=== PATIENT | male | born 1945 | race Two or more races ===

== ENCOUNTER 2019-02-25 19:00 | Inpatient (IN) | payer MEDICARE, MEDICAID ==
[~2019-02-25 19:00] MED LIST: Piperacillin/Tazobact 2.25 gm in 0.9% NS 50 ML IV SCH
[2019-02-25] MEDS ORDERED: Sodium Chloride 0.9% 1,000 ML IV ONE ×2 (19:07→20:13)
--- NOTE | 2019-02-25 19:13 | ED Physician Chart ---
ED Chief Complaint/HPI - Patient Information Date Seen:: 02/25/19 Time Seen:: 19:00 Chief Complaint:: decreased level of consciousness History of Present Illness:: Patient was noted to have decreased level of consciousness after having received about 2 hours of dialysis today. Patient normally tracks with his eyes but he apparently stopped doing so. Paramedics were called. Accu-Chek was 124. Allergies:: Allergies Allergy/AdvReac Type Severity Reaction Status Date / Time No Known Allergies Allergy Verified 02/25/19 19:07 Family MD/PCP:: Paramedics Review:: Transfer documents Reviewed ED Review of Systems - Review of Systems General/Constitutional: No fever Skin: No skin lesions Head: No headache Eyes: No loss of vision ENT: No earache Neck: No neck pain, No swelling Cardio Vascular: No chest pain Pulmonary: No SOB GI: No nausea, No vomiting, No diarrhea G/U: No dysuria Musculoskeletal: No bone or joint pain Endocrine: No polyuria Psychiatric: Prior psych history Hematopoietic: No bruising Allergic/Immuno: No urticaria Neurological: No syncope ED Past Medical History - Past Medical History Past Medical History: DM, Dyslipidemia, Seizures, Dementia, Other (ventilator dependent; status post pneumonia; history of atrial fibrillation; seizure disorder; functional quadriplegia; benign prostatic hypertrophy; hyperlipidemia ; renal failure on dialysis ) Family History: Other (unavailable) Social History: Care Facility Surgical History: PEG/GTube (trach), other (trach) Psychiatricy History: Dementia Family Medical History - Family Member Mother History Unknown: Yes ED Physical Exam - Physical Examination Other Gen/Cons comments:: Chronically ill-appearing; nonresponsive Head: Atraumatic Eyes: Lids, conjuctiva normal Skin: Nl inspection ENMT: External ears, nose nl Neck: No JVD Other Respiratory comments:: harsh breath sounds Other Cardio Vascular comments:: Heart sounds inaudible; pulse rapid and regular GI: No tenderness/rebounding/guarding Extremities: No edema Other Neuro/Psych comments:: Nonresponsive ED Labs/Radiology/EKG Results - Lab Results Results: Laboratory Results WBC 16.7 Th/cmm (4.8-10.8) H 02/25/19 19:50 RBC 2.90 Mil/cmm (4.30-5.70) L 02/25/19 19:50 Hgb 9.0 gm/dL (12-16) L 02/25/19 19:50 Hct 26.8 % (41.0-60) L 02/25/19 19:50 MCV 92.4 fl (80-99) 02/25/19 19:50 MCH 30.9 pg (26.0-30.0) H 02/25/19 19:50 MCHC Differential 33.4 pg (28.0-36.0) 02/25/19 19:50 RDW 18.1 % (11.5-20.0) 02/25/19 19:50 Plt Count 231 Th/cmm (150-400) 02/25/19 19:50 MPV 8.4 fl 02/25/19 19:50 Add Manual Diff YES 02/25/19 19:50 Laboratory Results WBC 16.7 Th/cmm (4.8-10.8) H 02/25/19 19:50 RBC 2.90 Mil/cmm (4.30-5.70) L 02/25/19 19:50 Hgb 9.0 gm/dL (12-16) L 02/25/19 19:50 Hct 26.8 % (41.0-60) L 02/25/19 19:50 MCV 92.4 fl (80-99) 02/25/19 19:50 MCH 30.9 pg (26.0-30.0) H 02/25/19 19:50 MCHC Differential 33.4 pg (28.0-36.0) 02/25/19 19:50 RDW 18.1 % (11.5-20.0) 02/25/19 19:50 Plt Count 231 Th/cmm (150-400) 02/25/19 19:50 MPV 8.4 fl 02/25/19 19:50 Add Manual Diff YES 02/25/19 19:50 Sodium 142 mEq/L (136-145) 02/25/19 19:50 Potassium 3.6 mEq/L (3.5-5.1) 02/25/19 19:50 Chloride 105 mEq/L (98-107) 02/25/19 19:50 Carbon Dioxide 24.2 mEq/L (21.0-31.0) 02/25/19 19:50 Anion Gap 16.4 (7.0-16.0) H 02/25/19 19:50 BUN 47 mg/dL (7-25) H 02/25/19 19:50 Creatinine 2.4 mg/dL (0.7-1.3) H 02/25/19 19:50 Est GFR ( Amer) 35.6 ml/min (>90) 02/25/19 19:50 Est GFR (Non-Af Amer) 29.4 ml/min 02/25/19 19:50 BUN/Creatinine Ratio 19.6 02/25/19 19:50 Glucose 115 mg/dL (70-105) H 02/25/19 19:50 Whole Bld Lactic Acid 1.27 mmol/L (0.60-1.99) 02/25/19 19:50 Calcium 9.5 mg/dL (8.6-10.3) 02/25/19 19:50 - EKG Interpretations Rate & Rhythm: sinus tach with a rate of 147 [place]: normal axis ED Assessment - Assessment General Assessment: Patient's blood gases on 100% oxygen were PO2 241.1 PCO2 34 and pH is 7.418. Patient's FiO2 was decreased to 50% and the pulse ox was 100%. Patient's blood pressure got as low as 68/42. He was given 1 L normal saline intravenously and then Levophed was started as the patient's blood pressure was 69/45. I talked to Dr. Lemos about 2049 and patient to be admitted to ICU. ED Septic Shock - . Is Septic Shock (SBP<90, OR Lactate>4 mmol\L) present?: No - <6hrs of presentation: Assessment of Lungs: Ventilator Assessment of Heart: RRR EKG Interpretation: ST elevation, No ST elevation, No ST depression, Tachy Capillary refill evaluation: Capillary refill < 2 secs Skin Exam: Warm, Dry, Good Turgur ED Reassessment (Disposition) - Reassessment Reassessment Condition:: Unchanged - Diagnosis Diagnosis:: Probable aspiration pneumonia; sepsis; septic shock; renal failure on dialysis; ventilator dependent; leukocytosis - Patient Disposition Admitted to:: ICU Spoke to:: Mitch Lemos Admitting Medical Physician:: Mitch Lemos Condition at Disposition:: Critical
[2019-02-25] MEDS ORDERED: Piperacillin Sodium/Tazobact 3.375 gm Vial IV ONE (20:00)
[2019-02-25 20:01] LABS: MEAN CELL VOLUME 92.4 fl (80-99)
[2019-02-25 20:08] LABS: HEMATOCRIT 26.8 % (41.0-60); MEAN CORPUSCULAR HGB CONC 33.4 pg (28.0-36.0); MEAN PLATELET VOLUME 8.4 fl; PLATELET COUNT 231 Th/cmm (150-400); RED CELL DISTRIBUTION WIDTH 18.1 % (11.5-20.0)
[2019-02-25 20:11] LABS: WHITE BLOOD COUNT 16.7 Th/cmm (4.8-10.8)
[2019-02-25 20:19] LABS: ANION GAP 16.4 (7.0-16.0); CALCIUM SERUM 9.5 mg/dL (8.6-10.3); CARBON DIOXIDE 24.2 mEq/L (21.0-31.0); CREATININE - SERUM 2.4 mg/dL (0.7-1.3); GFR AFRICAN-AMERICAN 35.6 ml/min (>90); GFR NON AFRICAN-AMERICAN 29.4 ml/min; POTASSIUM SERUM 3.6 mEq/L (3.5-5.1)
[2019-02-25] MEDS ORDERED: Norepinephrine 4 mg/4mL Vial IV ONE (20:48)
[2019-02-25 21:09] LABS: MEAN CORPUSCULAR HEMOGLOBIN 30.9 pg (27.0-31.0)
[2019-02-25 21:10] LABS: BAND NEUTROPHILE 0 % (0-10); BASOPHIL 0 % (0-3); EOSINOPHIL 0 % (0-5); LYMPHOCYTE 8 % (20-50); MONOCYTE 3 % (2-10); NEUTROPHILS 89 % (40-80); PLATELET ESTIMATE ADEQUATE (NORMAL)
[2019-02-25 22:06] LABS: sO2c 99.6 % (92.0-100.0)
[2019-02-25 23:37] VITALS: BP 100/53
[2019-02-25 23:39] LABS: pH 7.418 (7.35-7.45)
[2019-02-26] MEDS ORDERED: Dextrose 50% 50 mL Abboject IVP PRN (00:26)
[2019-02-26] MEDS ORDERED: GLUCAGON HCl 1 MG KIT IM PRN (00:26)
[2019-02-26] MEDS ORDERED: Piperacillin Sodium/Tazobact 2.25 gm Vial IV ONE (01:49)
[2019-02-26] MEDS ORDERED: Norepinephrine 4 mg/4mL Vial IV ONE (05:23)
[2019-02-26 05:27] LABS: HEMATOCRIT 27.6 % (41.0-60); HEMOGLOBIN 8.8 gm/dL (12-16); MEAN CELL VOLUME 94.1 fl (80-99); MEAN CORPUSCULAR HEMOGLOBIN 30.1 pg (27.0-31.0); MEAN CORPUSCULAR HGB CONC 31.9 pg (28.0-36.0); MEAN PLATELET VOLUME 8.4 fl; PLATELET COUNT 253 Th/cmm (150-400); RED BLOOD COUNT 2.94 Mil/cmm (3.80-5.80); RED CELL DISTRIBUTION WIDTH 18.7 % (11.5-20.0)
[2019-02-26 05:36] LABS: WHITE BLOOD COUNT 21.3 Th/cmm (4.8-10.8)
--- NOTE | 2019-02-26 05:36 | History and Physical ---
History of Present Illness - HPI Chief Complaint: AMS, hypotension HPI: 73 y/o male who presents to [facility] ER for altered mental status after Hemodialysis. Patient has a history of Acute on Chronic Respiratory Failure s/p tracheostomy, sepsis, septic shock, PNA +Pseudomonas and ESBL Klebsiella and Influenzae B, h/o C. Difficile, Karmen albicans, Atrial Fibrillation, Seizure d/o, CVA, Functional Quadreplegia, Dementia, BPH, HTn, DM, Hyperlipidemia, ESRD on HD, Sacral Decubitus Patient had initial labwork done WBC 16.7 H/H 9/26.8 plat 231K Na 142 K 3.5 Bun/Cr 47/2.4 glu 115 Patient was subsequently admitted to ICU for further evaluation and treatment. Vital Signs: Last Vital Signs Temp 98.1 F 02/26/19 03:06 Pulse 116 02/26/19 05:10 Resp 19 02/26/19 03:06 BP 103/62 02/26/19 03:35 Pulse Ox 100 02/26/19 05:10 Past Medical History Cardiovascular: Report: AFIB, HTN, Hyperlipidemia Pulmonary: Report: Other (Acute on Chronic Respiratory Failure) CUSTOMER CARE REPRESENTATIVE: Report: CVA, Dementia GI: Report: Other (dysphagia, s/p gtube placement) Psych: Report: No Pertinent Hx Musculoskeletal: Report: No Pertinent Hx Rheumatologic: Report: No pertinent Hx Infectious Disease: Report: Other (history of PNA, Sepsis.) Renal/: Report: Other (ESRD on HD) Endocrine: Report: Diabetes Dermatology: Report: No Pertinent Hx - Past Surgical History Past Surgical History: Other (s/p tracheostomy, gastrostomy placement.) Family Medical History - Family Member Mother History Unknown: Yes Social History Smoke: No Alcohol: None Drugs: None Lives: Fpc - Medications Home Medications: Home Medication Medication Instructions Recorded Type Acetaminophen [Tylenol] 650 mg GT Q4HR PRN 02/25/19 History Albuterol/Ipratropium Neb [Duoneb 3 ml HHN Q2HR PRN 02/25/19 History Neb] Albuterol/Ipratropium Neb [Duoneb 3 ml HHN Q6HR 02/25/19 History Neb] Amlodipine Besylate 5 mg GT DAILY 02/25/19 History Apixaban [Eliquis] 2.5 mg GT Q12H 02/25/19 History Ascorbic Acid 500 mg GT DAILY 02/25/19 History Atorvastatin Calcium [Lipitor] 40 mg GT HS 02/25/19 History Chlorhexidine Gluconate [Peridex] 10 ml PO BID 02/25/19 History Dextran 70/Hypromellose/Pf 1 each EACH EYE BID 02/25/19 History [Artificial Tears Drops] Epoetin Sidney [Epogen] 6,000 unit SQ MWF 02/25/19 History Folic Acid [Folate*] 1 mg GT DAILY 02/25/19 History Insulin Detemir [Levemir Insulin] 20 units SUBQ Q12H 02/25/19 History Insulin Lispro Sliding Scale See Protocol SUBQ Q6H 02/25/19 History [humaLOG INSULIN SLIDING SCALE] Lactulose 30 ml GT DAILY PRN 02/25/19 History Levetiracetam [Keppra] 750 mg GT Q12H 02/25/19 History Loperamide [Imodium] 2 mg GT Q4H PRN 02/25/19 History Magnesium Oxide 400 mg GT DAILY 02/25/19 History Metoclopramide HCl 5 mg GT Q6H 02/25/19 History Metoprolol Tartrate 25 mg GT BID 02/25/19 History Multivitamin w/ Minerals 1 tab GT DAILY 02/25/19 History [Theragran M] Omeprazole 20 mg PO DAILY 02/25/19 History Sennosides A and B [Senna] 8.6 mg GT HS 02/25/19 History Vancomycin HCL 250 mg /10mL 500 mg GT QID 02/25/19 History [Vancomycin Oral] - Allergies Allergies/Adverse Reactions: Allergies Allergy/AdvReac Type Severity Reaction Status Date / Time No Known Allergies Allergy Verified 02/25/19 19:07 Review of Systems - Review of Systems Constitutional: Report: No Significant Eyes: Report: No Significant ENT: Report: No Significant Respiratory: Report: No Significant Cardiovascular: Report: No Significant Gastrointestinal: Report: No Significant Genitourinary: Report: No Significant Musculoskeletal: Report: No Significant Skin: Report: No Significant Neurological: Report: No Significant Physical Exam - Physical Exam Neck: Report: Within normal limits Cardiovascular Systems: Report: Irregular rhythm was noted Respiratory: Report: Other (decreased breath sounds noted) Abdomen: Report: PEG site is clean Back: Report: Inspection of back is within normal limits. Skin: Report: Other (sacral decubitus noted) Neuro/Psych: Report: Other (aphasia) - Lab Results All Lab Results last 24 hours: Laboratory Results - last 24 hr 02/25/19 02/25/19 02/25/19 19:04 19:50 19:50 WBC 16.7 H RBC 2.90 L Hgb 9.0 L Hct 26.8 L MCV 92.4 MCH 30.9 MCHC Differential 33.4 RDW 18.1 Plt Count 231 MPV 8.4 Add Manual Diff YES Band Neutrophils % 0 Neutrophils (Manual) 89 H Lymphocytes 8 L Monocytes 3 Eosinophils 0 Basophils 0 Platelet Estimate ADEQUATE Specimen Source aterial Sample Site RB pH 7.418 pCO2 34.0 L pO2 241.0 H HCO3 21.5 Base Excess -2.2 O2 Saturation 99.6 Yeison Test N/A Vent Rate 10 Inspired O2 100 Tidal Volume 450 PEEP 5 Pressure (ins/psv/peep) N/A Critical Value DV Sodium 142 Potassium 3.6 Chloride 105 Carbon Dioxide 24.2 Anion Gap 16.4 H BUN 47 H Creatinine 2.4 H Est GFR ( Amer) 35.6 Est GFR (Non-Af Amer) 29.4 BUN/Creatinine Ratio 19.6 Glucose 115 H Whole Bld Lactic Acid Calcium 9.5 02/25/19 19:50 WBC RBC Hgb Hct MCV MCH MCHC Differential RDW Plt Count MPV Add Manual Diff Band Neutrophils % Neutrophils (Manual) Lymphocytes Monocytes Eosinophils Basophils Platelet Estimate Specimen Source Sample Site pH pCO2 pO2 HCO3 Base Excess O2 Saturation Yeison Test Vent Rate Inspired O2 Tidal Volume PEEP Pressure (ins/psv/peep) Critical Value Sodium Potassium Chloride Carbon Dioxide Anion Gap BUN Creatinine Est GFR ( Amer) Est GFR (Non-Af Amer) BUN/Creatinine Ratio Glucose Whole Bld Lactic Acid 1.27 Calcium - Assessment Assessment: AMS leukoocytosis anemia aspiration PNA Acute on Chronic Respiratory Failure s/p tracheostomy sepsis septic shock PNA +Pseudomonas and ESBL Klebsiella and Influenzae B h/o C. Difficile h/o Karmen albicans Chronic Atrial Fibrillation Seizure d/o CVA Functional Quadreplegia Dementia BPH HTN DM Hyperlipidemia ESRD on HD Sacral Decubitus - Plan Plan: repeat labwork CBC, CMP, Lactic Acid ID consult pulmonary consult cardiology consult CXR tomorrow continue Vanco, Zosyn IV
[2019-02-26] MEDS ORDERED: Albuterol/Ipratropium Neb 3 ML AERS HHN PRN (05:40)
[2019-02-26] MEDS ORDERED: Lactulose 10 Gm/15 mL 30mL UDC GT PRN (05:40)
[2019-02-26 05:41] LABS: ALB/GLOB RATIO 0.9 (1.0-1.8); ALBUMIN 3.3 gm/dL (4.2-5.5); ALKALINE PHOSPHATASE 106 U/L (34-104); ANION GAP 14.2 (7.0-16.0); BILIRUBIN,TOTAL 0.7 mg/dL (0.3-1.0); BUN - UREA NITROGEN 55 mg/dL (7-25); CALCIUM SERUM 9.3 mg/dL (8.6-10.3); CARBON DIOXIDE 25.5 mEq/L (21.0-31.0); CHLORIDE 106 mEq/L (98-107); CREATININE - SERUM 2.7 mg/dL (0.7-1.3); GLUCOSE 87 mg/dL (70-105); POTASSIUM SERUM 3.7 mEq/L (3.5-5.1); SGOT 18 U/L (13-39); SGPT/ALT 24 U/L (7-52); SODIUM SERUM 142 mEq/L (136-145); TOTAL PROTEIN,SERUM 7.2 gm/dL (6.0-8.3)
[2019-02-26] MEDS ORDERED: INSULIN LISPRO SLIDING SCALE 100 UNITS/ML UNIT SUBQ SCH (05:45)
[2019-02-26 06:32] LABS: BAND NEUTROPHILE 0 % (0-10); BASOPHIL 0 % (0-3); EOSINOPHIL 2 % (0-5); LYMPHOCYTE 7 % (20-50); MONOCYTE 5 % (2-10); NEUTROPHILS 86 % (40-80)
[2019-02-26 06:33] LABS: PLATELET ESTIMATE ADEQUATE (NORMAL)
[2019-02-26 07:11] LABS: INR 1.06 (0.5-1.4)
[2019-02-26] MEDS: Albuterol/Ipratropium Neb 3 ML AERS HHN SCH ×5 (07:16→23:08)
--- NOTE | 2019-02-26 08:33 | Diagnostic Imaging Report ---
Portable chest x-ray HISTORY: Shortness of breath There is a poor inspiration. Heart size difficult to assess. Generalized accentuation of the interstitial lung markings. However, no definite focal processes are seen. Tracheostomy noted. Central line tip is in the upper region of the right atrium. IMPRESSION: 1. Allowing for a poor inspiration, no definite focal pulmonary processes.
[2019-02-26] MEDS: Polyvinyl Alcohol Ophth Soln 15 mL Bottle EACH EYE SCH ×2 (08:36→17:55)
[2019-02-26] MEDS: INSULIN LISPRO SLIDING SCALE 100 UNITS/ML UNIT SUBQ SCH ×4 (08:36→23:38)
[2019-02-26] MEDS: Apixaban 2.5 MG TABLET PO SCH ×2 (08:37→20:29)
[2019-02-26] MEDS: Pantoprazole 40 mg/Packet GT SCH (08:38)
[2019-02-26] MEDS: Piperacillin/Tazobact 2.25 gm in 0.9% NS 50 ML IV SCH ×3 (08:39→20:27)
[2019-02-26] MEDS: Chlorhexidine Gluconate 0.12% 15mL Mouthwash MM SCH ×2 (08:40→20:28)
[2019-02-26] MEDS ORDERED: Insulin Detemir 100 units/mL 10mL Vial SUBQ SCH (09:00)
[2019-02-26] MEDS: Venelex 60gm Tube TP SCH ×2 (09:53→17:55)
--- NOTE | 2019-02-26 10:30 | Consultation ---
Consult Note - Consult Note Service Date: 02/26/19 Referring Physician: Mitch Lemos Consult Note: PHYSICIAN Consultation Note: Date of Admission: 02/25/19 Purpose of Consultation: Chief Complaint: History of Present Illness: Patient REBEKAH BUCKLEY was admitted to location Intensive Care Unit with ESRD ,SEPTIC SHOCK,HYPOTENSION. Patient was getting dialysis at [facility] where he became altered and hypotensive and subsequently transferred to the emergency further management Past Medical History: Diagnoses Dyslipidemia Prolonged C. difficile colitis SEPSIS, UNSPECIFIED ORGANISM (02/25/19) PNEUMONITIS DUE TO INHALATION OF FOOD AND VOMIT (02/25/19) PRESSURE ULCER OF SACRAL REGION, UNSPECIFIED STAGE (02/25/19) END STAGE RENAL DISEASE (02/25/19) WEAKNESS (02/25/19) FUNCTIONAL QUADRIPLEGIA (02/25/19) SEVERE SEPSIS WITH SEPTIC SHOCK (02/25/19) DEPENDENCE ON RENAL DIALYSIS (02/25/19) Allergies Allergy/AdvReac Type Severity Reaction Status Date / Time No Known Allergies Allergy Verified 02/25/19 19:07 Vital Signs Temp 98.0 F 02/26/19 06:00 Pulse 114 02/26/19 09:41 Resp 21 02/26/19 06:00 BP 118/53 02/26/19 08:39 Pulse Ox 98 02/26/19 09:41 Intake & Output 02/25/19 02/26/19 02/26/19 18:59 06:59 18:59 Intake Total 207.899 300 Balance 207.899 300 Weight (lbs) 68.674 kg 68.674 kg Intake: Intake, IV Amount 207.899 Norepinephrine 4 mg In 207.899 Dextrose 5% 250 ml @ Per Protocol IV TITR PRN Rx#: [id number] Tube Feeding 200 Other 100 Other: # Voids 0 # Bowel Movements 1 Stool Characteristics Soft Brown Weight Source Estimated Bedscale Laboratory Results - last 24 hr 02/25/19 02/25/19 02/25/19 19:04 19:50 19:50 WBC 16.7 H RBC 2.90 L Hgb 9.0 L Hct 26.8 L MCV 92.4 MCH 30.9 MCHC Differential 33.4 RDW 18.1 Plt Count 231 MPV 8.4 Add Manual Diff YES Band Neutrophils % 0 Neutrophils (Manual) 89 H Lymphocytes 8 L Monocytes 3 Eosinophils 0 Basophils 0 Platelet Estimate ADEQUATE PT INR Specimen Source aterial Sample Site RB pH 7.418 pCO2 34.0 L pO2 241.0 H HCO3 21.5 Base Excess -2.2 O2 Saturation 99.6 Yeison Test N/A Vent Rate 10 Inspired O2 100 Tidal Volume 450 PEEP 5 Pressure (ins/psv/peep) N/A Critical Value DV Sodium 142 Potassium 3.6 Chloride 105 Carbon Dioxide 24.2 Anion Gap 16.4 H BUN 47 H Creatinine 2.4 H Est GFR ( Amer) 35.6 Est GFR (Non-Af Amer) 29.4 BUN/Creatinine Ratio 19.6 Glucose 115 H POC Glucose Whole Bld Lactic Acid Calcium 9.5 Total Bilirubin AST ALT Alkaline Phosphatase Total Protein Albumin Globulin Albumin/Globulin Ratio 02/25/19 02/26/19 02/26/19 19:50 04:45 04:45 WBC 21.3 H* RBC 2.94 L Hgb 8.8 L Hct 27.6 L MCV 94.1 MCH 30.1 MCHC Differential 31.9 RDW 18.7 Plt Count 253 MPV 8.4 Add Manual Diff YES Band Neutrophils % 0 Neutrophils (Manual) 86 H Lymphocytes 7 L Monocytes 5 Eosinophils 2 Basophils 0 Platelet Estimate ADEQUATE PT INR Specimen Source Sample Site pH pCO2 pO2 HCO3 Base Excess O2 Saturation Yeison Test Vent Rate Inspired O2 Tidal Volume PEEP Pressure (ins/psv/peep) Critical Value Sodium 142 Potassium 3.7 Chloride 106 Carbon Dioxide 25.5 Anion Gap 14.2 BUN 55 H Creatinine 2.7 H Est GFR ( Amer) TNP Est GFR (Non-Af Amer) TNP BUN/Creatinine Ratio 20.4 Glucose 87 POC Glucose Whole Bld Lactic Acid 1.27 Calcium 9.3 Total Bilirubin 0.7 AST 18 ALT 24 Alkaline Phosphatase 106 H Total Protein 7.2 Albumin 3.3 L Globulin 3.9 Albumin/Globulin Ratio 0.9 L 02/26/19 02/26/19 02/26/19 04:45 04:54 06:05 WBC RBC Hgb Hct MCV MCH MCHC Differential RDW Plt Count MPV Add Manual Diff Band Neutrophils % Neutrophils (Manual) Lymphocytes Monocytes Eosinophils Basophils Platelet Estimate PT 11.0 INR 1.06 Specimen Source Sample Site pH pCO2 pO2 HCO3 Base Excess O2 Saturation Yeison Test Vent Rate Inspired O2 Tidal Volume PEEP Pressure (ins/psv/peep) Critical Value Sodium Potassium Chloride Carbon Dioxide Anion Gap BUN Creatinine Est GFR ( Amer) Est GFR (Non-Af Amer) BUN/Creatinine Ratio Glucose POC Glucose 83 Whole Bld Lactic Acid 0.69 Calcium Total Bilirubin AST ALT Alkaline Phosphatase Total Protein Albumin Globulin Albumin/Globulin Ratio Home Medication Medication Instructions Recorded Type Acetaminophen [Tylenol] 650 mg GT Q4HR PRN 02/25/19 History Albuterol/Ipratropium Neb [Duoneb 3 ml HHN Q2HR PRN 02/25/19 History Neb] Albuterol/Ipratropium Neb [Duoneb 3 ml HHN Q6HR 02/25/19 History Neb] Amlodipine Besylate 5 mg GT DAILY 02/25/19 History Apixaban [Eliquis] 2.5 mg GT Q12H 02/25/19 History Ascorbic Acid 500 mg GT DAILY 02/25/19 History Atorvastatin Calcium [Lipitor] 40 mg GT HS 02/25/19 History Chlorhexidine Gluconate [Peridex] 10 ml PO BID 02/25/19 History Dextran 70/Hypromellose/Pf 1 each EACH EYE BID 02/25/19 History [Artificial Tears Drops] Epoetin [place] [Epogen] 6,000 unit SQ MWF 02/25/19 History Folic Acid [Folate*] 1 mg GT DAILY 02/25/19 History Insulin Detemir [Levemir Insulin] 20 units SUBQ Q12H 02/25/19 History Insulin Lispro Sliding Scale See Protocol SUBQ Q6H 02/25/19 History [humaLOG INSULIN SLIDING SCALE] Lactulose 30 ml GT DAILY PRN 02/25/19 History Levetiracetam [Keppra] 750 mg GT Q12H 02/25/19 History Loperamide [Imodium] 2 mg GT Q4H PRN 02/25/19 History Magnesium Oxide 400 mg GT DAILY 02/25/19 History Metoclopramide HCl 5 mg GT Q6H 02/25/19 History Metoprolol Tartrate 25 mg GT BID 02/25/19 History Multivitamin w/ Minerals 1 tab GT DAILY 02/25/19 History [Theragran M] Omeprazole 20 mg PO DAILY 02/25/19 History Sennosides A and B [Senna] 8.6 mg GT HS 02/25/19 History Vancomycin HCL 250 mg /10mL 500 mg GT QID 02/25/19 History [Vancomycin Oral] Current Medications Generic Name Dose Route Start Last Admin Trade Name Freq PRN Reason Stop Dose Admin Acetaminophen 650 mg 02/26/19 01:36 02/26/19 08:37 Tylenol 650mg/20.3ml Suspension GT 04/27/19 01:35 650 mg Q6H PRN Administration Fever >101 Acetaminophen 650 mg 02/26/19 05:40 Tylenol GT 04/27/19 05:39 Q4HR PRN Pain or Fever >101 Albuterol/Ipratropium 3 ml 02/26/19 05:40 Duoneb Neb [facility] 04/27/19 05:39 Q2HRT PRN Shortness of Breath Albuterol/Ipratropium 3 ml 02/26/19 07:00 02/26/19 07:16 Duoneb Neb [facility] 04/27/19 06:59 3 ml Q6HRT AMANDA Administration Amlodipine Besylate 5 mg 02/26/19 09:00 02/26/19 08:38 Norvasc GT 04/27/19 08:59 Not Given DAILY [facility] Artificial Tears 1 drop 02/26/19 09:00 02/26/19 08:36 Artificial Tears Ophth Soln EACH EYE 04/27/19 08:59 1 drop BID AMANDA Administration Ascorbic Acid 500 mg 02/26/19 09:00 02/26/19 08:38 Vitamin C GT 04/27/19 08:59 500 mg DAILY AMANDA Administration Atorvastatin Calcium 40 mg 02/26/19 21:00 Lipitor GT 04/27/19 20:59 HS [facility] [place] Oil/[place] Balsam/Trypsin 1 appl 02/26/19 09:15 02/26/19 09:53 Venelex TP 04/27/19 09:14 1 appl BID [facility] Administration Chlorhexidine Gluconate 15 ml 02/26/19 08:00 02/26/19 08:40 Peridex MM 04/27/19 07:59 15 ml 0800,2000 [facility] Administration Dextrose 50 ml 02/26/19 00:26 D50w IVP 04/27/19 00:25 PRN PRN Blood Glucose less than 70 Dextrose 18.75 gm 02/26/19 00:26 Glutose 40% PO 04/27/19 00:25 PRN PRN Blood Glucose less than 70 Epoetin Sidney 6,000 units 02/26/19 15:00 Epogen SUBQ 04/27/19 14:59 MoWeFr AMANDA Folic Acid 1 mg 02/26/19 09:00 02/26/19 08:38 Folate GT 04/27/19 08:59 1 mg DAILY AMANDA Administration Glucagon 1 mg 02/26/19 00:26 Glucagen IM 04/27/19 00:25 PRN PRN Blood Glucose less than 70 Norepinephrine Bitartrate 4 mg 254 mls @ 0 mls/hr 02/26/19 00:35 02/26/19 06: 55 / Dextrose IV 04/27/19 00:34 6 mcg/min TITR PRN 22.86 mls/hr BP MAINTENANCE (PER PROTOCOL) Titration Protocol Per Protocol Piperacillin Sod/Tazobactam 50 mls @ 100 mls/hr 02/26/19 08:00 02/26/19 08:39 Sod 2.25 gm/ Sodium Chloride IV 04/27/19 07:59 100 mls/hr Q6H AMANDA Administration Insulin Detemir 20 units 02/26/19 09:00 02/26/19 09:53 Levemir Insulin SUBQ 04/27/19 08:59 Not Given Q12H [facility] Insulin Human Lispro 0 units 02/26/19 06:00 02/26/19 08:36 Humalog Insulin Sliding Scale SUBQ 04/27/19 05:59 Not Given Q6HR [facility] Protocol Lactulose 30 gm 02/26/19 05:40 Cephulac GT DAILY PRN Constipation Levetiracetam 750 mg 02/26/19 09:00 02/26/19 08:38 Keppra PO 04/27/19 08:59 750 mg Q12H AMANDA Administration Magnesium Oxide 400 mg 02/26/19 09:00 02/26/19 08:38 Mag-Oxide GT 04/27/19 08:59 400 mg DAILY AMANDA Administration Metoclopramide HCl 5 mg 02/26/19 08:00 02/26/19 08:37 Reglan GT 04/27/19 07:59 5 mg Q6H AMANDA Administration Metoprolol Tartrate 25 mg 02/26/19 09:00 02/26/19 08:39 Lopressor GT 04/27/19 08:59 Not Given BID [facility] Miscellaneous 1 ea 02/25/19 21:24 Zosyn Iv Per Pharmacy 04/26/19 21:23 PRN PRN PROTOCOL Miscellaneous 1 ea 02/26/19 06:06 Vancomycin Iv Per Pharmacy 04/27/19 06:05 PRN PRN PROTOCOL Pantoprazole Sodium 40 mg 02/26/19 09:00 02/26/19 08:38 Protonix GT 04/27/19 08:59 40 mg DAILY AMANDA Administration Review of Systems: Patient is poorly and his response unable to give any review of system Social History Smoking Status Unknown if ever smoked Drug Use No Alcohol Use No Family Medical History Family Medical History Start: 02/25/19 22: 06 Freq: ONCE Status: Active Protocol: Document 02/25/19 22:06 [email or web address] (Rec: 02/26/19 00:37 [id number]) Family Medical History Mother History Unknown Yes Physical Exam: Trach vent not in any acute distress however hypotensive with levo with map of 60 General: No acute distress laying down flat exuberant amount of diarrhea HEENT: pupils reactive supple neck tracheostomy noted. Nephropathy Neck: Tracheostomy intact Cardio: S1-S2 regular systolic ejection murmur Respiratory: Clear symmetrical Abdominal: Soft and nontender G-tube in place Genital/Urinary: Extremities: No edema pulses are intact warm is no cyanosis Neurological: Open desires faculties intact his baseline unable to move much on the left upper extremity and lower summary Assessment: CVA C. difficile colitis Decubitus ulceration Respiratory failure ESRD disease on hemodialysis Sepsis Hypotension Plan: We'll dialyze the patient in the a.m. Sepsis mentating blood pressure IV antibiotics Vancomycin-resistant colitis needing possible'dificit plan per infectious disease Tony, Patric Guevara [phone]
[2019-02-26] MEDS ORDERED: Probiotic Screen MC PRN (13:04)
[2019-02-26] MEDS ORDERED: VTE Chemical Prophylaxis Screen/Admission MC PRN (13:11)
[2019-02-26] MEDS ORDERED: Epoetin Alfa 20000 Units/mL Vial SUBQ SCH (15:00)
[2019-02-26] MEDS: Budesonide 0.5 Mg/2 mL Ud HHN SCH (18:46)
[2019-02-26] MEDS: Insulin Glargine 100 units/ml 10ml Vial SUBQ SCH (20:46)
[2019-02-27] MEDS: Piperacillin/Tazobact 2.25 gm in 0.9% NS 50 ML IV SCH ×4 (02:00→19:22)
[2019-02-27] MEDS: Albuterol/Ipratropium Neb 3 ML AERS HHN SCH ×6 (03:18→22:15)
--- NOTE | 2019-02-27 03:24 | Consultation ---
DATE OF CONSULTATION: 02/26/2019 PULMONARY AND CRITICAL CARE CONSULTATION REASON FOR CONSULT: The patient with respiratory failure. CONSULT NOTE: This is a 73-year-old gentleman who has a multitude of medical problems: 1. Chronic renal failure, on hemodialysis. 2. Chronic respiratory failure with tracheostomy. 3. Also history of previous septic shock, pneumonia, pseudomonas and ESBL as well as multiple organisms also including C. diff, Karmen. 4. Atrial fibrillation. 5. Seizure and CVA. 6. Also has functional quadriparesis. The patient was brought in from the dialysis center because of altered state of mind. Subsequently, the patient had initial workup in the hospital and he said to put on a vent and I was asked to see this patient for further care and necessary treatment. Unfortunately, the patient would not give much of a medical history. PAST MEDICAL REPORT: Respiratory failure, functional quadriparesis, BPH, hypertension, dyslipoproteinemia, hemodialysis, sacral decubitus, also had numerous resistant organisms in the past. PHYSICAL FINDINGS: GENERAL: This is an elderly looking gentleman. VITAL SIGNS: Currently on SMV of 10 with 30% of oxygen, saturating okay. On exam, T-max 98.7, heart rate 110-120, BP 102/57 and saturation 100% on SMV of 10 with 30%. HEENT: Head is essentially unremarkable. Pupils appear to be equal and reacting to light. Conjunctivae are slightly pallor. Oral cavity, limited exam, otherwise unremarkable. NECK: Shows a tracheostomy tube in situ. Appears to be clean. CHEST: Shows occasional rhonchi with generalized diminished air entry. HEART: Irregular. ABDOMEN: Shows G-tube, otherwise unremarkable. EXTREMITIES: Shows very minimal trace of peripheral edema. LABORATORY DATA: The patient's initial white count was 16,000, hemoglobin 9 grams. ABG; pO2 is 241 initially on 100% of oxygen since oxygen is cut down. Electrolytes are okay with creatinine 2.4, BUN is 47. On today's lab, the patient's white count has jumped up to 21,000 and the patient's chest x-ray shows some Joey catheter on the right side. There is some haziness overall on the right side and left side appears to be reasonably clean. ASSESSMENT: The patient has acute on chronic respiratory failure, exact precipitating factors is not clearcut, suspect possibly sepsis with history of multiple comorbidities including severe frontal quadriparesis, hemodialysis, previous history of pseudomonas, Clostridium difficile, chronic atrial fibrillation, etc. PLANS AND SUGGESTIONS: We will go ahead and get a ren culture, give aggressive respiratory care. Await for the cultures to come back. In the meantime, continue rest of other treatment, etc. and go from there. JOB# [id number]
[2019-02-27 05:20] LABS: % BASOPHILS 0.3 % (0.0-2.0); % EOSINOPHILS 2.2 % (0.0-5.0); % LYMPHOCYTES 10.2 % (20.0-50.0); % MONOCYTES 7.9 % (2.0-10.0); % NEUTROPHILS 79.4 % (40.0-80.0); BASOPHILE ABSOLUTE 0.1 Th/cumm (0-0.2); EOSINOPHILE ABSOLUTE 0.4 Th/cmm (0.1-0.4); HEMATOCRIT 24.8 % (41.0-60); HEMOGLOBIN 8.1 gm/dL (12-16); LYMPHOCYTE ABSOLUTE 1.8 Th/cmm (1.5-3.0); MEAN CELL VOLUME 93.3 fl (80-99); MEAN CORPUSCULAR HEMOGLOBIN 30.5 pg (27.0-31.0); MEAN CORPUSCULAR HGB CONC 32.7 pg (28.0-36.0); MEAN PLATELET VOLUME 8.7 fl; MONOCYTE ABSOLUTE 1.4 Th/cmm (0.3-1.0); NEUTROPHILE ABSOLUTE 13.9 Th/cmm (1.8-8.0); PLATELET COUNT 241 Th/cmm (150-400); RED BLOOD COUNT 2.66 Mil/cmm (3.80-5.80); RED CELL DISTRIBUTION WIDTH 17.9 % (11.5-20.0)
[2019-02-27 05:29] LABS: WHITE BLOOD COUNT 17.6 Th/cmm (4.8-10.8)
[2019-02-27 05:38] LABS: ALB/GLOB RATIO 0.8 (1.0-1.8); ALBUMIN 3.1 gm/dL (4.2-5.5); BILIRUBIN,DIRECT 0.16 mg/dL (0.0-0.2); BILIRUBIN,TOTAL 0.5 mg/dL (0.3-1.0); MAGNESIUM 2.8 mg/dL (1.9-2.7); TOTAL PROTEIN,SERUM 6.8 gm/dL (6.0-8.3)
[2019-02-27] MEDS: INSULIN LISPRO SLIDING SCALE 100 UNITS/ML UNIT SUBQ SCH ×4 (05:43→23:41)
--- NOTE | 2019-02-27 05:57 | General Progress Note ---
Subjective - Review of Systems Service Date: 02/27/19 Subjective: Patient was seen and examined. Off the Levophed. Awake, alert, responsive to verbal stimuli. Objective - Results Result Diagrams: 02/27/19 04:45 02/26/19 04:45 Recent Labs: Laboratory Last Values WBC 17.6 Th/cmm (4.8-10.8) H 02/27/19 04:45 RBC 2.66 Mil/cmm (3.80-5.80) L 02/27/19 04:45 Hgb 8.1 gm/dL (12-16) L 02/27/19 04:45 Hct 24.8 % (41.0-60) L 02/27/19 04:45 MCV 93.3 fl (80-99) 02/27/19 04:45 MCH 30.5 pg (27.0-31.0) 02/27/19 04:45 MCHC Differential 32.7 pg (28.0-36.0) 02/27/19 04:45 RDW 17.9 % (11.5-20.0) 02/27/19 04:45 Plt Count 241 Th/cmm (150-400) 02/27/19 04:45 MPV 8.7 fl 02/27/19 04:45 Add Manual Diff YES 02/26/19 04:45 Neutrophils % 79.4 % (40.0-80.0) 02/27/19 04:45 Band Neutrophils % 0 % (0-10) 02/26/19 04:45 Lymphocytes % 10.2 % (20.0-50.0) L 02/27/19 04:45 Monocytes % 7.9 % (2.0-10.0) 02/27/19 04:45 Eosinophils % 2.2 % (0.0-5.0) 02/27/19 04:45 Basophils % 0.3 % (0.0-2.0) 02/27/19 04:45 Neutrophils (Manual) 86 % (40-80) H 02/26/19 04:45 Lymphocytes 7 % (20-50) L 02/26/19 04:45 Monocytes 5 % (2-10) 02/26/19 04:45 Eosinophils 2 % (0-5) 02/26/19 04:45 Basophils 0 % (0-3) 02/26/19 04:45 Platelet Estimate ADEQUATE (NORMAL) 02/26/19 04:45 PT 11.0 SECONDS (9.5-11.5) 02/26/19 04:45 INR 1.06 (0.5-1.4) 02/26/19 04:45 Specimen Source aterial 02/25/19 19:04 Sample Site RB 02/25/19 19:04 pH 7.418 (7.35-7.45) 02/25/19 19:04 pCO2 34.0 mmHg (35.0-45.0) L 02/25/19 19:04 pO2 241.0 mmHg (80.0-100.0) H 02/25/19 19:04 HCO3 21.5 mEq/L (20.0-26.0) 02/25/19 19:04 Base Excess -2.2 mEq/L (-3.0-3.0) 02/25/19 19:04 O2 Saturation 99.6 % (92.0-100.0) 02/25/19 19:04 Yeison Test N/A 02/25/19 19:04 Vent Rate 10 02/25/19 19:04 Inspired O2 100 02/25/19 19:04 Tidal Volume 450 02/25/19 19:04 PEEP 5 02/25/19 19:04 Pressure (ins/psv/peep) N/A 02/25/19 19:04 Critical Value DV 02/25/19 19:04 Sodium 142 mEq/L (136-145) 02/26/19 04:45 Potassium 3.7 mEq/L (3.5-5.1) 02/26/19 04:45 Chloride 106 mEq/L (98-107) 02/26/19 04:45 Carbon Dioxide 25.5 mEq/L (21.0-31.0) 02/26/19 04:45 Anion Gap 14.2 (7.0-16.0) 02/26/19 04:45 BUN 55 mg/dL (7-25) H 02/26/19 04:45 Creatinine 2.7 mg/dL (0.7-1.3) H 02/26/19 04:45 Est GFR ( Amer) TNP 02/26/19 04:45 Est GFR (Non-Af Amer) TNP 02/26/19 04:45 BUN/Creatinine Ratio 20.4 02/26/19 04:45 Glucose 87 mg/dL (70-105) 02/26/19 04:45 POC Glucose 189 MG/DL (70 - 105) H 02/27/19 04:54 Whole Bld Lactic Acid 0.69 mmol/L (0.60-1.99) 02/26/19 06:05 Calcium 9.3 mg/dL (8.6-10.3) 02/26/19 04:45 Total Bilirubin 0.7 mg/dL (0.3-1.0) 02/26/19 04:45 AST 18 U/L (13-39) 02/26/19 04:45 ALT 24 U/L (7-52) 02/26/19 04:45 Alkaline Phosphatase 106 U/L (34-104) H 02/26/19 04:45 Total Protein 7.2 gm/dL (6.0-8.3) 02/26/19 04:45 Albumin 3.3 gm/dL (4.2-5.5) L 02/26/19 04:45 Globulin 3.9 gm/dL 02/26/19 04:45 Albumin/Globulin Ratio 0.9 (1.0-1.8) L 02/26/19 04:45 - Physical Exam Vitals and I&O: Vital Signs Temp 98.2 F 02/27/19 05:00 Pulse 108 02/27/19 05:00 Resp 24 02/27/19 05:00 BP 106/55 02/27/19 05:00 Pulse Ox 100 02/27/19 05:00 Intake & Output 02/26/19 02/26/19 02/27/19 06:59 18:59 06:59 Intake Total 207.899 416.764 780 Output Total 100 Balance 207.899 416.764 680 Weight (lbs) 68.674 kg 68.674 kg 68.577 kg Intake: Intake, IV Amount 207.899 116.764 100 Norepinephrine 4 mg In 207.899 16.764 Dextrose 5% 250 ml @ Per Protocol IV TITR PRN Rx#: [id number] Piperacillin Sodium/ 100 100 Tazobact 2.25 gm In Sodium Chloride 0.9% 50 ml @ 100 mls/hr IV Q6H [facility] Rx#:[id number] Tube Feeding 200 480 Other 100 200 Output: Stool 100 Other: # Voids 0 # Bowel Movements 1 Stool Characteristics Soft Liquid Brown Brown Weight Source Estimated Bedscale Bedscale Active Medications: Current Medications Acetaminophen (Tylenol 650mg/20.3ml Suspension) 650 mg GT Q6H PRN PRN Reason: Fever >101 Stop: 04/27/19 01:35 Last Admin: 02/26/19 23:38 Dose: 650 mg Acetaminophen (Tylenol) 650 mg GT Q4HR PRN PRN Reason: Pain or Fever >101 Stop: 04/27/19 05:39 Last Admin: 02/26/19 17:54 Dose: 650 mg Albuterol/Ipratropium (Duoneb Neb) 3 ml HHN Q2HRT PRN PRN Reason: Shortness of Breath Stop: 04/27/19 05:39 Albuterol/Ipratropium (Duoneb Neb) 3 ml HHN Q4HRT [facility] Stop: 04/27/19 14:59 Last Admin: 02/27/19 03:18 Dose: 3 ml Amlodipine Besylate (Norvasc) 5 mg GT DAILY [facility] Stop: 04/27/19 08:59 Last Admin: 02/26/19 08:38 Dose: Not Given Artificial Tears (Artificial Tears Ophth Soln) 1 drop EACH EYE BID [facility] Stop: 04/27/19 08:59 Last Admin: 02/26/19 17:55 Dose: 1 drop Ascorbic Acid (Vitamin C) 500 mg GT DAILY [facility] Stop: 04/27/19 08:59 Last Admin: 02/26/19 08:38 Dose: 500 mg Atorvastatin Calcium (Lipitor) 40 mg GT HS [facility] Stop: 04/27/19 20:59 Last Admin: 02/26/19 20:28 Dose: 40 mg Budesonide (Pulmicort) 0.5 mg HHN BIDRT [facility] Stop: 04/27/19 18:59 Last Admin: 02/26/19 18:46 Dose: 0.5 mg [place] Oil/[place] Balsam/Trypsin (Venelex) 1 appl TP BID [facility] Stop: 04/27/19 09:14 Last Admin: 02/26/19 17:55 Dose: 1 appl Chlorhexidine Gluconate (Peridex) 15 ml MM 0800,1999 [facility] Stop: 04/27/19 07:59 Last Admin: 02/26/19 20:28 Dose: 15 ml Dextrose (D50w) 50 ml IVP PRN PRN PRN Reason: Blood Glucose less than 70 Stop: 04/27/19 00:25 Dextrose (Glutose 40%) 18.75 gm PO PRN PRN PRN Reason: Blood Glucose less than 70 Stop: 04/27/19 00:25 Epoetin [place] (Epogen) 6,000 units SUBQ MoWeFr [facility] Stop: 04/27/19 14:59 Last Admin: 02/26/19 18:00 Dose: Not Given Folic Acid (Folate) 1 mg GT DAILY [facility] Stop: 04/27/19 08:59 Last Admin: 02/26/19 08:38 Dose: 1 mg Glucagon (Glucagen) 1 mg IM PRN PRN PRN Reason: Blood Glucose less than 70 Stop: 04/27/19 00:25 Norepinephrine Bitartrate 4 mg (/ Dextrose) 254 mls @ 0 mls/hr IV TITR PRN; Protocol PRN Reason: BP MAINTENANCE (PER PROTOCOL) Stop: 04/27/19 00:34 Last Titration: 02/26/19 07:39 Dose: 0 mcg/min, 0 mls/hr Piperacillin Sod/Tazobactam (Sod 2.25 gm/ Sodium Chloride) 50 mls @ 100 mls/hr IV Q6H [facility] Stop: 04/27/19 07:59 Last Infusion: 02/27/19 02:30 Dose: Infused Insulin Glargine (Lantus Insulin) 20 units SUBQ Q12HR [facility] Stop: 04/27/19 20:59 Last Admin: 02/26/19 20:46 Dose: 20 units Insulin Human Lispro (Humalog Insulin Sliding Scale) 0 units SUBQ Q6HR [facility]; Protocol Stop: 04/27/19 05:59 Last Admin: 02/27/19 05:43 Dose: 2 units Lactobacillus Rhamnosus (Culturelle 15b) 1 each PO DAILY [facility] Stop: 04/28/19 08:59 Lactulose (Cephulac) 30 gm GT DAILY PRN PRN Reason: Constipation Levetiracetam (Keppra) 750 mg PO Q12H [facility] Stop: 04/27/19 08:59 Last Admin: 02/26/19 20:28 Dose: 750 mg Magnesium Oxide (Mag-Oxide) 400 mg GT DAILY [facility] Stop: 04/27/19 08:59 Last Admin: 02/26/19 08:38 Dose: 400 mg Metoclopramide HCl (Reglan) 5 mg GT Q6H [facility] Stop: 04/27/19 07:59 Last Admin: 02/27/19 02:45 Dose: 5 mg Metoprolol Tartrate (Lopressor) 25 mg GT BID [facility] Stop: 04/27/19 08:59 Last Admin: 02/26/19 17:06 Dose: Not Given Miscellaneous (Zosyn Iv Per Pharmacy) 1 ea PRN PRN PRN Reason: PROTOCOL Stop: 04/26/19 21:23 Miscellaneous (Vancomycin Iv Per Pharmacy) 1 [facility] PRN PRN PRN Reason: PROTOCOL Stop: 04/27/19 06:05 Miscellaneous (Probiotic Screen) 1 [facility] PRN PRN PRN Reason: PROTOCOL Stop: 04/27/19 13:03 Miscellaneous (Vte Chemical Prophylaxis Screen/ Admission) 1 [facility] PRN PRN PRN Reason: PROTOCOL Stop: 04/27/19 13:10 Pantoprazole Sodium (Protonix) 40 mg GT DAILY [facility] Stop: 04/27/19 08:59 Last Admin: 02/26/19 08:38 Dose: 40 mg Vancomycin HCl (Vancomycin Oral) 250 mg PO QID [facility] Stop: 04/28/19 08:59 General: Alert, No acute distress Neck: Supple, Other (s/p tracheostomy) Cardiovascular: Other (irregularly irregular) Lungs: Clear to auscultation Abdomen: Bowel sounds, Soft Extremities: Edema, no Clubbing, no Cyanosis - Procedures Procedures: Procedures Procedure Code Date RESPIRATORY VENTILATION, LESS THAN 24 CONSECUTIVE HOURS [id number] 02/25/19 Assessment/Plan - Assessment Assessment: AMS encephalopathy leukoocytosis anemia aspiration PNA Acute on Chronic Respiratory Failure s/p tracheostomy sepsis septic shock PNA +Pseudomonas and ESBL Klebsiella and Influenzae B h/o C. Difficile h/o Karmen albicans Chronic Atrial Fibrillation Seizure d/o CVA Functional Quadreplegia Dementia BPH HTN DM Hyperlipidemia ESRD on HD Sacral Decubitus - Plan Plan: repeat labwork CBC, CMP, Lactic Acid ID consult pulmonary consult cardiology consult CXR tomorrow continue Vanco, Zosyn IV Nutritional Asmnt/Malnutr-PDOC - Dietary Evaluation Malnutrition Findings (Please click <Entered> for more info): Nutritional Asmnt/Malnutrition Start: 02/26/19 16: 42 Text: Status: Complete Freq: Protocol: Document 02/26/19 16:42 [email or web address] (Rec: 02/26/19 17:14 [email or web address] [id number]) Nutritional Asmnt/Malnutrition Patient General Information Nutritional Screening High Risk Consult Diagnosis AMS after HD, PNA, septic shock, hypotension Pertinent Medical Hx/Surgical Hx ESRD on HD, CVA, functional quadriplegia, DM, HTN, HLD, dysphagia s/p GT, sacral decubitus, hx of C.diff Subjective Information Pt on pressor and vent support , on trach, Nepro at 40 ml/hr upon visit, tolerating TF with no GRV per RN, +diarrhea, rectal tube placed. Pt on multiple abx. +unstageable sacrum, recommended TF meets 95% RDI. No family at bedside, unable to assess nutrition intake hx or wt hx. RN made aware of recs, states verbal order for 1500ml fluid restriction. Pending HD 02/27. Wt obtained by bedscale. Will reassess kcal needs once pt off vent support. Current Diet Order/ Nutrition Support Nepro at 40ml/hr x 20 hours= 800ml, 1440kcal, 65g protein, 581ml free water Patient / S.O Not Indicated Pertinent Medications vitamin C 500mg, Lipitor, folic acid, Levemir, Humalog, magnesium oxide, Reglan Q6h, norepinephrine, IV abx, Protonix, lactulose PRN Pertinent Labs (02/26) BUN 55, Cr 2.7, Glu 87, Alk Phos 106, Alb 3.3 Nutritional Hx/Data Height 1.68 m Height (Calculated Centimeters) 167.6 Current Weight (lbs) 68.492 kg Weight (Calculated Kilograms) 68.5 Weight (Calculated Grams) 29952.4 [place] Body Weight 142 lb Body Mass Index (BMI) 24.3 Weight Status Approriate GI Symptoms GI Symptoms Diarrhea Last BM 02/26 Difficult in: Swallowing Skin Integrity/Comment: unstageable sacrum Estimated Nutritional Goals BEE in Kcals: Adj wt of IBW Calories/Kcals/Kg 6596-3564 kcal Kcals Calculated 25-30 kcal/kg Protein: Adj wt of IBW Protein g/k-91g Protein Calculated 1.1-1.4 g/kg Fluid: ml 1000ml+UOP (dialysis) Nutritional Problem 2. Problem Problem Increased nutrient needs Etiology wound healing, ESRD Signs/Symptoms: unstageable sacrum, on HD 1. Problem Problem Inadequate enteral infusion Etiology new admit Signs/Symptoms: Nepro at 40ml/hr x 20 hours meets 89% kcal, 90% protein needs (suboptimal). Intervention/Recommendation Comments 1. Increase Nepro to 45 ml/hr goal rate x 20 hours= 900ml, 1620kcal, 73g protein, 654ml free water; meets 100% estimated kcal/protein needs 2. Consider water flush 100ml Q6h per MD 3. F/U as high risk in 2-3 days Expected Outcomes/Goals Expected Outcomes/Goals 1. Pt to meet at least 90% of nutritional needs via nutrition support with tolerance 2. Monitor TF rate, tolerance, wt, skin integrity and labs Mera Kaplan RD
--- NOTE | 2019-02-27 07:04 | Consultation ---
DATE OF CONSULTATION: 02/26/2019 REFERRING PHYSICIAN: Dr. Lemos. REASON FOR CONSULTATION: Sepsis, septic shock. HISTORY OF PRESENT ILLNESS: The patient is a 73-year-old with a past medical history of vent-dependent respiratory failure, history of total hysterectomy, tracheostomy, dysphagia status post G-tube, sepsis, septic shock, pneumonia with Pseudomonas and extended spectrum beta-lactamase Klebsiella infection, infection of influenza B in the past, history of C. difficile colitis, receiving vancomycin, atrial fibrillation, Karmen albicans infection, seizure disorder, cerebrovascular accident, functional quadriplegia, dementia, benign prostatic hypertrophy, hypertension, diabetes mellitus type 2, hyperlipidemia, sacral decubitus ulcer, brought in from nursing facility for altered mental status during hemodialysis. On initial evaluation, the patient's temperature was in the 100.8 degrees Fahrenheit and WBC count was 16,700. The patient became hypotensive, required fluid boluses. Lactic acid was normal. The patient was started on Levophed which was tapered off. Sepsis workup was performed and the patient was started on vancomycin and Zosyn. ID consult was called for antibiotic management. PAST MEDICAL HISTORY: Chronic kidney disease stage 5, on hemodialysis, Joey catheter in the right upper chest, vent-dependent respiratory failure status post tracheostomy, sepsis, septic shock, pneumonia Pseudomonas and extended spectrum beta-lactamase Klebsiella infection in the past, influenza B infection in the past, history of C. difficile colitis started on vancomycin p.o., Karmen albicans infection, atrial fibrillation, seizure disorder, cerebrovascular accident, functional quadriplegia, dementia, benign prostatic hypertrophy, hypertension, diabetes mellitus type 2, hyperlipidemia, and sacral decubitus ulcer. ALLERGIES: NKDA. MEDICATIONS: As per medication reconciliation sheet. Antibiotic baker, the patient is receiving Zosyn and has received vancomycin IV yesterday. SOCIAL HISTORY: Includes recent skilled nursing. No history of smoking, alcohol or drug use. REVIEW OF SYSTEMS: Unable to obtain, but as per the record, the patient had a fever, altered mental status, and low blood pressure. PHYSICAL EXAMINATION: GENERAL: The patient is comfortable lying in bed, on the ventilator, status post tracheostomy. VITAL SIGNS: Shows temperature is 100.5 degrees Fahrenheit, pulse is 127, respiration is 27, blood pressure 122/50, and oxygen saturation 100%. GENERAL: The patient is comfortable lying in bed, not in acute distress. HEENT: Head is normocephalic and atraumatic. Oral cavity moist, pink tongue. EYES: No pallor is present, no icterus. PERRLA. NECK: Supple, no JVD, no carotid bruit. Trach site is clear. CHEST: Bilateral breath sounds. Occasional crackles. HEART: S1, S2 within normal limits. Regular rhythm. No murmur, no gallop. ABDOMEN: Soft, nontender, and nondistended. Bowel sounds present. G-tube site clear. EXTREMITIES: No cyanosis, no clubbing, no edema. NEUROLOGIC: Unresponsive. BACK: Necrotic sacrococygeal ulcer. LABORATORY DATA: Current lab shows WBC count is 21,300, hemoglobin 8.8, hematocrit 27.6, platelets are 253,000, neutrophil 86%. Sodium is 142, potassium 3.7, chloride 106, bicarbonate is 25, BUN is 55, creatinine 2.7, and glucose is 87. Blood culture 2 sets are negative so far. C diff PCR is negative. Chest x-ray showed no active disease. IMPRESSION: 1. Septic shock, improving. r/o Bacteremia. 2. Pneumonia 3. Respiratory failure, on ventilator. 4. History of pneumonia. 5. History of Karmen infection. 6. History of Clostridium difficile colitis recently. 7. Cerebrovascular accident. 8. Ventilator-dependent respiratory failure. 9. Benign prostatic hypertrophy. 10. Hyperlipidemia. 11. Decubitus sacral large necrotic ulcer, unstageable. RECOMMENDATIONS/PLAN: Continue vancomycin IV, vancomycin p.o. and Zosyn. Follow up the sepsis workup. Thank you, Dr. Lemos for involving me in taking care of this patient. JOB# [id number] [facility]
[2019-02-27] MEDS: Budesonide 0.5 Mg/2 mL Ud HHN SCH ×2 (07:07→18:10)
[2019-02-27 08:12] LABS: PaCO2 35.6 mmHg (35.0-45.0); pH 7.402 (7.35-7.45)
[2019-02-27 08:13] LABS: PaO2 125.9 mmHg (80.0-100.0); sO2c 98.5 % (92.0-100.0)
--- NOTE | 2019-02-27 08:31 | Diagnostic Imaging Report ---
Exam: Portable chest x-ray HISTORY: Shortness of breath. Prior exam: 02/26/2019 Findings: Portable examination of the chest was reviewed and compared to the prior study the early demonstrates unchanged appearance of the mild bilateral interstitial infiltrates with superimposed small right pleural effusion. Tubes and lines unchanged position. Bony thorax is intact. The heart is not enlarged. IMPRESSION: Mild bilateral interstitial infiltrates, small right pleural effusion versus pleural thickening. Follow-up exam is recommended.
[2019-02-27] MEDS: Polyvinyl Alcohol Ophth Soln 15 mL Bottle EACH EYE SCH ×2 (09:09→16:17)
[2019-02-27] MEDS: Venelex 60gm Tube TP SCH ×2 (09:09→16:17)
[2019-02-27] MEDS: Chlorhexidine Gluconate 0.12% 15mL Mouthwash MM SCH ×2 (09:09→19:23)
[2019-02-27] MEDS: Lactobacillus Rhamnosus GG 15 Billion CFU CAP.SPRINK PO SCH (09:09)
[2019-02-27] MEDS: Pantoprazole 40 mg/Packet GT SCH (09:09)
[2019-02-27] MEDS: Apixaban 2.5 MG TABLET PO SCH ×2 (09:10→20:34)
[2019-02-27] MEDS: Insulin Glargine 100 units/ml 10ml Vial SUBQ SCH ×2 (09:11→20:42)
[2019-02-27] MEDS: Vancomycin HCL 250 mg /10mL UDC PO SCH ×4 (09:11→20:38)
[2019-02-27 10:41] LABS: ALB/GLOB RATIO 0.8 (1.0-1.8); ALKALINE PHOSPHATASE 113 U/L (34-104); ANION GAP 21.9 (7.0-16.0); BILIRUBIN,TOTAL 0.5 mg/dL (0.3-1.0); BUN - UREA NITROGEN 71 mg/dL (7-25); CALCIUM SERUM 9.4 mg/dL (8.6-10.3); CARBON DIOXIDE 19.9 mEq/L (21.0-31.0); CHLORIDE 103 mEq/L (98-107); POTASSIUM SERUM 3.8 mEq/L (3.5-5.1); SGOT 17 U/L (13-39); SGPT/ALT 22 U/L (7-52); SODIUM SERUM 141 mEq/L (136-145); TOTAL PROTEIN,SERUM 6.8 gm/dL (6.0-8.3)
[2019-02-27 10:43] LABS: CREATININE - SERUM 3.7 mg/dL (0.7-1.3); GLUCOSE 195 mg/dL (70-105)
[2019-02-27] MEDS ORDERED: Heparin Sod 5,000Units/ML 5,000 UNITS/ML VIAL HD ONE (11:58)
--- NOTE | 2019-02-27 17:33 | Consultation ---
DATE OF CONSULTATION: 02/26/2019 The patient of Mitch Canelo Nevarez HISTORY OF PRESENT ILLNESS: This is a 73-year-old male patient with a known history of respiratory failure with tracheostomy plus having dialysis where the patient became hypotensive. Following this, the patient was transferred to [facility]. The patient is in septic shock, hypotension on Levophed. Cardiac consult is requested. The patient also had supraventricular tachycardia. PAST MEDICAL HISTORY: Chronic respiratory failure, on ventilator with tracheostomy, diabetes mellitus type 2, C. diff colitis, atrial fibrillation, seizure disorder, CVA with late effect, dementia, BPH, diabetic CKD stage 5; end-stage renal disease on dialysis, dysphagia with PEG placement, protein-calorie malnutrition. FAMILY HISTORY: Unremarkable. SOCIAL HISTORY: No history of smoking, alcohol abuse. ALLERGIES: None. PHYSICAL EXAMINATION: VITAL SIGNS: Blood pressure 90 systolic on Levophed, pulse 150, respirations on ventilator. HEAD: Normocephalic. No lumps or bumps. EYES: Pupils equal, reactive to light. Fundi show AV nicking, sclerae white, conjunctivae pink. NECK: Carotid 2+. Normal upstroke. JVD flat. Thyroid not palpable. Lymph nodes not palpable. CHEST: Shows increased AP diameter. No kyphosis, scoliosis. LUNGS: Bilateral bronchovesicular breath sounds. Occasional wheeze. No rales. HEART: PMI fifth intercostal space with lateral to midclavicular line. S1, S2, S3, S4, soft systolic murmur. ABDOMEN: Soft. Liver, spleen not palpable. No organomegaly. Bowel sounds active. NEUROLOGIC: No focal neurological deficit. EXTREMITIES: Peripheral pulses 2+. No pedal edema. CLINICAL IMPRESSION: Septic shock, hypotension, acute respiratory failure on chronic respiratory failure with ventilator and tracheostomy, aspiration pneumonia, pseudomonas with extended-spectrum beta-lactamases, supraventricular tachycardia, atrial fibrillation, Clostridium difficile colitis, seizure disorder, cerebrovascular accident with late effect, dementia, benign prostatic hypertrophy, diabetes mellitus type 2, diabetic chronic kidney disease stage 5; end-stage renal disease on dialysis, sacral decubitus ulcer, iron deficiency anemia, dysphagia with PEG placement, protein-calorie malnutrition. PLAN: The patient to continue on Levophed, IV antibiotic, IV fluids, dialysis with ultrafiltration. JOB# [id number]
[2019-02-28] MEDS: Piperacillin/Tazobact 2.25 gm in 0.9% NS 50 ML IV SCH ×4 (01:21→20:35)
--- NOTE | 2019-02-28 01:59 | Progress Notes ---
DATE: 02/27/2019 PULMONARY PROGRESS NOTE PROBLEM LIST: 1. Acute on chronic respiratory failure. 2. Possibly sepsis. 3. History of renal failure, on hemodialysis. 4. Chronic vent-dependent and some haziness in the right side. SYMPTOMS: Nil. The patient just finished dialysis, now he is tachycardic 141/50. Apparently, his beta coco was hold because of the low blood pressure. No respiratory distress, etc. PHYSICAL EXAMINATION: VITAL SIGNS: The patient's recorded BP 103/70, heart rate is 140-150. NECK: Neck veins were visualized. CHEST: Shows occasional rhonchi with diminished air entry. HEART: Tachycardic. ABDOMEN: Soft, nontender. LABORATORY DATA: White count has gotten better now is 17,000, hemoglobin 8.1 and ABG, pO2 is 125 on 30% with SIMV mode and the patient's chest x-ray shows generalized haziness in the right side, but otherwise unremarkable. ASSESSMENT: The patient clinically overall stable and now has tachyarrhythmia, presumably for combination of holding beta coco including dialysis. PLANS AND SUGGESTIONS: We discussed with the nursing staff give Lopressor, metoprolol now and see how he does. Continue rest of other treatment, etc., and go from there. JOB# [id number]
[2019-02-28] MEDS: Albuterol/Ipratropium Neb 3 ML AERS HHN SCH ×6 (02:22→23:30)
[2019-02-28] MEDS: INSULIN LISPRO SLIDING SCALE 100 UNITS/ML UNIT SUBQ SCH ×3 (05:09→17:53)
[2019-02-28 05:44] LABS: ALB/GLOB RATIO 0.8 (1.0-1.8); ALBUMIN 2.7 gm/dL (4.2-5.5); ALKALINE PHOSPHATASE 102 U/L (34-104); ANION GAP 11.2 (7.0-16.0); BILIRUBIN,TOTAL 0.5 mg/dL (0.3-1.0); BUN - UREA NITROGEN 40 mg/dL (7-25); CALCIUM SERUM 8.7 mg/dL (8.6-10.3); CARBON DIOXIDE 30.9 mEq/L (21.0-31.0); CHLORIDE 96 mEq/L (98-107); CREATININE - SERUM 2.1 mg/dL (0.7-1.3); GLUCOSE 131 mg/dL (70-105); POTASSIUM SERUM 3.1 mEq/L (3.5-5.1); SGOT 16 U/L (13-39); SGPT/ALT 19 U/L (7-52); SODIUM SERUM 135 mEq/L (136-145)
--- NOTE | 2019-02-28 06:36 | General Progress Note ---
Subjective - Review of Systems Service Date: 02/28/19 Subjective: Patient was seen and examined. Awake, alert, responsive to verbal stimuli. no acute distress. Opens eyes. Objective - Results Result Diagrams: 02/27/19 04:45 02/28/19 04:50 Recent Labs: Laboratory Last Values WBC 17.6 Th/cmm (4.8-10.8) H 02/27/19 04:45 RBC 2.66 Mil/cmm (3.80-5.80) L 02/27/19 04:45 Hgb 8.1 gm/dL (12-16) L 02/27/19 04:45 Hct 24.8 % (41.0-60) L 02/27/19 04:45 MCV 93.3 fl (80-99) 02/27/19 04:45 MCH 30.5 pg (27.0-31.0) 02/27/19 04:45 MCHC Differential 32.7 pg (28.0-36.0) 02/27/19 04:45 RDW 17.9 % (11.5-20.0) 02/27/19 04:45 Plt Count 241 Th/cmm (150-400) 02/27/19 04:45 MPV 8.7 fl 02/27/19 04:45 Add Manual Diff YES 02/26/19 04:45 Neutrophils % 79.4 % (40.0-80.0) 02/27/19 04:45 Band Neutrophils % 0 % (0-10) 02/26/19 04:45 Lymphocytes % 10.2 % (20.0-50.0) L 02/27/19 04:45 Monocytes % 7.9 % (2.0-10.0) 02/27/19 04:45 Eosinophils % 2.2 % (0.0-5.0) 02/27/19 04:45 Basophils % 0.3 % (0.0-2.0) 02/27/19 04:45 Neutrophils (Manual) 86 % (40-80) H 02/26/19 04:45 Lymphocytes 7 % (20-50) L 02/26/19 04:45 Monocytes 5 % (2-10) 02/26/19 04:45 Eosinophils 2 % (0-5) 02/26/19 04:45 Basophils 0 % (0-3) 02/26/19 04:45 Platelet Estimate ADEQUATE (NORMAL) 02/26/19 04:45 PT 11.0 SECONDS (9.5-11.5) 02/26/19 04:45 INR 1.06 (0.5-1.4) 02/26/19 04:45 Specimen Source Arterial 02/27/19 07:57 Sample Site LB 02/27/19 07:57 pH 7.402 (7.35-7.45) 02/27/19 07:57 pCO2 35.6 mmHg (35.0-45.0) 02/27/19 07:57 pO2 125.9 mmHg (80.0-100.0) H 02/27/19 07:57 HCO3 21.7 mEq/L (20.0-26.0) 02/27/19 07:57 Base Excess -2.4 mEq/L (-3.0-3.0) 02/27/19 07:57 O2 Saturation 98.5 % (92.0-100.0) 02/27/19 07:57 Yeison Test N/A 02/27/19 07:57 Vent Rate 10 02/27/19 07:57 Inspired O2 30 02/27/19 07:57 Tidal Volume 450 02/27/19 07:57 PEEP 5 02/27/19 07:57 Pressure (ins/psv/peep) 10 02/27/19 07:57 Critical Value DM 02/27/19 07:57 Sodium 135 mEq/L (136-145) L 02/28/19 04:50 Potassium 3.1 mEq/L (3.5-5.1) L 02/28/19 04:50 Chloride 96 mEq/L (98-107) L 02/28/19 04:50 Carbon Dioxide 30.9 mEq/L (21.0-31.0) 02/28/19 04:50 Anion Gap 11.2 (7.0-16.0) 02/28/19 04:50 BUN 40 mg/dL (7-25) H 02/28/19 04:50 Creatinine 2.1 mg/dL (0.7-1.3) H 02/28/19 04:50 Est GFR ( Amer) TNP 02/28/19 04:50 Est GFR (Non-Af Amer) TNP 02/28/19 04:50 BUN/Creatinine Ratio 19.0 02/28/19 04:50 Glucose 131 mg/dL (70-105) H 02/28/19 04:50 POC Glucose 107 MG/DL (70 - 105) H 02/28/19 05:06 Whole Bld Lactic Acid 0.69 mmol/L (0.60-1.99) 02/26/19 06:05 Calcium 8.7 mg/dL (8.6-10.3) 02/28/19 04:50 Magnesium 2.8 mg/dL (1.9-2.7) H 02/27/19 04:45 Total Bilirubin 0.5 mg/dL (0.3-1.0) 02/28/19 04:50 Direct Bilirubin 0.16 mg/dL (0.0-0.2) 02/27/19 04:45 AST 16 U/L (13-39) 02/28/19 04:50 ALT 19 U/L (7-52) 02/28/19 04:50 Alkaline Phosphatase 102 U/L (34-104) 02/28/19 04:50 Ammonia 53 umol/L (16-53) 02/27/19 04:45 Total Protein 6.0 gm/dL (6.0-8.3) 02/28/19 04:50 Albumin 2.7 gm/dL (4.2-5.5) L 02/28/19 04:50 Globulin 3.3 gm/dL 02/28/19 04:50 Albumin/Globulin Ratio 0.8 (1.0-1.8) L 02/28/19 04:50 TSH 2.68 uIU/ml (0.34-5.60) 02/27/19 04:45 Stool Occult Blood NEGATIVE (NEGATIVE) 02/28/19 03:00 Random Vancomycin 17.7 ug/mL (5.0-40.0) 02/28/19 04:50 - Physical Exam Vitals and I&O: Vital Signs Temp 98.8 F 02/28/19 04:00 Pulse 99 02/28/19 06:00 Resp 18 02/28/19 06:00 BP 133/58 02/28/19 06:00 Pulse Ox 100 02/28/19 06:00 Intake & Output 02/27/19 02/27/19 02/28/19 06:59 18:59 06:59 Intake Total 580 762 1848 Output Total 100 500 Balance 680 100 930 Weight (lbs) 68.577 kg 64.864 kg Intake: Intake, IV Amount 100 100 50 Piperacillin Sodium/ 100 100 50 Tazobact 2.25 gm In Sodium Chloride 0.9% 50 ml @ 100 mls/hr IV Q6H [facility] Rx#:[id number] Oral 0 Tube Feeding 480 960 Other 200 420 Output: Urine 0 Stool 100 500 Other: Stool Characteristics Liquid Liquid Liquid Brown Brown Brown [facility] Active Medications: Current Medications Acetaminophen (Tylenol 650mg/20.3ml Suspension) 650 mg GT Q6H PRN PRN Reason: Fever >101 Stop: 04/27/19 01:35 Last Admin: 02/26/19 23:38 Dose: 650 mg Acetaminophen (Tylenol) 650 mg GT Q4HR PRN PRN Reason: Pain or Fever >101 Stop: 04/27/19 05:39 Last Admin: 02/26/19 17:54 Dose: 650 mg Albuterol/Ipratropium (Duoneb Neb) 3 ml HHN Q2HRT PRN PRN Reason: Shortness of Breath Stop: 04/27/19 05:39 Albuterol/Ipratropium (Duoneb Neb) 3 ml HHN Q4HRT [facility] Stop: 04/27/19 14:59 Last Admin: 02/28/19 02:22 Dose: 3 ml Amlodipine Besylate (Norvasc) 5 mg GT DAILY [facility] Stop: 04/27/19 08:59 Last Admin: 02/27/19 09:10 Dose: Not Given Artificial Tears (Artificial Tears Ophth Soln) 1 drop EACH EYE BID [facility] Stop: 04/27/19 08:59 Last Admin: 02/27/19 16:17 Dose: 1 drop Ascorbic Acid (Vitamin C) 500 mg GT DAILY [facility] Stop: 04/27/19 08:59 Last Admin: 02/27/19 09:10 Dose: 500 mg Atorvastatin Calcium (Lipitor) 40 mg GT HS [facility] Stop: 04/27/19 20:59 Last Admin: 02/27/19 20:30 Dose: 40 mg Budesonide (Pulmicort) 0.5 mg HHN BIDRT [facility] Stop: 04/27/19 18:59 Last Admin: 02/27/19 18:10 Dose: 0.5 mg Frederick Oil/Stateless Balsam/Trypsin (Venelex) 1 appl TP BID [facility] Stop: 04/27/19 09:14 Last Admin: 02/27/19 16:17 Dose: 1 appl Chlorhexidine Gluconate (Peridex) 15 ml MM 0800,1999 [facility] Stop: 04/27/19 07:59 Last Admin: 02/27/19 19:23 Dose: 15 ml Dextrose (D50w) 50 ml IVP PRN PRN PRN Reason: Blood Glucose less than 70 Stop: 04/27/19 00:25 Dextrose (Glutose 40%) 18.75 gm PO PRN PRN PRN Reason: Blood Glucose less than 70 Stop: 04/27/19 00:25 Epoetin [place] (Epogen) 6,000 units SUBQ MoWeFr [facility] Stop: 04/27/19 14:59 Last Admin: 02/26/19 18:00 Dose: Not Given Folic Acid (Folate) 1 mg GT DAILY [facility] Stop: 04/27/19 08:59 Last Admin: 02/27/19 09:09 Dose: 1 mg Glucagon (Glucagen) 1 mg IM PRN PRN PRN Reason: Blood Glucose less than 70 Stop: 04/27/19 00:25 Norepinephrine Bitartrate 4 mg (/ Dextrose) 254 mls @ 0 mls/hr IV TITR PRN; Protocol PRN Reason: BP MAINTENANCE (PER PROTOCOL) Stop: 04/27/19 00:34 Last Titration: 02/26/19 07:39 Dose: 0 mcg/min, 0 mls/hr Piperacillin Sod/Tazobactam (Sod 2.25 gm/ Sodium Chloride) 50 mls @ 100 mls/hr IV Q6H [facility] Stop: 04/27/19 07:59 Last Admin: 02/28/19 01:21 Dose: 100 mls/hr Insulin Glargine (Lantus Insulin) 20 units SUBQ Q12HR [facility] Stop: 04/27/19 20:59 Last Admin: 02/27/19 20:42 Dose: 20 units Insulin Human Lispro (Humalog Insulin Sliding Scale) 0 units SUBQ Q6HR [facility]; Protocol Stop: 04/27/19 05:59 Last Admin: 02/28/19 05:09 Dose: Not Given Lactobacillus Rhamnosus (Culturelle 15b) 1 each PO DAILY AMANDA Stop: 04/28/19 08:59 Last Admin: 02/27/19 09:09 Dose: 1 each Lactulose (Cephulac) 30 gm GT DAILY PRN PRN Reason: Constipation Levetiracetam (Keppra) 750 mg PO Q12H [facility] Stop: 04/27/19 08:59 Last Admin: 02/27/19 20:32 Dose: 750 mg Magnesium Oxide (Mag-Oxide) 400 mg GT DAILY [facility] Stop: 04/27/19 08:59 Last Admin: 02/27/19 09:10 Dose: 400 mg Metoclopramide HCl (Reglan) 5 mg GT Q6H [facility] Stop: 04/27/19 07:59 Last Admin: 02/28/19 01:20 Dose: 5 mg Metoprolol Tartrate (Lopressor) 25 mg GT BID [facility]ANDA Stop: 04/27/19 08:59 Last Admin: 02/27/19 16:16 Dose: 25 mg Miscellaneous (Zosyn Iv Per Pharmacy) 1 ea PRN PRN PRN Reason: PROTOCOL Stop: 04/26/19 21:23 Miscellaneous (Vancomycin Iv Per Pharmacy) 1 ea PRN PRN PRN Reason: PROTOCOL Stop: 04/27/19 06:05 Miscellaneous (Probiotic Screen) 1 ea PRN PRN PRN Reason: PROTOCOL Stop: 04/27/19 13:03 Miscellaneous (Vte Chemical Prophylaxis Screen/ Admission) 1 ea PRN PRN PRN Reason: PROTOCOL Stop: 04/27/19 13:10 Pantoprazole Sodium (Protonix) 40 mg GT DAILY AMANDA Stop: 04/27/19 08:59 Last Admin: 02/27/19 09:09 Dose: 40 mg Vancomycin HCl (Vancomycin Oral) 250 mg PO QID [facility]ANDA Stop: 04/28/19 08:59 Last Admin: 02/27/19 20:38 Dose: 250 mg General: Alert, No acute distress Neck: Supple, Other (s/p tracheostomy) Cardiovascular: Other (irregularly irregular) Lungs: Clear to auscultation Abdomen: Bowel sounds, Soft Extremities: Edema, no Clubbing, no Cyanosis - Procedures Procedures: Procedures Procedure Code Date RESPIRATORY VENTILATION, LESS THAN 24 CONSECUTIVE HOURS [id number] 02/25/19 Assessment/Plan - Assessment Assessment: AMS encephalopathy leukoocytosis anemia aspiration PNA Acute on Chronic Respiratory Failure s/p tracheostomy sepsis septic shock PNA +Pseudomonas and ESBL Klebsiella and Influenzae B h/o C. Difficile h/o Karmen albicans Chronic Atrial Fibrillation Seizure d/o CVA Functional Quadreplegia Dementia BPH HTN DM Hyperlipidemia ESRD on HD Sacral Decubitus - Plan Plan: repeat labwork CBC, CMP, Lactic Acid ID consult pulmonary consult cardiology consult renal consult surgical consult CXR tomorrow continue Vanco, Zosyn IV Nutritional Asmnt/Malnutr-PDOC - Dietary Evaluation Malnutrition Findings (Please click <Entered> for more info): Nutritional Asmnt/Malnutrition Start: 02/26/19 16: 42 Text: Status: Complete Freq: Protocol: Document 02/26/19 16:42 [email or web address] (Rec: 02/26/19 17:14 [email or web address] [id number]) Nutritional Asmnt/Malnutrition Patient General Information Nutritional Screening High Risk Consult Diagnosis AMS after HD, PNA, septic shock, hypotension Pertinent Medical Hx/Surgical Hx ESRD on HD, CVA, functional quadriplegia, DM, HTN, HLD, dysphagia s/p GT, sacral decubitus, hx of C.diff Subjective Information Pt on pressor and vent support , on trach, Nepro at 40 ml/hr upon visit, tolerating TF with no GRV per RN, +diarrhea, rectal tube placed. Pt on multiple abx. +unstageable sacrum, recommended TF meets 95% RDI. No family at bedside, unable to assess nutrition intake hx or wt hx. RN made aware of recs, states verbal order for 1500ml fluid restriction. Pending HD 02/27. Wt obtained by bedscale. Will reassess kcal needs once pt off vent support. Current Diet Order/ Nutrition Support Nepro at 40ml/hr x 20 hours= 800ml, 1440kcal, 65g protein, 581ml free water Patient / S.O Not Indicated Pertinent Medications vitamin C 500mg, Lipitor, folic acid, Levemir, Humalog, magnesium oxide, Reglan Q6h, norepinephrine, IV abx, Protonix, lactulose PRN Pertinent Labs (02/26) BUN 55, Cr 2.7, Glu 87, Alk Phos 106, Alb 3.3 Nutritional Hx/Data Height 1.68 m Height (Calculated Centimeters) 167.6 Current Weight (lbs) 68.492 kg Weight (Calculated Kilograms) 68.5 Weight (Calculated Grams) 47258.4 Romeo Body Weight 142 lb Body Mass Index (BMI) 24.3 Weight Status Approriate GI Symptoms GI Symptoms Diarrhea Last BM 02/26 Difficult in: Swallowing Skin Integrity/Comment: unstageable sacrum Estimated Nutritional Goals BEE in Kcals: Adj wt of IBW Calories/Kcals/Kg 6001-9833 kcal Kcals Calculated 25-30 kcal/kg Protein: Adj wt of IBW Protein g/k-91g Protein Calculated 1.1-1.4 g/kg Fluid: ml 1000ml+UOP (dialysis) Nutritional Problem 2. Problem Problem Increased nutrient needs Etiology wound healing, ESRD Signs/Symptoms: unstageable sacrum, on HD 1. Problem Problem Inadequate enteral infusion Etiology new admit Signs/Symptoms: Nepro at 40ml/hr x 20 hours meets 89% kcal, 90% protein needs (suboptimal). Intervention/Recommendation Comments 1. Increase Nepro to 45 ml/hr goal rate x 20 hours= 900ml, 1620kcal, 73g protein, 654ml free water; meets 100% estimated kcal/protein needs 2. Consider water flush 100ml Q6h per MD 3. F/U as high risk in 2-3 days Expected Outcomes/Goals Expected Outcomes/Goals 1. Pt to meet at least 90% of nutritional needs via nutrition support with tolerance 2. Monitor TF rate, tolerance, wt, skin integrity and labs Mera Kaplan RD
[2019-02-28] MEDS: Budesonide 0.5 Mg/2 mL Ud HHN SCH ×2 (07:38→18:51)
[2019-02-28] MEDS: Chlorhexidine Gluconate 0.12% 15mL Mouthwash MM SCH ×2 (08:03→20:44)
[2019-02-28] MEDS: Lactobacillus Rhamnosus GG 15 Billion CFU CAP.SPRINK PO SCH (08:04)
[2019-02-28] MEDS: Pantoprazole 40 mg/Packet GT SCH (08:04)
[2019-02-28] MEDS: Apixaban 2.5 MG TABLET PO SCH ×2 (08:05→20:34)
[2019-02-28] MEDS: Venelex 60gm Tube TP SCH ×2 (08:06→16:31)
[2019-02-28] MEDS: Polyvinyl Alcohol Ophth Soln 15 mL Bottle EACH EYE SCH ×2 (08:08→16:30)
[2019-02-28] MEDS: Insulin Glargine 100 units/ml 10ml Vial SUBQ SCH ×2 (08:23→20:43)
[2019-02-28] MEDS: Vancomycin HCL 250 mg /10mL UDC PO SCH ×4 (10:05→20:35)
--- NOTE | 2019-02-28 10:28 | Consultation ---
DATE OF CONSULTATION: 02/27/2019 TIME: 3:41 p.m. HISTORY OF PRESENT ILLNESS: The patient is a 73-year-old male, encephalopathic patient, admitted for altered level of consciousness after dialysis. Paramedics were called. Accu-Chek was 124. The patient subsequently admitted to the hospital with aspiration pneumonia, sepsis, septic shock, renal failure, on dialysis; vent dependent; leukocytosis. The patient has a sacrococcyx decubitus wound, likely stage 1-2 and surgical evaluation requested. The patient is unable to give more of a history. ALLERGIES: No known drug allergies. PHYSICAL EXAMINATION: VITAL SIGNS: 68 kilograms. BMI of 24.4. 99.1 temperature, has been afebrile mostly with intermittent episodes of fever initially. No pressors at this time, but with some tachycardia, encephalopathic, does not follow commands. NECK: Has a trach, has a right IJ tunneled hemodialysis PermCath, is anuric. CHEST: Crackles at the base bilaterally. CARDIOVASCULAR: Regular rate. ABDOMEN: Soft, nontender, nondistended. G-tube is in place, has a rectal tube on the sacrococcyx decubitus wound, is likely stage 1 to stage 2 areas. There is some black eschar, but no fluctuance or obvious gangrenous tissue or infection that requires debridement. LABORATORY DATA: White blood cell count 17.6, H and H are 8 and 24.8, platelet count 241. PO2 is 125.9. Rest of the ABG is otherwise unremarkable. CO2 is 19.9, BUN and creatinine 71 and 3.7, glucose 195. Alkaline phosphatase is high at 113, but total bilirubin, AST and ALT are normal. Albumin 3.0. The patient is currently on Tylenol, Norvasc, vancomycin, Zosyn. A chest x-ray done earlier today showed mild bilateral interstitial infiltrates. Small right pleural effusion versus pleural thickening. Followup exam is recommended. IMPRESSION AND PLAN: A 73-year-old male with multiple medical problems, respiratory failure, renal failure, dysphagia with G-tube, bedridden state, encephalopathic, persistent vegetative state. The patient has a sacrococcyx decubitus wound, which likely has a stage 1 to stage 2 areas. No debridement required at this time, unlikely that the leukocytosis, sepsis is related to the sacrococcyx decubitus wound, more likely pulmonary related with infiltrates noted on chest x-ray. Continue IV antibiotics and local wound care to the sacrococcyx area. Should there be any change in the wound, certainly can contact me. We will follow the patient intermittently throughout this hospitalization. [facility]# [id number]
[2019-02-28 11:15] LABS: RED BLOOD COUNT 2.36 Mil/cmm (3.80-5.80)
[2019-02-28 11:16] LABS: % EOSINOPHILS 4.2 % (0.0-5.0); % LYMPHOCYTES 10.4 % (20.0-50.0); % MONOCYTES 7.9 % (2.0-10.0); % NEUTROPHILS 77.2 % (40.0-80.0); MEAN CELL VOLUME 98.5 fl (80-99); MEAN CORPUSCULAR HEMOGLOBIN 31.5 pg (27.0-31.0); MEAN CORPUSCULAR HGB CONC 31.9 pg (28.0-36.0); MEAN PLATELET VOLUME 9.2 fl; PLATELET COUNT 193 Th/cmm (150-400); RED CELL DISTRIBUTION WIDTH 18.7 % (11.5-20.0)
[2019-02-28 11:17] LABS: % BASOPHILS 0.3 % (0.0-2.0); EOSINOPHILE ABSOLUTE 0.5 Th/cmm (0.1-0.4); LYMPHOCYTE ABSOLUTE 1.1 Th/cmm (1.5-3.0); MONOCYTE ABSOLUTE 0.9 Th/cmm (0.3-1.0); NEUTROPHILE ABSOLUTE 8.5 Th/cmm (1.8-8.0)
[2019-02-28 11:18] LABS: HEMOGLOBIN 7.4 gm/dL (12-16)
[2019-02-28 11:19] LABS: HEMATOCRIT 23.2 % (41.0-60)
--- NOTE | 2019-02-28 13:44 | General Progress Note ---
Subjective - Review of Systems Service Date: 02/28/19 Events since last encounter: off vasopressor dialyzed yesterday. unable to do much UF. Subjective: no new event Objective - Results Result Diagrams: 02/28/19 04:50 02/28/19 04:50 Recent Labs: Laboratory Last Values WBC 11.0 Th/cmm (4.8-10.8) H 02/28/19 04:50 RBC 2.36 Mil/cmm (3.80-5.80) L 02/28/19 04:50 Hgb 7.4 gm/dL (12-16) L* 02/28/19 04:50 Hct 23.2 % (41.0-60) L 02/28/19 04:50 MCV 98.5 fl (80-99) 02/28/19 04:50 MCH 31.5 pg (27.0-31.0) H 02/28/19 04:50 MCHC Differential 31.9 pg (28.0-36.0) 02/28/19 04:50 RDW 18.7 % (11.5-20.0) 02/28/19 04:50 Plt Count 193 Th/cmm (150-400) 02/28/19 04:50 MPV 9.2 fl 02/28/19 04:50 Add Manual Diff YES 02/26/19 04:45 Neutrophils % 77.2 % (40.0-80.0) 02/28/19 04:50 Band Neutrophils % 0 % (0-10) 02/26/19 04:45 Lymphocytes % 10.4 % (20.0-50.0) L 02/28/19 04:50 Monocytes % 7.9 % (2.0-10.0) 02/28/19 04:50 Eosinophils % 4.2 % (0.0-5.0) 02/28/19 04:50 Basophils % 0.3 % (0.0-2.0) 02/28/19 04:50 Neutrophils (Manual) 86 % (40-80) H 02/26/19 04:45 Lymphocytes 7 % (20-50) L 02/26/19 04:45 Monocytes 5 % (2-10) 02/26/19 04:45 Eosinophils 2 % (0-5) 02/26/19 04:45 Basophils 0 % (0-3) 02/26/19 04:45 Platelet Estimate ADEQUATE (NORMAL) 02/26/19 04:45 PT 11.0 SECONDS (9.5-11.5) 02/26/19 04:45 INR 1.06 (0.5-1.4) 02/26/19 04:45 Specimen Source Arterial 02/27/19 07:57 Sample Site LB 02/27/19 07:57 pH 7.402 (7.35-7.45) 02/27/19 07:57 pCO2 35.6 mmHg (35.0-45.0) 02/27/19 07:57 pO2 125.9 mmHg (80.0-100.0) H 02/27/19 07:57 HCO3 21.7 mEq/L (20.0-26.0) 02/27/19 07:57 Base Excess -2.4 mEq/L (-3.0-3.0) 02/27/19 07:57 O2 Saturation 98.5 % (92.0-100.0) 02/27/19 07:57 Yeison Test N/A 02/27/19 07:57 Vent Rate 10 02/27/19 07:57 Inspired O2 30 02/27/19 07:57 Tidal Volume 450 02/27/19 07:57 PEEP 5 02/27/19 07:57 Pressure (ins/psv/peep) 10 02/27/19 07:57 Critical Value DM 02/27/19 07:57 Sodium 135 mEq/L (136-145) L 02/28/19 04:50 Potassium 3.1 mEq/L (3.5-5.1) L 02/28/19 04:50 Chloride 96 mEq/L (98-107) L 02/28/19 04:50 Carbon Dioxide 30.9 mEq/L (21.0-31.0) 02/28/19 04:50 Anion Gap 11.2 (7.0-16.0) 02/28/19 04:50 BUN 40 mg/dL (7-25) H 02/28/19 04:50 Creatinine 2.1 mg/dL (0.7-1.3) H 02/28/19 04:50 Est GFR ( Amer) TNP 02/28/19 04:50 Est GFR (Non-Af Amer) TNP 02/28/19 04:50 BUN/Creatinine Ratio 19.0 02/28/19 04:50 Glucose 131 mg/dL (70-105) H 02/28/19 04:50 POC Glucose 143 MG/DL (70 - 105) H 02/28/19 12:22 Whole Bld Lactic Acid 0.69 mmol/L (0.60-1.99) 02/26/19 06:05 Calcium 8.7 mg/dL (8.6-10.3) 02/28/19 04:50 Magnesium 2.1 mg/dL (1.9-2.7) 02/28/19 04:50 Total Bilirubin 0.5 mg/dL (0.3-1.0) 02/28/19 04:50 Direct Bilirubin 0.16 mg/dL (0.0-0.2) 02/27/19 04:45 AST 16 U/L (13-39) 02/28/19 04:50 ALT 19 U/L (7-52) 02/28/19 04:50 Alkaline Phosphatase 102 U/L (34-104) 02/28/19 04:50 Ammonia 53 umol/L (16-53) 02/27/19 04:45 Total Protein 6.0 gm/dL (6.0-8.3) 02/28/19 04:50 Albumin 2.7 gm/dL (4.2-5.5) L 02/28/19 04:50 Globulin 3.3 gm/dL 02/28/19 04:50 Albumin/Globulin Ratio 0.8 (1.0-1.8) L 02/28/19 04:50 TSH 2.68 uIU/ml (0.34-5.60) 02/27/19 04:45 Stool Occult Blood NEGATIVE (NEGATIVE) 02/28/19 03:00 Random Vancomycin 17.7 ug/mL (5.0-40.0) 02/28/19 04:50 - Physical Exam Vitals and I&O: Vital Signs Temp 97.9 F 02/28/19 13:00 Pulse 86 02/28/19 13:11 Resp 16 02/28/19 13:00 BP 128/69 02/28/19 13:00 Pulse Ox 100 02/28/19 13:11 Intake & Output 02/27/19 02/28/19 02/28/19 18:59 06:59 18:59 Intake Total 100 1480 Output Total 500 Balance 100 980 Weight (lbs) 64.864 kg Intake: Intake, IV Amount 100 100 Piperacillin Sodium/ 100 100 Tazobact 2.25 gm In Sodium Chloride 0.9% 50 ml @ 100 mls/hr IV Q6H [facility] Rx#:[id number] Oral 0 Tube Feeding 960 Other 420 Output: Urine 0 Stool 500 Other: Stool Characteristics Liquid Liquid Liquid Brown Brown Brown Weight Source Bedscale Active Medications: Current Medications Acetaminophen (Tylenol 650mg/20.3ml Suspension) 650 mg GT Q6H PRN PRN Reason: Fever >101 Stop: 04/27/19 01:35 Last Admin: 02/26/19 23:38 Dose: 650 mg Acetaminophen (Tylenol) 650 mg GT Q4HR PRN PRN Reason: Pain or Fever >101 Stop: 04/27/19 05:39 Last Admin: 02/26/19 17:54 Dose: 650 mg Albuterol/Ipratropium (Duoneb Neb) 3 ml HHN Q2HRT PRN PRN Reason: Shortness of Breath Stop: 04/27/19 05:39 Albuterol/Ipratropium (Duoneb Neb) 3 ml HHN Q4HRT [facility] Stop: 04/27/19 14:59 Last Admin: 02/28/19 11:20 Dose: 3 ml Amlodipine Besylate (Norvasc) 5 mg GT DAILY [facility] Stop: 04/27/19 08:59 Last Admin: 02/28/19 08:05 Dose: 5 mg Artificial Tears (Artificial Tears Ophth Soln) 1 drop EACH EYE BID [facility] Stop: 04/27/19 08:59 Last Admin: 02/28/19 08:08 Dose: 1 drop Ascorbic Acid (Vitamin C) 500 mg GT DAILY [facility] Stop: 04/27/19 08:59 Last Admin: 02/28/19 08:05 Dose: 500 mg Atorvastatin Calcium (Lipitor) 40 mg GT HS [facility] Stop: 04/27/19 20:59 Last Admin: 02/27/19 20:30 Dose: 40 mg Budesonide (Pulmicort) 0.5 mg HHN BIDRT [facility] Stop: 04/27/19 18:59 Last Admin: 02/28/19 07:38 Dose: 0.5 mg [place] Oil/[place] Balsam/Trypsin (Venelex) 1 appl TP BID [facility] Stop: 04/27/19 09:14 Last Admin: 02/28/19 08:06 Dose: 1 appl Chlorhexidine Gluconate (Peridex) 15 ml MM 0800,1999 [facility] Stop: 04/27/19 07:59 Last Admin: 02/28/19 08:03 Dose: 15 ml Dextrose (D50w) 50 ml IVP PRN PRN PRN Reason: Blood Glucose less than 70 Stop: 04/27/19 00:25 Dextrose (Glutose 40%) 18.75 gm PO PRN PRN PRN Reason: Blood Glucose less than 70 Stop: 04/27/19 00:25 Epoetin [place] (Epogen) 6,000 units SUBQ MoWeFr [facility] Stop: 04/27/19 14:59 Last Admin: 02/26/19 18:00 Dose: Not Given Folic Acid (Folate) 1 mg GT DAILY [facility] Stop: 04/27/19 08:59 Last Admin: 02/28/19 08:04 Dose: 1 mg Glucagon (Glucagen) 1 mg IM PRN PRN PRN Reason: Blood Glucose less than 70 Stop: 04/27/19 00:25 Norepinephrine Bitartrate 4 mg (/ Dextrose) 254 mls @ 0 mls/hr IV TITR PRN; Protocol PRN Reason: BP MAINTENANCE (PER PROTOCOL) Stop: 04/27/19 00:34 Last Titration: 02/26/19 07:39 Dose: 0 mcg/min, 0 mls/hr Piperacillin Sod/Tazobactam (Sod 2.25 gm/ Sodium Chloride) 50 mls @ 100 mls/hr IV Q6H [facility] Stop: 04/27/19 07:59 Last Admin: 02/28/19 08:03 Dose: 100 mls/hr Insulin Glargine (Lantus Insulin) 20 units SUBQ Q12HR [facility] Stop: 04/27/19 20:59 Last Admin: 02/28/19 08:23 Dose: 20 units Insulin Human Lispro (Humalog Insulin Sliding Scale) 0 units SUBQ Q6HR [facility]; Protocol Stop: 04/27/19 05:59 Last Admin: 02/28/19 13:34 Dose: Not Given Lactobacillus Rhamnosus (Culturelle 15b) 1 each PO DAILY [facility] Stop: 04/28/19 08:59 Last Admin: 02/28/19 08:04 Dose: 1 each Lactulose (Cephulac) 30 gm GT DAILY PRN PRN Reason: Constipation Levetiracetam (Keppra) 750 mg PO Q12H [facility] Stop: 04/27/19 08:59 Last Admin: 02/28/19 08:04 Dose: 750 mg Magnesium Oxide (Mag-Oxide) 400 mg GT DAILY [facility] Stop: 04/27/19 08:59 Last Admin: 02/28/19 08:04 Dose: 400 mg Metoclopramide HCl (Reglan) 5 mg GT Q6H [facility] Stop: 04/27/19 07:59 Last Admin: 02/28/19 08:22 Dose: 5 mg Metoprolol Tartrate (Lopressor) 25 mg GT BID [facility] Stop: 04/27/19 08:59 Last Admin: 02/28/19 08:05 Dose: 25 mg Miscellaneous (Zosyn Iv Per Pharmacy) 1 ea PRN PRN PRN Reason: PROTOCOL Stop: 04/26/19 21:23 Miscellaneous (Vancomycin Iv Per Pharmacy) 1 ea PRN PRN PRN Reason: PROTOCOL Stop: 04/27/19 06:05 Miscellaneous (Probiotic Screen) 1 ea PRN PRN PRN Reason: PROTOCOL Stop: 04/27/19 13:03 Miscellaneous (Vte Chemical Prophylaxis Screen/ Admission) 1 ea PRN PRN PRN Reason: PROTOCOL Stop: 04/27/19 13:10 Pantoprazole Sodium (Protonix) 40 mg GT DAILY [facility] Stop: 04/27/19 08:59 Last Admin: 02/28/19 08:04 Dose: 40 mg Vancomycin HCl (Vancomycin Oral) 250 mg PO QID [facility] Stop: 04/28/19 08:59 Last Admin: 02/28/19 13:35 Dose: Not Given General: Alert, No acute distress Neck: Supple, Other (s/p tracheostomy) Cardiovascular: Other (irregularly irregular) Lungs: Clear to auscultation Abdomen: Bowel sounds, Soft Extremities: Edema, no Clubbing, no Cyanosis - Procedures Procedures: Procedures Procedure Code Date RESPIRATORY VENTILATION, LESS THAN 24 CONSECUTIVE HOURS [id number] 02/25/19 Assessment/Plan - Assessment Assessment: ESRD/DIALYSIS STATUS ANEMIA ACUTE ON CHRONIC W ESRD VENT DEPENDENT RESPIRATORY FAILURE SEVERE SEPSIS HX CVA W CHRONIC ENCEPHALOPATHY PNA - Plan Plan: WILL DIALYZE TOMORROW WITH UF TOLERATED GIVE 2 UNITS PRBC W DIALYSIS TOMORROW EPOGEN ABX SUPPORTIVE MGMT Nutritional Asmnt/Malnutr-PDOC - Dietary Evaluation Malnutrition Findings (Please click <Entered> for more info): Nutritional Asmnt/Malnutrition Start: 02/26/19 16: 42 Text: Status: Complete Freq: Protocol: Document 02/26/19 16:42 [email or web address] (Rec: 02/26/19 17:14 [email or web address]) Nutritional Asmnt/Malnutrition Patient General Information Nutritional Screening High Risk Consult Diagnosis AMS after HD, PNA, septic shock, hypotension Pertinent Medical Hx/Surgical Hx ESRD on HD, CVA, functional quadriplegia, DM, HTN, HLD, dysphagia s/p GT, sacral decubitus, hx of C.diff Subjective Information Pt on pressor and vent support , on trach, Nepro at 40 ml/hr upon visit, tolerating TF with no GRV per RN, +diarrhea, rectal tube placed. Pt on multiple abx. +unstageable sacrum, recommended TF meets 95% RDI. No family at bedside, unable to assess nutrition intake hx or wt hx. RN made aware of recs, states verbal order for 1500ml fluid restriction. Pending HD 02/27. Wt obtained by bedscale. Will reassess kcal needs once pt off vent support. Current Diet Order/ Nutrition Support Nepro at 40ml/hr x 20 hours= 800ml, 1440kcal, 65g protein, 581ml free water Patient / S.O Not Indicated Pertinent Medications vitamin C 500mg, Lipitor, folic acid, Levemir, Humalog, magnesium oxide, Reglan Q6h, norepinephrine, IV abx, Protonix, lactulose PRN Pertinent Labs (02/26) BUN 55, Cr 2.7, Glu 87, Alk Phos 106, Alb 3.3 Nutritional Hx/Data Height 1.68 m Height (Calculated Centimeters) 167.6 Current Weight (lbs) 68.492 kg Weight (Calculated Kilograms) 68.5 Weight (Calculated Grams) 12462.4 [place] Body Weight 142 lb Body Mass Index (BMI) 24.3 Weight Status Approriate GI Symptoms GI Symptoms Diarrhea Last BM 02/26 Difficult in: Swallowing Skin Integrity/Comment: unstageable sacrum Estimated Nutritional Goals BEE in Kcals: Adj wt of IBW Calories/Kcals/Kg 5518-7399 kcal Kcals Calculated 25-30 kcal/kg Protein: Adj wt of IBW Protein g/k-91g Protein Calculated 1.1-1.4 g/kg Fluid: ml 1000ml+UOP (dialysis) Nutritional Problem 2. Problem Problem Increased nutrient needs Etiology wound healing, ESRD Signs/Symptoms: unstageable sacrum, on HD 1. Problem Problem Inadequate enteral infusion Etiology new admit Signs/Symptoms: Nepro at 40ml/hr x 20 hours meets 89% kcal, 90% protein needs (suboptimal). Intervention/Recommendation Comments 1. Increase Nepro to 45 ml/hr goal rate x 20 hours= 900ml, 1620kcal, 73g protein, 654ml free water; meets 100% estimated kcal/protein needs 2. Consider water flush 100ml Q6h per MD 3. F/U as high risk in 2-3 days Expected Outcomes/Goals Expected Outcomes/Goals 1. Pt to meet at least 90% of nutritional needs via nutrition support with tolerance 2. Monitor TF rate, tolerance, wt, skin integrity and labs Mera Kaplan RD
--- NOTE | 2019-03-01 00:17 | Infectious Disease Prog Note ---
Infectious Disease Subjective - Review of Systems Service Date: 02/28/19 Subjective: There is no new change, no fever. on the ventilator. s/p trach and peg. Infectious Disease Objective - Results Result Diagrams: 02/28/19 04:50 02/28/19 04:50 Recent Labs: Laboratory Last Values WBC 11.0 Th/cmm (4.8-10.8) H 02/28/19 04:50 RBC 2.36 Mil/cmm (3.80-5.80) L 02/28/19 04:50 Hgb 7.4 gm/dL (12-16) L* 02/28/19 04:50 Hct 23.2 % (41.0-60) L 02/28/19 04:50 MCV 98.5 fl (80-99) 02/28/19 04:50 MCH 31.5 pg (27.0-31.0) H 02/28/19 04:50 MCHC Differential 31.9 pg (28.0-36.0) 02/28/19 04:50 RDW 18.7 % (11.5-20.0) 02/28/19 04:50 Plt Count 193 Th/cmm (150-400) 02/28/19 04:50 MPV 9.2 fl 02/28/19 04:50 Add Manual Diff YES 02/26/19 04:45 Neutrophils % 77.2 % (40.0-80.0) 02/28/19 04:50 Band Neutrophils % 0 % (0-10) 02/26/19 04:45 Lymphocytes % 10.4 % (20.0-50.0) L 02/28/19 04:50 Monocytes % 7.9 % (2.0-10.0) 02/28/19 04:50 Eosinophils % 4.2 % (0.0-5.0) 02/28/19 04:50 Basophils % 0.3 % (0.0-2.0) 02/28/19 04:50 Neutrophils (Manual) 86 % (40-80) H 02/26/19 04:45 Lymphocytes 7 % (20-50) L 02/26/19 04:45 Monocytes 5 % (2-10) 02/26/19 04:45 Eosinophils 2 % (0-5) 02/26/19 04:45 Basophils 0 % (0-3) 02/26/19 04:45 Platelet Estimate ADEQUATE (NORMAL) 02/26/19 04:45 PT 11.0 SECONDS (9.5-11.5) 02/26/19 04:45 INR 1.06 (0.5-1.4) 02/26/19 04:45 Specimen Source Arterial 02/27/19 07:57 Sample Site LB 02/27/19 07:57 pH 7.402 (7.35-7.45) 02/27/19 07:57 pCO2 35.6 mmHg (35.0-45.0) 02/27/19 07:57 pO2 125.9 mmHg (80.0-100.0) H 02/27/19 07:57 HCO3 21.7 mEq/L (20.0-26.0) 02/27/19 07:57 Base Excess -2.4 mEq/L (-3.0-3.0) 02/27/19 07:57 O2 Saturation 98.5 % (92.0-100.0) 02/27/19 07:57 Yeison Test N/A 02/27/19 07:57 Vent Rate 10 02/27/19 07:57 Inspired O2 30 02/27/19 07:57 Tidal Volume 450 02/27/19 07:57 PEEP 5 02/27/19 07:57 Pressure (ins/psv/peep) 10 02/27/19 07:57 Critical Value DM 02/27/19 07:57 Sodium 135 mEq/L (136-145) L 02/28/19 04:50 Potassium 3.1 mEq/L (3.5-5.1) L 02/28/19 04:50 Chloride 96 mEq/L (98-107) L 02/28/19 04:50 Carbon Dioxide 30.9 mEq/L (21.0-31.0) 02/28/19 04:50 Anion Gap 11.2 (7.0-16.0) 02/28/19 04:50 BUN 40 mg/dL (7-25) H 02/28/19 04:50 Creatinine 2.1 mg/dL (0.7-1.3) H 02/28/19 04:50 Est GFR ( Amer) TNP 02/28/19 04:50 Est GFR (Non-Af Amer) TNP 02/28/19 04:50 BUN/Creatinine Ratio 19.0 02/28/19 04:50 Glucose 131 mg/dL (70-105) H 02/28/19 04:50 POC Glucose 138 MG/DL (70 - 105) H 02/28/19 20:43 Whole Bld Lactic Acid 0.69 mmol/L (0.60-1.99) 02/26/19 06:05 Calcium 8.7 mg/dL (8.6-10.3) 02/28/19 04:50 Magnesium 2.1 mg/dL (1.9-2.7) 02/28/19 04:50 Total Bilirubin 0.5 mg/dL (0.3-1.0) 02/28/19 04:50 Direct Bilirubin 0.16 mg/dL (0.0-0.2) 02/27/19 04:45 AST 16 U/L (13-39) 02/28/19 04:50 ALT 19 U/L (7-52) 02/28/19 04:50 Alkaline Phosphatase 102 U/L (34-104) 02/28/19 04:50 Ammonia 53 umol/L (16-53) 02/27/19 04:45 Total Protein 6.0 gm/dL (6.0-8.3) 02/28/19 04:50 Albumin 2.7 gm/dL (4.2-5.5) L 02/28/19 04:50 Globulin 3.3 gm/dL 02/28/19 04:50 Albumin/Globulin Ratio 0.8 (1.0-1.8) L 02/28/19 04:50 TSH 2.68 uIU/ml (0.34-5.60) 02/27/19 04:45 Stool Occult Blood NEGATIVE (NEGATIVE) 02/28/19 03:00 Random Vancomycin 17.7 ug/mL (5.0-40.0) 02/28/19 04:50 Blood Type O POSITIVE 02/28/19 14:25 Antibody Screen NEGATIVE 02/28/19 14:25 Crossmatch See Detail 02/28/19 14:25 - Physical Exam Vitals and I&O: Vital Signs Temp 98.0 F 02/28/19 21:00 Pulse 85 02/28/19 23:30 Resp 19 02/28/19 23:45 BP 115/65 02/28/19 21:00 Pulse Ox 100 02/28/19 23:30 Intake & Output 02/28/19 02/28/19 03/01/19 06:59 18:59 06:59 Intake Total 1480 580 50 Output Total 500 200 Balance 980 380 50 Weight (lbs) 64.864 kg 68.946 kg Intake: Intake, IV Amount 100 100 50 Piperacillin Sodium/ 100 100 50 Tazobact 2.25 gm In Sodium Chloride 0.9% 50 ml @ 100 mls/hr IV Q6H [facility] Rx#:[id number] Oral 0 Tube Feeding 960 480 Other 420 Output: Urine 0 0 Stool 500 200 Other: Stool Characteristics Liquid Liquid Liquid Brown Brown Brown Weight Source Bedscale Bedscale Active Medications: Current Medications Acetaminophen (Tylenol 650mg/20.3ml Suspension) 650 mg GT Q6H PRN PRN Reason: Fever >101 Stop: 04/27/19 01:35 Last Admin: 02/26/19 23:38 Dose: 650 mg Acetaminophen (Tylenol) 650 mg GT Q4HR PRN PRN Reason: Pain or Fever >101 Stop: 04/27/19 05:39 Last Admin: 02/26/19 17:54 Dose: 650 mg Albuterol/Ipratropium (Duoneb Neb) 3 ml HHN Q2HRT PRN PRN Reason: Shortness of Breath Stop: 04/27/19 05:39 Albuterol/Ipratropium (Duoneb Neb) 3 ml HHN Q4HRT [facility] Stop: 04/27/19 14:59 Last Admin: 02/28/19 23:30 Dose: 3 ml Amlodipine Besylate (Norvasc) 5 mg GT DAILY [facility] Stop: 04/27/19 08:59 Last Admin: 02/28/19 08:05 Dose: 5 mg Artificial Tears (Artificial Tears Ophth Soln) 1 drop EACH EYE BID [facility] Stop: 04/27/19 08:59 Last Admin: 02/28/19 16:30 Dose: 1 drop Ascorbic Acid (Vitamin C) 500 mg GT DAILY [facility] Stop: 04/27/19 08:59 Last Admin: 02/28/19 08:05 Dose: 500 mg Atorvastatin Calcium (Lipitor) 40 mg GT HS [facility] Stop: 04/27/19 20:59 Last Admin: 02/28/19 20:37 Dose: 40 mg Budesonide (Pulmicort) 0.5 mg HHN BIDRT [facility] Stop: 04/27/19 18:59 Last Admin: 02/28/19 18:51 Dose: 0.5 mg [place] Oil/[place] Balsam/Trypsin (Venelex) 1 appl TP BID [facility] Stop: 04/27/19 09:14 Last Admin: 02/28/19 16:31 Dose: 1 appl Chlorhexidine Gluconate (Peridex) 15 ml MM 0800,1999 [facility] Stop: 04/27/19 07:59 Last Admin: 02/28/19 20:44 Dose: 15 ml Dextrose (D50w) 50 ml IVP PRN PRN PRN Reason: Blood Glucose less than 70 Stop: 04/27/19 00:25 Dextrose (Glutose 40%) 18.75 gm PO PRN PRN PRN Reason: Blood Glucose less than 70 Stop: 04/27/19 00:25 Epoetin [place] (Epogen) 6,000 units SUBQ MoWeFr [facility] Stop: 04/27/19 14:59 Last Admin: 02/26/19 18:00 Dose: Not Given Folic Acid (Folate) 1 mg GT DAILY [facility] Stop: 04/27/19 08:59 Last Admin: 02/28/19 08:04 Dose: 1 mg Glucagon (Glucagen) 1 mg IM PRN PRN PRN Reason: Blood Glucose less than 70 Stop: 04/27/19 00:25 Norepinephrine Bitartrate 4 mg (/ Dextrose) 254 mls @ 0 mls/hr IV TITR PRN; Protocol PRN Reason: BP MAINTENANCE (PER PROTOCOL) Stop: 04/27/19 00:34 Last Titration: 02/26/19 07:39 Dose: 0 mcg/min, 0 mls/hr Piperacillin Sod/Tazobactam (Sod 2.25 gm/ Sodium Chloride) 50 mls @ 100 mls/hr IV Q6H [facility] Stop: 04/27/19 07:59 Last Infusion: 02/28/19 21:05 Dose: Infused Insulin Glargine (Lantus Insulin) 20 units SUBQ Q12HR [facility] Stop: 04/27/19 20:59 Last Admin: 02/28/19 20:43 Dose: 20 units Insulin Human Lispro (Humalog Insulin Sliding Scale) 0 units SUBQ Q6HR [facility]; Protocol Stop: 04/27/19 05:59 Last Admin: 02/28/19 17:53 Dose: Not Given Lactobacillus Rhamnosus (Culturelle 15b) 1 each PO DAILY [facility] Stop: 04/28/19 08:59 Last Admin: 02/28/19 08:04 Dose: 1 each Lactulose (Cephulac) 30 gm GT DAILY PRN PRN Reason: Constipation Levetiracetam (Keppra) 750 mg PO Q12H [facility] Stop: 04/27/19 08:59 Last Admin: 02/28/19 20:37 Dose: 750 mg Magnesium Oxide (Mag-Oxide) 400 mg GT DAILY [facility] Stop: 04/27/19 08:59 Last Admin: 02/28/19 08:04 Dose: 400 mg Metoclopramide HCl (Reglan) 5 mg GT Q6H [facility] Stop: 04/27/19 07:59 Last Admin: 02/28/19 21:00 Dose: 5 mg Metoprolol Tartrate (Lopressor) 25 mg GT BID [facility] Stop: 04/27/19 08:59 Last Admin: 02/28/19 16:30 Dose: 25 mg Miscellaneous (Zosyn Iv Per Pharmacy) [facility] PRN PRN PRN Reason: PROTOCOL Stop: 04/26/19 21:23 Miscellaneous (Vancomycin Iv Per Pharmacy) [facility] PRN PRN PRN Reason: PROTOCOL Stop: 04/27/19 06:05 Miscellaneous (Probiotic Screen) [facility] system PRN PRN PRN Reason: PROTOCOL Stop: 04/27/19 13:03 Miscellaneous (Vte Chemical Prophylaxis Screen/ Admission) 1 Health system PRN PRN PRN Reason: PROTOCOL Stop: 04/27/19 13:10 Pantoprazole Sodium (Protonix) 40 mg GT DAILY [facility] Stop: 04/27/19 08:59 Last Admin: 02/28/19 08:04 Dose: 40 mg Vancomycin HCl (Vancomycin Oral) 250 mg PO QID [facility] Stop: 04/28/19 08:59 Last Admin: 02/28/19 20:35 Dose: 250 mg General: no acute distress, well developed, well nourished HEENT: atraumatic, normocephalic, PERRLA, EOMI Neck: supple, tracheostomy, no thyromegaly Cardiovascular: S1S2, regular Lungs: clear to percussion, rhonchi Abdomen: soft, no tender, no distended, no mass Extremities: no cyanosis, no clubbing, no edema Neurological: other (Unresponsive.) Skin: intact - Procedures Procedures: Procedures Procedure Code Date RESPIRATORY VENTILATION, LESS THAN 24 CONSECUTIVE HOURS [id number] 02/25/19 Infectious Disease Assmt/Plan - Assessment Assessment: 1. Septic shock, improving. r/o Bacteremia. 2. Pneumonia 3. Respiratory failure, on ventilator. 4. History of pneumonia. 5. History of Karm[place] infection. 6. History of Clostridium difficile colitis recently. 7. Cerebrovascular accident. 8. Ventilator-dependent respiratory failure. 9. Benign prostatic hypertrophy. 10. Hyperlipidemia. 11. Decubitus sacral large necrotic ulcer, unstageable. - Plan Plan: Continue vancO PO and Zosyn. Wound care. DC vanco IV. Nutritional Asmnt/Malnutr-PDOC - Dietary Evaluation Malnutrition Findings (Please click <Entered> for more info): Nutritional Asmnt/Malnutrition Start: 02/26/19 16: 42 Text: Status: Complete Freq: Protocol: Document 02/26/19 16:42 [email or web address] (Rec: 02/26/19 17:14 [email or web address] [id number]) Nutritional Asmnt/Malnutrition Patient General Information Nutritional Screening High Risk Consult Diagnosis AMS after HD, PNA, septic shock, hypotension Pertinent Medical Hx/Surgical Hx ESRD on HD, CVA, functional quadriplegia, DM, HTN, HLD, dysphagia s/p GT, sacral decubitus, hx of C.diff Subjective Information Pt on pressor and vent support , on trach, Nepro at 40 ml/hr upon visit, tolerating TF with no GRV per RN, +diarrhea, rectal tube placed. Pt on multiple abx. +unstageable sacrum, recommended TF meets 95% RDI. No family at bedside, unable to assess nutrition intake hx or wt hx. RN made aware of recs, states verbal order for 1500ml fluid restriction. Pending HD 02/27. Wt obtained by bedscale. Will reassess kcal needs once pt off vent support. Current Diet Order/ Nutrition Support Nepro at 40ml/hr x 20 hours= 800ml, 1440kcal, 65g protein, 581ml free water Patient / S.O Not Indicated Pertinent Medications vitamin C 500mg, Lipitor, folic acid, Levemir, Humalog, magnesium oxide, Reglan Q6h, norepinephrine, IV abx, Protonix, lactulose PRN Pertinent Labs (02/26) BUN 55, Cr 2.7, Glu 87, Alk Phos 106, Alb 3.3 Nutritional Hx/Data Height 1.68 m Height (Calculated Centimeters) 167.6 Current Weight (lbs) 68.492 kg Weight (Calculated Kilograms) 68.5 Weight (Calculated Grams) 47852.4 [place] Body Weight 142 lb Body Mass Index (BMI) 24.3 Weight Status Approriate GI Symptoms GI Symptoms Diarrhea Last BM 02/26 Difficult in: Swallowing Skin Integrity/Comment: unstageable sacrum Estimated Nutritional Goals BEE in Kcals: Adj wt of IBW Calories/Kcals/Kg 0997-1995 kcal Kcals Calculated 25-30 kcal/kg Protein: Adj wt of IBW Protein g/k-91g Protein Calculated 1.1-1.4 g/kg Fluid: ml 1000ml+UOP (dialysis) Nutritional Problem 2. Problem Problem Increased nutrient needs Etiology wound healing, ESRD Signs/Symptoms: unstageable sacrum, on HD 1. Problem Problem Inadequate enteral infusion Etiology new admit Signs/Symptoms: Nepro at 40ml/hr x 20 hours meets 89% kcal, 90% protein needs (suboptimal). Intervention/Recommendation Comments 1. Increase Nepro to 45 ml/hr goal rate x 20 hours= 900ml, 1620kcal, 73g protein, 654ml free water; meets 100% estimated kcal/protein needs 2. Consider water flush 100ml Q6h per MD 3. F/U as high risk in 2-3 days Expected Outcomes/Goals Expected Outcomes/Goals 1. Pt to meet at least 90% of nutritional needs via nutrition support with tolerance 2. Monitor TF rate, tolerance, wt, skin integrity and labs Mera Kaplan RD
--- NOTE | 2019-03-01 00:27 | Progress Notes ---
DATE: 02/28/2019 PULMONARY PROGRESS NOTE PROBLEM LIST: 1. Acute on chronic respiratory failure. 2. Possibly sepsis. 3. Episode of cardiac arrhythmia, not given beta coco. The patient unfortunately has not given enough fluid removal on his dialysis yesterday. PHYSICAL EXAMINATION: GENERAL: The patient is lying down flat on a ventilator. VITAL SIGNS: Temperature is 98.2, blood pressure 118/65, saturation 100% on 30%. NECK: Veins not visualized. CHEST: Shows diminished air entry with occasional rhonchi. HEART: Regular. ABDOMEN: Soft, nontender. LABORATORY DATA: White count is 11,000, hemoglobin 7.4, potassium is 3.1. ASSESSMENT: The patient clinically unchanged. Unfortunately, a lot of fluid, weight gain, not having drained the fluid on dialysis. PLANS AND SUGGESTIONS: Continue current treatment. We will follow and repeat chest x-ray, lab test. Care and plan discussed with the nursing staff. JOB# [id number]
[2019-03-01] MEDS: INSULIN LISPRO SLIDING SCALE 100 UNITS/ML UNIT SUBQ SCH ×4 (00:41→17:52)
[2019-03-01] MEDS: Piperacillin/Tazobact 2.25 gm in 0.9% NS 50 ML IV SCH ×4 (02:02→20:36)
[2019-03-01] MEDS: Albuterol/Ipratropium Neb 3 ML AERS HHN SCH ×6 (02:37→23:04)
--- NOTE | 2019-03-01 02:53 | Progress Notes ---
DATE: 02/28/2019 SUBJECTIVE: This 73-year-old male was seen and examined. The patient in ICU bed 7. Status remained the same. The patient is status post tracheostomy on vent. PHYSICAL EXAMINATION: VITAL SIGNS: Heart rate was 85, blood pressure is 105/65, respirations 17, temperature 97.8, O2 saturation 100%. SKIN: Normal. HEENT: Head: Normocephalic. Eyes: Conjunctivae were pale. There is no icterus in the eyes. Pupils reactive to light. NECK: There was no increased jugular vein distention, no thyromegaly, no lymphadenopathy. Carotids equal both sides. CHEST: Bilaterally symmetrical. Moves well with respiration. Respiratory movements equal both sides. Trachea is central. There is note to percussion. Breath sounds, basilar rales, few rhonchi. CARDIOVASCULAR SYSTEM: PMI not well localized. There is no pulsation or thrill. No parasternal heave. S1 normal. S2 physiologic. There were no S3, no rub. ABDOMEN: Soft, no tenderness, no rigidity, no guarding, no organomegaly. Bowel sounds normal. LABORATORY AND DIAGNOSTIC DATA: Looking at the lab: WBC count was 11, RBC 2.36, hemoglobin 7.4, hematocrit 23.2, MCV 98.5, MCH 31.5, MCHC 31.9, platelet count 193. Sodium was 135, potassium 3.1, chloride 96, CO2 30.9, BUN 40, creatinine 2.1, AST 16, ALT 19, alkaline phosphatase 102, total protein 6, albumin 2.7, globulin 3.3. IMPRESSION: Supraventricular tachyarrhythmia, probably atrial fibrillation, severe anemia for blood transfusion, hypokalemia - K has been corrected, sepsis status post septic shock, respiratory failure, status post tracheostomy on vent, aspiration pneumonia with pseudomonas, ESBL E. coli, seizure disorder, old cerebrovascular accident, diabetes type 2, diabetic chronic kidney disease, end-stage renal disease on hemodialysis, status post PEG, decubitus ulcer, so he is to continue present management, to keep close watch on CBC and BMP. JOB# [id number]
[2019-03-01 06:28] LABS: ALB/GLOB RATIO 0.8 (1.0-1.8); ALBUMIN 2.6 gm/dL (4.2-5.5); ALKALINE PHOSPHATASE 96 U/L (34-104); ANION GAP 14.1 (7.0-16.0); BILIRUBIN,TOTAL 0.4 mg/dL (0.3-1.0); BUN - UREA NITROGEN 56 mg/dL (7-25); CALCIUM SERUM 8.9 mg/dL (8.6-10.3); CHLORIDE 97 mEq/L (98-107); CREATININE - SERUM 2.9 mg/dL (0.7-1.3); GLUCOSE 153 mg/dL (70-105); POTASSIUM SERUM 3.1 mEq/L (3.5-5.1); SGOT 17 U/L (13-39); SGPT/ALT 21 U/L (7-52); SODIUM SERUM 138 mEq/L (136-145); TOTAL PROTEIN,SERUM 5.9 gm/dL (6.0-8.3)
[2019-03-01] MEDS: Budesonide 0.5 Mg/2 mL Ud HHN SCH ×2 (07:42→19:14)
--- NOTE | 2019-03-01 08:14 | General Progress Note ---
Subjective - Review of Systems Service Date: 03/01/19 Subjective: Patient was seen and examined. Awake, alert, responsive to verbal stimuli. no acute distress. Opens eyes. Patient doing better today. for dialysis today Objective - Results Result Diagrams: 02/28/19 04:50 03/01/19 06:00 Recent Labs: Laboratory Last Values WBC 11.0 Th/cmm (4.8-10.8) H 02/28/19 04:50 RBC 2.36 Mil/cmm (3.80-5.80) L 02/28/19 04:50 Hgb 7.4 gm/dL (12-16) L* 02/28/19 04:50 Hct 23.2 % (41.0-60) L 02/28/19 04:50 MCV 98.5 fl (80-99) 02/28/19 04:50 MCH 31.5 pg (27.0-31.0) H 02/28/19 04:50 MCHC Differential 31.9 pg (28.0-36.0) 02/28/19 04:50 RDW 18.7 % (11.5-20.0) 02/28/19 04:50 Plt Count 193 Th/cmm (150-400) 02/28/19 04:50 MPV 9.2 fl 02/28/19 04:50 Add Manual Diff YES 02/26/19 04:45 Neutrophils % 77.2 % (40.0-80.0) 02/28/19 04:50 Band Neutrophils % 0 % (0-10) 02/26/19 04:45 Lymphocytes % 10.4 % (20.0-50.0) L 02/28/19 04:50 Monocytes % 7.9 % (2.0-10.0) 02/28/19 04:50 Eosinophils % 4.2 % (0.0-5.0) 02/28/19 04:50 Basophils % 0.3 % (0.0-2.0) 02/28/19 04:50 Neutrophils (Manual) 86 % (40-80) H 02/26/19 04:45 Lymphocytes 7 % (20-50) L 02/26/19 04:45 Monocytes 5 % (2-10) 02/26/19 04:45 Eosinophils 2 % (0-5) 02/26/19 04:45 Basophils 0 % (0-3) 02/26/19 04:45 Platelet Estimate ADEQUATE (NORMAL) 02/26/19 04:45 PT 11.0 SECONDS (9.5-11.5) 02/26/19 04:45 INR 1.06 (0.5-1.4) 02/26/19 04:45 Specimen Source Arterial 02/27/19 07:57 Sample Site LB 02/27/19 07:57 pH 7.402 (7.35-7.45) 02/27/19 07:57 pCO2 35.6 mmHg (35.0-45.0) 02/27/19 07:57 pO2 125.9 mmHg (80.0-100.0) H 02/27/19 07:57 HCO3 21.7 mEq/L (20.0-26.0) 02/27/19 07:57 Base Excess -2.4 mEq/L (-3.0-3.0) 02/27/19 07:57 O2 Saturation 98.5 % (92.0-100.0) 02/27/19 07:57 Yeison Test N/A 02/27/19 07:57 Vent Rate 10 02/27/19 07:57 Inspired O2 30 02/27/19 07:57 Tidal Volume 450 02/27/19 07:57 PEEP 5 02/27/19 07:57 Pressure (ins/psv/peep) 10 02/27/19 07:57 Critical Value DM 02/27/19 07:57 Sodium 138 mEq/L (136-145) 03/01/19 06:00 Potassium 3.1 mEq/L (3.5-5.1) L 03/01/19 06:00 Chloride 97 mEq/L (98-107) L 03/01/19 06:00 Carbon Dioxide 30.0 mEq/L (21.0-31.0) 03/01/19 06:00 Anion Gap 14.1 (7.0-16.0) 03/01/19 06:00 BUN 56 mg/dL (7-25) H 03/01/19 06:00 Creatinine 2.9 mg/dL (0.7-1.3) H 03/01/19 06:00 Est GFR ( Amer) TNP 03/01/19 06:00 Est GFR (Non-Af Amer) TNP 03/01/19 06:00 BUN/Creatinine Ratio 19.3 03/01/19 06:00 Glucose 153 mg/dL (70-105) H 03/01/19 06:00 POC Glucose 140 MG/DL (70 - 105) H 03/01/19 05:08 Whole Bld Lactic Acid 0.69 mmol/L (0.60-1.99) 02/26/19 06:05 Calcium 8.9 mg/dL (8.6-10.3) 03/01/19 06:00 Magnesium 2.1 mg/dL (1.9-2.7) 02/28/19 04:50 Total Bilirubin 0.4 mg/dL (0.3-1.0) 03/01/19 06:00 Direct Bilirubin 0.16 mg/dL (0.0-0.2) 02/27/19 04:45 AST 17 U/L (13-39) 03/01/19 06:00 ALT 21 U/L (7-52) 03/01/19 06:00 Alkaline Phosphatase 96 U/L (34-104) 03/01/19 06:00 Ammonia 53 umol/L (16-53) 02/27/19 04:45 Total Protein 5.9 gm/dL (6.0-8.3) L 03/01/19 06:00 Albumin 2.6 gm/dL (4.2-5.5) L 03/01/19 06:00 Globulin 3.3 gm/dL 03/01/19 06:00 Albumin/Globulin Ratio 0.8 (1.0-1.8) L 03/01/19 06:00 TSH 2.68 uIU/ml (0.34-5.60) 02/27/19 04:45 Stool Occult Blood NEGATIVE (NEGATIVE) 03/01/19 05:45 Random Vancomycin 29.2 ug/mL (5.0-40.0) 03/01/19 06:00 Blood Type O POSITIVE 02/28/19 14:25 Antibody Screen NEGATIVE 02/28/19 14:25 Crossmatch See Detail 02/28/19 14:25 - Physical Exam Vitals and I&O: Vital Signs Temp 98.2 F 03/01/19 06:00 Pulse 90 03/01/19 07:51 Resp 16 03/01/19 06:00 BP 137/71 03/01/19 06:00 Pulse Ox 100 03/01/19 07:51 Intake & Output 02/28/19 03/01/19 03/01/19 18:59 06:59 18:59 Intake Total 580 680 Output Total 200 50 Balance 380 630 Weight (lbs) 68.946 kg 68.991 kg Intake: Intake, IV Amount 100 100 Piperacillin Sodium/ 100 100 Tazobact 2.25 gm In Sodium Chloride 0.9% 50 ml @ 100 mls/hr IV Q6H [facility] Rx#:[id number] Tube Feeding 480 460 Other 120 Output: Urine 0 0 Stool 200 50 Other: Stool Characteristics Liquid Liquid Brown Brown Weight Source Bedscale Bedscale Active Medications: Current Medications Acetaminophen (Tylenol 650mg/20.3ml Suspension) 650 mg GT Q6H PRN PRN Reason: Fever >101 Stop: 04/27/19 01:35 Last Admin: 02/26/19 23:38 Dose: 650 mg Acetaminophen (Tylenol) 650 mg GT Q4HR PRN PRN Reason: Pain or Fever >101 Stop: 04/27/19 05:39 Last Admin: 02/26/19 17:54 Dose: 650 mg Albuterol/Ipratropium (Duoneb Neb) 3 ml HHN Q2HRT PRN PRN Reason: Shortness of Breath Stop: 04/27/19 05:39 Albuterol/Ipratropium (Duoneb Neb) 3 ml HHN Q4HRT [facility] Stop: 04/27/19 14:59 Last Admin: 03/01/19 07:42 Dose: 3 ml Amlodipine Besylate (Norvasc) 5 mg GT DAILY [facility] Stop: 04/27/19 08:59 Last Admin: 02/28/19 08:05 Dose: 5 mg Artificial Tears (Artificial Tears Ophth Soln) 1 drop EACH EYE BID [facility] Stop: 04/27/19 08:59 Last Admin: 02/28/19 16:30 Dose: 1 drop Ascorbic Acid (Vitamin C) 500 mg GT DAILY [facility] Stop: 04/27/19 08:59 Last Admin: 02/28/19 08:05 Dose: 500 mg Atorvastatin Calcium (Lipitor) 40 mg GT HS [facility] Stop: 04/27/19 20:59 Last Admin: 02/28/19 20:37 Dose: 40 mg Budesonide (Pulmicort) 0.5 mg HHN BIDRT [facility] Stop: 04/27/19 18:59 Last Admin: 03/01/19 07:42 Dose: 0.5 mg [place] Oil/[place]ipino Balsam/Trypsin (Venelex) 1 appl TP BID [facility] Stop: 04/27/19 09:14 Last Admin: 02/28/19 16:31 Dose: 1 appl Chlorhexidine Gluconate (Peridex) 15 ml MM 0800,2000 [facility] Stop: 04/27/19 07:59 Last Admin: 02/28/19 20:44 Dose: 15 ml Dextrose (D50w) 50 ml IVP PRN PRN PRN Reason: Blood Glucose less than 70 Stop: 04/27/19 00:25 Dextrose (Glutose 40%) 18.75 gm PO PRN PRN PRN Reason: Blood Glucose less than 70 Stop: 04/27/19 00:25 Epoetin [place] (Epogen) 6,000 units SUBQ MoWeFr [facility] Stop: 04/27/19 14:59 Last Admin: 02/26/19 18:00 Dose: Not Given Folic Acid (Folate) 1 mg GT DAILY [facility] Stop: 04/27/19 08:59 Last Admin: 02/28/19 08:04 Dose: 1 mg Glucagon (Glucagen) 1 mg IM PRN PRN PRN Reason: Blood Glucose less than 70 Stop: 04/27/19 00:25 Norepinephrine Bitartrate 4 mg (/ Dextrose) 254 mls @ 0 mls/hr IV TITR PRN; Protocol PRN Reason: BP MAINTENANCE (PER PROTOCOL) Stop: 04/27/19 00:34 Last Titration: 02/26/19 07:39 Dose: 0 mcg/min, 0 mls/hr Piperacillin Sod/Tazobactam (Sod 2.25 gm/ Sodium Chloride) 50 mls @ 100 mls/hr IV Q6H [facility] Stop: 04/27/19 07:59 Last Infusion: 03/01/19 02:35 Dose: Infused Insulin Glargine (Lantus Insulin) 20 units SUBQ Q12HR [facility] Stop: 04/27/19 20:59 Last Admin: 02/28/19 20:43 Dose: 20 units Insulin Human Lispro (Humalog Insulin Sliding Scale) 0 units SUBQ Q6HR [facility]; Protocol Stop: 04/27/19 05:59 Last Admin: 03/01/19 06:09 Dose: Not Given Lactobacillus Rhamnosus (Culturelle 15b) 1 each PO DAILY [facility] Stop: 04/28/19 08:59 Last Admin: 02/28/19 08:04 Dose: 1 each Lactulose (Cephulac) 30 gm GT DAILY PRN PRN Reason: Constipation Levetiracetam (Keppra) 750 mg PO Q12H [facility] Stop: 04/27/19 08:59 Last Admin: 02/28/19 20:37 Dose: 750 mg Magnesium Oxide (Mag-Oxide) 400 mg GT DAILY [facility] Stop: 04/27/19 08:59 Last Admin: 02/28/19 08:04 Dose: 400 mg Metoclopramide HCl (Reglan) 5 mg GT Q6H [facility] Stop: 04/27/19 07:59 Last Admin: 03/01/19 02:02 Dose: 5 mg Metoprolol Tartrate (Lopressor) 25 mg GT BID [facility] Stop: 04/27/19 08:59 Last Admin: 02/28/19 16:30 Dose: 25 mg Miscellaneous (Zosyn Iv Per Pharmacy) 1 ea PRN PRN PRN Reason: PROTOCOL Stop: 04/26/19 21:23 Miscellaneous (Vancomycin Iv Per Pharmacy) 1 ea PRN PRN PRN Reason: PROTOCOL Stop: 04/27/19 06:05 Miscellaneous (Probiotic Screen) 1 ea PRN PRN PRN Reason: PROTOCOL Stop: 04/27/19 13:03 Miscellaneous (Vte Chemical Prophylaxis Screen/ Admission) 1 ea PRN PRN PRN Reason: PROTOCOL Stop: 04/27/19 13:10 Pantoprazole Sodium (Protonix) 40 mg GT DAILY [facility] Stop: 04/27/19 08:59 Last Admin: 02/28/19 08:04 Dose: 40 mg Vancomycin HCl (Vancomycin Oral) 250 mg PO QID [facility] Stop: 04/28/19 08:59 Last Admin: 02/28/19 20:35 Dose: 250 mg General: Alert, No acute distress Neck: Supple, Other (s/p tracheostomy) Cardiovascular: Other (irregularly irregular) Lungs: Clear to auscultation Abdomen: Bowel sounds, Soft Extremities: Edema, no Clubbing, no Cyanosis Skin: Breakdown (sacral decubitus ) - Procedures Procedures: Procedures Procedure Code Date RESPIRATORY VENTILATION, LESS THAN 24 CONSECUTIVE HOURS [id number] 02/25/19 Assessment/Plan - Assessment Assessment: AMS encephalopathy leukoocytosis anemia aspiration PNA Acute on Chronic Respiratory Failure s/p tracheostomy sepsis septic shock PNA +Pseudomonas and ESBL Klebsiella and Influenzae B h/o C. Difficile h/o [place] albicans Chronic Atrial Fibrillation Seizure d/o CVA Functional Quadreplegia Dementia BPH HTN DM Hyperlipidemia ESRD on HD Sacral Decubitus stage 1/2 - Plan Plan: repeat labwork CBC, CMP, Lactic Acid ID consult pulmonary consult cardiology consult renal consult surgical consult CXR tomorrow continue Zosyn IV Nutritional Asmnt/Malnutr-PDOC - Dietary Evaluation Malnutrition Findings (Please click <Entered> for more info): Nutritional Asmnt/Malnutrition Start: 02/26/19 16: 42 Text: Status: Complete Freq: Protocol: Document 02/26/19 16:42 [email or web address] (Rec: 02/26/19 17:14 [email or web address] [email or web address]) Nutritional Asmnt/Malnutrition Patient General Information Nutritional Screening High Risk Consult Diagnosis AMS after HD, PNA, septic shock, hypotension Pertinent Medical Hx/Surgical Hx ESRD on HD, CVA, functional quadriplegia, DM, HTN, HLD, dysphagia s/p GT, sacral decubitus, hx of C.diff Subjective Information Pt on pressor and vent support , on trach, Nepro at 40 ml/hr upon visit, tolerating TF with no GRV per RN, +diarrhea, rectal tube placed. Pt on multiple abx. +unstageable sacrum, recommended TF meets 95% RDI. No family at bedside, unable to assess nutrition intake hx or wt hx. RN made aware of recs, states verbal order for 1500ml fluid restriction. Pending HD 02/27. Wt obtained by bedscale. Will reassess kcal needs once pt off vent support. Current Diet Order/ Nutrition Support Nepro at 40ml/hr x 20 hours= 800ml, 1440kcal, 65g protein, 581ml free water Patient / S.O Not Indicated Pertinent Medications vitamin C 500mg, Lipitor, folic acid, Levemir, Humalog, magnesium oxide, Reglan Q6h, norepinephrine, IV abx, Protonix, lactulose PRN Pertinent Labs (02/26) BUN 55, Cr 2.7, Glu 87, Alk Phos 106, Alb 3.3 Nutritional Hx/Data Height 1.68 m Height (Calculated Centimeters) 167.6 Current Weight (lbs) 68.492 kg Weight (Calculated Kilograms) 68.5 Weight (Calculated Grams) 69512.4 [place] Body Weight 142 lb Body Mass Index (BMI) 24.3 Weight Status Approriate GI Symptoms GI Symptoms Diarrhea Last BM 02/26 Difficult in: Swallowing Skin Integrity/Comment: unstageable sacrum Estimated Nutritional Goals BEE in Kcals: Adj wt of IBW Calories/Kcals/Kg 7038-2309 kcal Kcals Calculated 25-30 kcal/kg Protein: Adj wt of IBW Protein g/k-91g Protein Calculated 1.1-1.4 g/kg Fluid: ml 1000ml+UOP (dialysis) Nutritional Problem 2. Problem Problem Increased nutrient needs Etiology wound healing, ESRD Signs/Symptoms: unstageable sacrum, on HD 1. Problem Problem Inadequate enteral infusion Etiology new admit Signs/Symptoms: Nepro at 40ml/hr x 20 hours meets 89% kcal, 90% protein needs (suboptimal). Intervention/Recommendation Comments 1. Increase Nepro to 45 ml/hr goal rate x 20 hours= 900ml, 1620kcal, 73g protein, 654ml free water; meets 100% estimated kcal/protein needs 2. Consider water flush 100ml Q6h per MD 3. F/U as high risk in 2-3 days Expected Outcomes/Goals Expected Outcomes/Goals 1. Pt to meet at least 90% of nutritional needs via nutrition support with tolerance 2. Monitor TF rate, tolerance, wt, skin integrity and labs Mera Kaplan RD
--- NOTE | 2019-03-01 08:15 | Diagnostic Imaging Report ---
CHEST X-RAY: AP view INDICATION: Shortness of breath. COMPARISON: 02/27/2019 FINDINGS: Support devices are stable. Increased interstitial lung markings are seen, right greater than left. Heart is size normal. Degenerative changes of spine are noted with scoliosis. IMPRESSION: Increased interstitial lung markings, right greater than left. Underlying interstitial infiltrates cannot be excluded especially on the right side.
[2019-03-01] MEDS: Chlorhexidine Gluconate 0.12% 15mL Mouthwash MM SCH ×2 (08:19→20:38)
[2019-03-01 08:49] LABS: WHITE BLOOD COUNT 10.4 Th/cmm (4.8-10.8)
[2019-03-01 08:50] LABS: HEMOGLOBIN 6.7 gm/dL (12-16); RED BLOOD COUNT 2.19 Mil/cmm (3.80-5.80)
[2019-03-01 08:51] LABS: HEMATOCRIT 21.4 % (41.0-60); MEAN CELL VOLUME 97.5 fl (80-99); MEAN CORPUSCULAR HEMOGLOBIN 30.7 pg (27.0-31.0); MEAN CORPUSCULAR HGB CONC 31.5 pg (28.0-36.0); MEAN PLATELET VOLUME 9.2 fl; PLATELET COUNT 193 Th/cmm (150-400); RED CELL DISTRIBUTION WIDTH 18.6 % (11.5-20.0)
[2019-03-01] MEDS: Polyvinyl Alcohol Ophth Soln 15 mL Bottle EACH EYE SCH ×2 (08:51→16:42)
[2019-03-01] MEDS: Lactobacillus Rhamnosus GG 15 Billion CFU CAP.SPRINK PO SCH (08:51)
[2019-03-01] MEDS: Venelex 60gm Tube TP SCH ×2 (08:51→16:42)
[2019-03-01 08:52] LABS: % BASOPHILS 0.4 % (0.0-2.0); % EOSINOPHILS 4.4 % (0.0-5.0); % LYMPHOCYTES 11.2 % (20.0-50.0); % MONOCYTES 7.6 % (2.0-10.0); % NEUTROPHILS 76.4 % (40.0-80.0)
[2019-03-01] MEDS: Apixaban 2.5 MG TABLET PO SCH ×2 (08:53→20:38)
[2019-03-01] MEDS: Pantoprazole 40 mg/Packet GT SCH (08:54)
[2019-03-01] MEDS: Insulin Glargine 100 units/ml 10ml Vial SUBQ SCH ×2 (08:54→20:48)
[2019-03-01] MEDS: Vancomycin HCL 250 mg /10mL UDC PO SCH ×4 (08:58→20:38)
--- NOTE | 2019-03-01 10:59 | Diagnostic Imaging Report ---
Portable chest x-ray HISTORY: Shortness of breath, vascular catheter placement Compared with prior exam of February 25, 2019, a left-sided vascular catheter has been inserted. The tip is in the superior vena cava near the junction with the left brachiocephalic vein. There is a poor inspiration which results in accentuation of the interstitial lung markings. Allowing for this factor, no definite focal processes are seen. No other changes. IMPRESSION: 1. Vascular catheter placement as noted above 2. No change in the cardiopulmonary status
--- NOTE | 2019-03-01 11:08 | Infectious Disease Prog Note ---
Infectious Disease Subjective - Review of Systems Service Date: 03/01/19 Subjective: There is no new change, no fever. on the ventilator. s/p trach and peg. Infectious Disease Objective - Results Result Diagrams: 03/01/19 06:00 03/01/19 06:00 Recent Labs: Laboratory Last Values WBC 10.4 Th/cmm (4.8-10.8) 03/01/19 06:00 RBC 2.19 Mil/cmm (3.80-5.80) L 03/01/19 06:00 Hgb 6.7 gm/dL (12-16) L* 03/01/19 06:00 Hct 21.4 % (41.0-60) L 03/01/19 06:00 MCV 97.5 fl (80-99) 03/01/19 06:00 MCH 30.7 pg (27.0-31.0) 03/01/19 06:00 MCHC Differential 31.5 pg (28.0-36.0) 03/01/19 06:00 RDW 18.6 % (11.5-20.0) 03/01/19 06:00 Plt Count 193 Th/cmm (150-400) 03/01/19 06:00 MPV 9.2 fl 03/01/19 06:00 Add Manual Diff YES 02/26/19 04:45 Neutrophils % 76.4 % (40.0-80.0) 03/01/19 06:00 Band Neutrophils % 0 % (0-10) 02/26/19 04:45 Lymphocytes % 11.2 % (20.0-50.0) L 03/01/19 06:00 Monocytes % 7.6 % (2.0-10.0) 03/01/19 06:00 Eosinophils % 4.4 % (0.0-5.0) 03/01/19 06:00 Basophils % 0.4 % (0.0-2.0) 03/01/19 06:00 Neutrophils (Manual) 86 % (40-80) H 02/26/19 04:45 Lymphocytes 7 % (20-50) L 02/26/19 04:45 Monocytes 5 % (2-10) 02/26/19 04:45 Eosinophils 2 % (0-5) 02/26/19 04:45 Basophils 0 % (0-3) 02/26/19 04:45 Platelet Estimate ADEQUATE (NORMAL) 02/26/19 04:45 PT 11.0 SECONDS (9.5-11.5) 02/26/19 04:45 INR 1.06 (0.5-1.4) 02/26/19 04:45 Specimen Source Arterial 02/27/19 07:57 Sample Site LB 02/27/19 07:57 pH 7.402 (7.35-7.45) 02/27/19 07:57 pCO2 35.6 mmHg (35.0-45.0) 02/27/19 07:57 pO2 125.9 mmHg (80.0-100.0) H 02/27/19 07:57 HCO3 21.7 mEq/L (20.0-26.0) 02/27/19 07:57 Base Excess -2.4 mEq/L (-3.0-3.0) 02/27/19 07:57 O2 Saturation 98.5 % (92.0-100.0) 02/27/19 07:57 Yeison Test N/A 02/27/19 07:57 Vent Rate 10 02/27/19 07:57 Inspired O2 30 02/27/19 07:57 Tidal Volume 450 02/27/19 07:57 PEEP 5 02/27/19 07:57 Pressure (ins/psv/peep) 10 02/27/19 07:57 Critical Value DM 02/27/19 07:57 Sodium 138 mEq/L (136-145) 03/01/19 06:00 Potassium 3.1 mEq/L (3.5-5.1) L 03/01/19 06:00 Chloride 97 mEq/L (98-107) L 03/01/19 06:00 Carbon Dioxide 30.0 mEq/L (21.0-31.0) 03/01/19 06:00 Anion Gap 14.1 (7.0-16.0) 03/01/19 06:00 BUN 56 mg/dL (7-25) H 03/01/19 06:00 Creatinine 2.9 mg/dL (0.7-1.3) H 03/01/19 06:00 Est GFR ( Amer) TNP 03/01/19 06:00 Est GFR (Non-Af Amer) TNP 03/01/19 06:00 BUN/Creatinine Ratio 19.3 03/01/19 06:00 Glucose 153 mg/dL (70-105) H 03/01/19 06:00 POC Glucose 140 MG/DL (70 - 105) H 03/01/19 05:08 Whole Bld Lactic Acid 0.69 mmol/L (0.60-1.99) 02/26/19 06:05 Calcium 8.9 mg/dL (8.6-10.3) 03/01/19 06:00 Magnesium 2.1 mg/dL (1.9-2.7) 02/28/19 04:50 Total Bilirubin 0.4 mg/dL (0.3-1.0) 03/01/19 06:00 Direct Bilirubin 0.16 mg/dL (0.0-0.2) 02/27/19 04:45 AST 17 U/L (13-39) 03/01/19 06:00 ALT 21 U/L (7-52) 03/01/19 06:00 Alkaline Phosphatase 96 U/L (34-104) 03/01/19 06:00 Ammonia 53 umol/L (16-53) 02/27/19 04:45 Total Protein 5.9 gm/dL (6.0-8.3) L 03/01/19 06:00 Albumin 2.6 gm/dL (4.2-5.5) L 03/01/19 06:00 Globulin 3.3 gm/dL 03/01/19 06:00 Albumin/Globulin Ratio 0.8 (1.0-1.8) L 03/01/19 06:00 TSH 2.68 uIU/ml (0.34-5.60) 02/27/19 04:45 Stool Occult Blood NEGATIVE (NEGATIVE) 03/01/19 05:45 Random Vancomycin 29.2 ug/mL (5.0-40.0) 03/01/19 06:00 Blood Type O POSITIVE 02/28/19 14:25 Antibody Screen NEGATIVE 02/28/19 14:25 Crossmatch See Detail 02/28/19 14:25 - Physical Exam Vitals and I&O: Vital Signs Temp 97.8 F 03/01/19 08:00 Pulse 82 03/01/19 10:56 Resp 16 03/01/19 10:00 BP 157/79 03/01/19 10:00 Pulse Ox 100 03/01/19 10:56 Intake & Output 02/28/19 03/01/19 03/01/19 18:59 06:59 18:59 Intake Total 580 680 Output Total 200 50 Balance 380 630 Weight (lbs) 68.946 kg 68.991 kg Intake: Intake, IV Amount 100 100 Piperacillin Sodium/ 100 100 Tazobact 2.25 gm In Sodium Chloride 0.9% 50 ml @ 100 mls/hr IV Q6H [facility] Rx#:[id number] Tube Feeding 480 460 Other 120 Output: Urine 0 0 Stool 200 50 Other: Stool Characteristics Liquid Liquid Liquid Brown Brown Brown Weight Source Bedscale Bedscale Active Medications: Current Medications Acetaminophen (Tylenol 650mg/20.3ml Suspension) 650 mg GT Q6H PRN PRN Reason: Fever >101 Stop: 04/27/19 01:35 Last Admin: 02/26/19 23:38 Dose: 650 mg Acetaminophen (Tylenol) 650 mg GT Q4HR PRN PRN Reason: Pain or Fever >101 Stop: 04/27/19 05:39 Last Admin: 02/26/19 17:54 Dose: 650 mg Albuterol/Ipratropium (Duoneb Neb) 3 ml HHN Q2HRT PRN PRN Reason: Shortness of Breath Stop: 04/27/19 05:39 Albuterol/Ipratropium (Duoneb Neb) 3 ml HHN Q4HRT [facility] Stop: 04/27/19 14:59 Last Admin: 03/01/19 10:56 Dose: 3 ml Amlodipine Besylate (Norvasc) 5 mg GT DAILY [facility] Stop: 04/27/19 08:59 Last Admin: 03/01/19 08:53 Dose: 5 mg Artificial Tears (Artificial Tears Ophth Soln) 1 drop EACH EYE BID [facility] Stop: 04/27/19 08:59 Last Admin: 03/01/19 08:51 Dose: 1 drop Ascorbic Acid (Vitamin C) 500 mg GT DAILY [facility] Stop: 04/27/19 08:59 Last Admin: 03/01/19 08:51 Dose: 500 mg Atorvastatin Calcium (Lipitor) 40 mg GT HS [facility] Stop: 04/27/19 20:59 Last Admin: 02/28/19 20:37 Dose: 40 mg Budesonide (Pulmicort) 0.5 mg HHN BIDRT [facility] Stop: 04/27/19 18:59 Last Admin: 03/01/19 07:42 Dose: 0.5 mg [place] Oil/[place] Balsam/Trypsin (Venelex) 1 appl TP BID [facility] Stop: 04/27/19 09:14 Last Admin: 03/01/19 08:51 Dose: 1 appl Chlorhexidine Gluconate (Peridex) 15 ml MM 0800,2000 [facility] Stop: 04/27/19 07:59 Last Admin: 03/01/19 08:19 Dose: 15 ml Dextrose (D50w) 50 ml IVP PRN PRN PRN Reason: Blood Glucose less than 70 Stop: 04/27/19 00:25 Dextrose (Glutose 40%) 18.75 gm PO PRN PRN PRN Reason: Blood Glucose less than 70 Stop: 04/27/19 00:25 Epoetin [place] (Epogen) 6,000 units SUBQ MoWeFr [facility] Stop: 04/27/19 14:59 Last Admin: 02/26/19 18:00 Dose: Not Given Folic Acid (Folate) 1 mg GT DAILY [facility] Stop: 04/27/19 08:59 Last Admin: 03/01/19 08:51 Dose: 1 mg Glucagon (Glucagen) 1 mg IM PRN PRN PRN Reason: Blood Glucose less than 70 Stop: 04/27/19 00:25 Norepinephrine Bitartrate 4 mg (/ Dextrose) 254 mls @ 0 mls/hr IV TITR PRN; Protocol PRN Reason: BP MAINTENANCE (PER PROTOCOL) Stop: 04/27/19 00:34 Last Titration: 02/26/19 07:39 Dose: 0 mcg/min, 0 mls/hr Piperacillin Sod/Tazobactam (Sod 2.25 gm/ Sodium Chloride) 50 mls @ 100 mls/hr IV Q6H [facility] Stop: 04/27/19 07:59 Last Admin: 03/01/19 08:17 Dose: 100 mls/hr Insulin Glargine (Lantus Insulin) 20 units SUBQ Q12HR [facility] Stop: 04/27/19 20:59 Last Admin: 03/01/19 08:54 Dose: 20 units Insulin Human Lispro (Humalog Insulin Sliding Scale) 0 units SUBQ Q6HR [facility]; Protocol Stop: 04/27/19 05:59 Last Admin: 03/01/19 06:09 Dose: Not Given Lactobacillus Rhamnosus (Culturelle 15b) 1 each PO DAILY [facility] Stop: 04/28/19 08:59 Last Admin: 03/01/19 08:51 Dose: 1 each Lactulose (Cephulac) 30 gm GT DAILY PRN PRN Reason: Constipation Levetiracetam (Keppra) 750 mg PO Q12H [facility] Stop: 04/27/19 08:59 Last Admin: 03/01/19 08:54 Dose: 750 mg Magnesium Oxide (Mag-Oxide) 400 mg GT DAILY [facility] Stop: 04/27/19 08:59 Last Admin: 03/01/19 08:52 Dose: 400 mg Metoclopramide HCl (Reglan) 5 mg GT Q6H [facility] Stop: 04/27/19 07:59 Last Admin: 03/01/19 08:19 Dose: 5 mg Metoprolol Tartrate (Lopressor) 25 mg GT BID [facility] Stop: 04/27/19 08:59 Last Admin: 03/01/19 08:52 Dose: 25 mg Miscellaneous (Zosyn Iv Per Pharmacy) 1 ea PRN PRN PRN Reason: PROTOCOL Stop: 04/26/19 21:23 Miscellaneous (Vancomycin Iv Per Pharmacy) 1 [facility] PRN PRN PRN Reason: PROTOCOL Stop: 04/27/19 06:05 Miscellaneous (Probiotic Screen) 1 [facility] PRN PRN PRN Reason: PROTOCOL Stop: 04/27/19 13:03 Miscellaneous (Vte Chemical Prophylaxis Screen/ Admission) 1 [facility] PRN PRN PRN Reason: PROTOCOL Stop: 04/27/19 13:10 Pantoprazole Sodium (Protonix) 40 mg GT DAILY [facility] Stop: 04/27/19 08:59 Last Admin: 03/01/19 08:54 Dose: 40 mg Vancomycin HCl (Vancomycin Oral) 250 mg PO QID [facility] Stop: 04/28/19 08:59 Last Admin: 03/01/19 08:58 Dose: 250 mg General: no acute distress, well developed, well nourished HEENT: atraumatic, normocephalic, PERRLA, EOMI Neck: supple, tracheostomy Cardiovascular: S1S2, regular Lungs: clear to auscultation bilaterally, clear to percussion Abdomen: soft, no tender, no distended, no rebound Extremities: no cyanosis, no clubbing, no edema Neurological: awake, alert, oriented Skin: other (sacral wound) - Procedures Procedures: Procedures Procedure Code Date RESPIRATORY VENTILATION, 24-96 CONSECUTIVE HOURS [id number] 02/25/19 Infectious Disease Assmt/Plan - Assessment Assessment: 1. Septic shock, improving. r/o Bacteremia. 2. Pneumonia 3. Respiratory failure, on ventilator. 4. History of pneumonia. 5. History of Karmen infection. 6. History of Clostridium difficile colitis recently. 7. Cerebrovascular accident. 8. Ventilator-dependent respiratory failure. 9. Benign prostatic hypertrophy. 10. Hyperlipidemia. 11. Decubitus sacral large necrotic ulcer, unstageable. - Plan Plan: Continue vancO PO and Zosyn. Wound care. ?diverting colostomy. may be considered. Nutritional Asmnt/Malnutr-PDOC - Dietary Evaluation Malnutrition Findings (Please click <Entered> for more info): Nutritional Asmnt/Malnutrition Start: 02/26/19 16: 42 Text: Status: Complete Freq: Protocol: Document 02/26/19 16:42 [email or web address] (Rec: 02/26/19 17:14 [email or web address] [id number]) Nutritional Asmnt/Malnutrition Patient General Information Nutritional Screening High Risk Consult Diagnosis AMS after HD, PNA, septic shock, hypotension Pertinent Medical Hx/Surgical Hx ESRD on HD, CVA, functional quadriplegia, DM, HTN, HLD, dysphagia s/p GT, sacral decubitus, hx of C.diff Subjective Information Pt on pressor and vent support , on trach, Nepro at 40 ml/hr upon visit, tolerating TF with no GRV per RN, +diarrhea, rectal tube placed. Pt on multiple abx. +unstageable sacrum, recommended TF meets 95% RDI. No family at bedside, unable to assess nutrition intake hx or wt hx. RN made aware of recs, states verbal order for 1500ml fluid restriction. Pending HD 02/27. Wt obtained by bedscale. Will reassess kcal needs once pt off vent support. Current Diet Order/ Nutrition Support Nepro at 40ml/hr x 20 hours= 800ml, 1440kcal, 65g protein, 581ml free water Patient / S.O Not Indicated Pertinent Medications vitamin C 500mg, Lipitor, folic acid, Levemir, Humalog, magnesium oxide, Reglan Q6h, norepinephrine, IV abx, Protonix, lactulose PRN Pertinent Labs (02/26) BUN 55, Cr 2.7, Glu 87, Alk Phos 106, Alb 3.3 Nutritional Hx/Data Height 1.68 m Height (Calculated Centimeters) 167.6 Current Weight (lbs) 68.492 kg Weight (Calculated Kilograms) 68.5 Weight (Calculated Grams) 22190.4 [place] Body Weight 142 lb Body Mass Index (BMI) 24.3 Weight Status Approriate GI Symptoms GI Symptoms Diarrhea Last BM 02/26 Difficult in: Swallowing Skin Integrity/Comment: unstageable sacrum Estimated Nutritional Goals BEE in Kcals: Adj wt of IBW Calories/Kcals/Kg 2569-5501 kcal Kcals Calculated 25-30 kcal/kg Protein: Adj wt of IBW Protein g/k-91g Protein Calculated 1.1-1.4 g/kg Fluid: ml 1000ml+UOP (dialysis) Nutritional Problem 2. Problem Problem Increased nutrient needs Etiology wound healing, ESRD Signs/Symptoms: unstageable sacrum, on HD 1. Problem Problem Inadequate enteral infusion Etiology new admit Signs/Symptoms: Nepro at 40ml/hr x 20 hours meets 89% kcal, 90% protein needs (suboptimal). Intervention/Recommendation Comments 1. Increase Nepro to 45 ml/hr goal rate x 20 hours= 900ml, 1620kcal, 73g protein, 654ml free water; meets 100% estimated kcal/protein needs 2. Consider water flush 100ml Q6h per MD 3. F/U as high risk in 2-3 days Expected Outcomes/Goals Expected Outcomes/Goals 1. Pt to meet at least 90% of nutritional needs via nutrition support with tolerance 2. Monitor TF rate, tolerance, wt, skin integrity and labs Mera Kaplan RD
--- NOTE | 2019-03-01 13:13 | General Progress Note ---
Subjective - Review of Systems Service Date: 03/01/19 Subjective: Patient still on ventilatory tracheostomy patient having dialysis and transfusion Objective - Results Result Diagrams: 03/01/19 06:00 03/01/19 06:00 Recent Labs: Laboratory Last Values WBC 10.4 Th/cmm (4.8-10.8) 03/01/19 06:00 RBC 2.19 Mil/cmm (3.80-5.80) L 03/01/19 06:00 Hgb 6.7 gm/dL (12-16) L* 03/01/19 06:00 Hct 21.4 % (41.0-60) L 03/01/19 06:00 MCV 97.5 fl (80-99) 03/01/19 06:00 MCH 30.7 pg (27.0-31.0) 03/01/19 06:00 MCHC Differential 31.5 pg (28.0-36.0) 03/01/19 06:00 RDW 18.6 % (11.5-20.0) 03/01/19 06:00 Plt Count 193 Th/cmm (150-400) 03/01/19 06:00 MPV 9.2 fl 03/01/19 06:00 Add Manual Diff YES 02/26/19 04:45 Neutrophils % 76.4 % (40.0-80.0) 03/01/19 06:00 Band Neutrophils % 0 % (0-10) 02/26/19 04:45 Lymphocytes % 11.2 % (20.0-50.0) L 03/01/19 06:00 Monocytes % 7.6 % (2.0-10.0) 03/01/19 06:00 Eosinophils % 4.4 % (0.0-5.0) 03/01/19 06:00 Basophils % 0.4 % (0.0-2.0) 03/01/19 06:00 Neutrophils (Manual) 86 % (40-80) H 02/26/19 04:45 Lymphocytes 7 % (20-50) L 02/26/19 04:45 Monocytes 5 % (2-10) 02/26/19 04:45 Eosinophils 2 % (0-5) 02/26/19 04:45 Basophils 0 % (0-3) 02/26/19 04:45 Platelet Estimate ADEQUATE (NORMAL) 02/26/19 04:45 PT 11.0 SECONDS (9.5-11.5) 02/26/19 04:45 INR 1.06 (0.5-1.4) 02/26/19 04:45 Specimen Source Arterial 02/27/19 07:57 Sample Site LB 02/27/19 07:57 pH 7.402 (7.35-7.45) 02/27/19 07:57 pCO2 35.6 mmHg (35.0-45.0) 02/27/19 07:57 pO2 125.9 mmHg (80.0-100.0) H 02/27/19 07:57 HCO3 21.7 mEq/L (20.0-26.0) 02/27/19 07:57 Base Excess -2.4 mEq/L (-3.0-3.0) 02/27/19 07:57 O2 Saturation 98.5 % (92.0-100.0) 02/27/19 07:57 Yeison Test N/A 02/27/19 07:57 Vent Rate 10 02/27/19 07:57 Inspired O2 30 02/27/19 07:57 Tidal Volume 450 02/27/19 07:57 PEEP 5 02/27/19 07:57 Pressure (ins/psv/peep) 10 02/27/19 07:57 Critical Value DM 02/27/19 07:57 Sodium 138 mEq/L (136-145) 03/01/19 06:00 Potassium 3.1 mEq/L (3.5-5.1) L 03/01/19 06:00 Chloride 97 mEq/L (98-107) L 03/01/19 06:00 Carbon Dioxide 30.0 mEq/L (21.0-31.0) 03/01/19 06:00 Anion Gap 14.1 (7.0-16.0) 03/01/19 06:00 BUN 56 mg/dL (7-25) H 03/01/19 06:00 Creatinine 2.9 mg/dL (0.7-1.3) H 03/01/19 06:00 Est GFR ( Amer) TNP 03/01/19 06:00 Est GFR (Non-Af Amer) TNP 03/01/19 06:00 BUN/Creatinine Ratio 19.3 03/01/19 06:00 Glucose 153 mg/dL (70-105) H 03/01/19 06:00 POC Glucose 169 MG/DL (70 - 105) H 03/01/19 11:49 Whole Bld Lactic Acid 0.69 mmol/L (0.60-1.99) 02/26/19 06:05 Calcium 8.9 mg/dL (8.6-10.3) 03/01/19 06:00 Magnesium 2.1 mg/dL (1.9-2.7) 02/28/19 04:50 Total Bilirubin 0.4 mg/dL (0.3-1.0) 03/01/19 06:00 Direct Bilirubin 0.16 mg/dL (0.0-0.2) 02/27/19 04:45 AST 17 U/L (13-39) 03/01/19 06:00 ALT 21 U/L (7-52) 03/01/19 06:00 Alkaline Phosphatase 96 U/L (34-104) 03/01/19 06:00 Ammonia 53 umol/L (16-53) 02/27/19 04:45 Total Protein 5.9 gm/dL (6.0-8.3) L 03/01/19 06:00 Albumin 2.6 gm/dL (4.2-5.5) L 03/01/19 06:00 Globulin 3.3 gm/dL 03/01/19 06:00 Albumin/Globulin Ratio 0.8 (1.0-1.8) L 03/01/19 06:00 TSH 2.68 uIU/ml (0.34-5.60) 02/27/19 04:45 Stool Occult Blood NEGATIVE (NEGATIVE) 03/01/19 05:45 Random Vancomycin 29.2 ug/mL (5.0-40.0) 03/01/19 06:00 Blood Type O POSITIVE 02/28/19 14:25 Antibody Screen NEGATIVE 02/28/19 14:25 Crossmatch See Detail 02/28/19 14:25 - Physical Exam Vitals and I&O: Vital Signs Temp 97.8 F 03/01/19 12:00 Pulse 86 03/01/19 13:00 Resp 16 03/01/19 12:00 BP 144/71 03/01/19 12:00 Pulse Ox 99 03/01/19 13:00 Intake & Output 02/28/19 03/01/19 03/01/19 18:59 06:59 18:59 Intake Total 580 680 50 Output Total 200 50 Balance 380 630 50 Weight (lbs) 68.946 kg 68.991 kg Intake: Intake, IV Amount 100 100 50 Piperacillin Sodium/ 100 100 50 Tazobact 2.25 gm In Sodium Chloride 0.9% 50 ml @ 100 mls/hr IV Q6H [facility] Rx#:[id number] Tube Feeding 480 460 Other 120 Output: Urine 0 0 Stool 200 50 Other: Stool Characteristics Liquid Liquid Liquid Brown Brown Brown Weight Source Bedscale Bedscale Active Medications: Current Medications Acetaminophen (Tylenol 650mg/20.3ml Suspension) 650 mg GT Q6H PRN PRN Reason: Fever >101 Stop: 04/27/19 01:35 Last Admin: 02/26/19 23:38 Dose: 650 mg Acetaminophen (Tylenol) 650 mg GT Q4HR PRN PRN Reason: Pain or Fever >101 Stop: 04/27/19 05:39 Last Admin: 02/26/19 17:54 Dose: 650 mg Albuterol/Ipratropium (Duoneb Neb) 3 ml HHN Q2HRT PRN PRN Reason: Shortness of Breath Stop: 04/27/19 05:39 Albuterol/Ipratropium (Duoneb Neb) 3 ml HHN Q4HRT [facility] Stop: 04/27/19 14:59 Last Admin: 03/01/19 10:56 Dose: 3 ml Amlodipine Besylate (Norvasc) 5 mg GT DAILY [facility] Stop: 04/27/19 08:59 Last Admin: 03/01/19 08:53 Dose: 5 mg Artificial Tears (Artificial Tears Ophth Soln) 1 drop EACH EYE BID [facility] Stop: 04/27/19 08:59 Last Admin: 03/01/19 08:51 Dose: 1 drop Ascorbic Acid (Vitamin C) 500 mg GT DAILY [facility] Stop: 04/27/19 08:59 Last Admin: 03/01/19 08:51 Dose: 500 mg Atorvastatin Calcium (Lipitor) 40 mg GT HS [facility] Stop: 04/27/19 20:59 Last Admin: 02/28/19 20:37 Dose: 40 mg Budesonide (Pulmicort) 0.5 mg HHN BIDRT [facility] Stop: 04/27/19 18:59 Last Admin: 03/01/19 07:42 Dose: 0.5 mg [place] Oil/[place] Balsam/Trypsin (Venelex) 1 appl TP BID [facility] Stop: 04/27/19 09:14 Last Admin: 03/01/19 08:51 Dose: 1 appl Chlorhexidine Gluconate (Peridex) 15 ml MM 0800,1999 [facility] Stop: 04/27/19 07:59 Last Admin: 03/01/19 08:19 Dose: 15 ml Dextrose (D50w) 50 ml IVP PRN PRN PRN Reason: Blood Glucose less than 70 Stop: 04/27/19 00:25 Dextrose (Glutose 40%) 18.75 gm PO PRN PRN PRN Reason: Blood Glucose less than 70 Stop: 04/27/19 00:25 Epoetin [place] (Epogen) 6,000 units SUBQ MoWeFr [facility] Stop: 04/27/19 14:59 Last Admin: 02/26/19 18:00 Dose: Not Given Folic Acid (Folate) 1 mg GT DAILY [facility] Stop: 04/27/19 08:59 Last Admin: 03/01/19 08:51 Dose: 1 mg Glucagon (Glucagen) 1 mg IM PRN PRN PRN Reason: Blood Glucose less than 70 Stop: 04/27/19 00:25 Norepinephrine Bitartrate 4 mg (/ Dextrose) 254 mls @ 0 mls/hr IV TITR PRN; Protocol PRN Reason: BP MAINTENANCE (PER PROTOCOL) Stop: 04/27/19 00:34 Last Titration: 02/26/19 07:39 Dose: 0 mcg/min, 0 mls/hr Piperacillin Sod/Tazobactam (Sod 2.25 gm/ Sodium Chloride) 50 mls @ 100 mls/hr IV Q6H [facility] Stop: 04/27/19 07:59 Last Infusion: 03/01/19 08:47 Dose: Infused Insulin Glargine (Lantus Insulin) 20 units SUBQ Q12HR [facility] Stop: 04/27/19 20:59 Last Admin: 03/01/19 08:54 Dose: 20 units Insulin Human Lispro (Humalog Insulin Sliding Scale) 0 units SUBQ Q6HR [facility]; Protocol Stop: 04/27/19 05:59 Last Admin: 03/01/19 11:55 Dose: 2 units Lactobacillus Rhamnosus (Culturelle 15b) 1 each PO DAILY [facility] Stop: 04/28/19 08:59 Last Admin: 03/01/19 08:51 Dose: 1 each Lactulose (Cephulac) 30 gm GT DAILY PRN PRN Reason: Constipation Levetiracetam (Keppra) 750 mg PO Q12H [facility] Stop: 04/27/19 08:59 Last Admin: 03/01/19 08:54 Dose: 750 mg Magnesium Oxide (Mag-Oxide) 400 mg GT DAILY [facility] Stop: 04/27/19 08:59 Last Admin: 03/01/19 08:52 Dose: 400 mg Metoclopramide HCl (Reglan) 5 mg GT Q6H [facility] Stop: 04/27/19 07:59 Last Admin: 03/01/19 08:19 Dose: 5 mg Metoprolol Tartrate (Lopressor) 25 mg GT BID [facility] Stop: 04/27/19 08:59 Last Admin: 03/01/19 08:52 Dose: 25 mg Miscellaneous (Zosyn Iv Per Pharmacy) 1 ea PRN PRN PRN Reason: PROTOCOL Stop: 04/26/19 21:23 Miscellaneous (Vancomycin Iv Per Pharmacy) 1 [facility] PRN PRN PRN Reason: PROTOCOL Stop: 04/27/19 06:05 Miscellaneous (Probiotic Screen) 1 [facility] PRN PRN PRN Reason: PROTOCOL Stop: 04/27/19 13:03 Miscellaneous (Vte Chemical Prophylaxis Screen/ Admission) 1 [facility] PRN PRN PRN Reason: PROTOCOL Stop: 04/27/19 13:10 Pantoprazole Sodium (Protonix) 40 mg GT DAILY [facility] Stop: 04/27/19 08:59 Last Admin: 03/01/19 08:54 Dose: 40 mg Vancomycin HCl (Vancomycin Oral) 250 mg PO QID [facility] Stop: 04/28/19 08:59 Last Admin: 03/01/19 08:58 Dose: 250 mg General: Alert, No acute distress Neck: Supple, Other (s/p tracheostomy) Cardiovascular: Other (irregularly irregular) Lungs: Clear to auscultation Abdomen: Bowel sounds, Soft Extremities: Edema, no Clubbing, no Cyanosis Skin: Breakdown (sacral decubitus ) - Procedures Procedures: Procedures Procedure Code Date RESPIRATORY VENTILATION, 24-96 CONSECUTIVE HOURS [id number] 02/25/19 Assessment/Plan - Assessment Assessment: Septic shock Hypotension Chronic respiratory failure on ventilator with tracheostomy Aspiration pneumonia pseudomonas Ventricular tachycardia Atrial fibrillation converted to normal sinus rhythm C. difficile colitis Seizure disorder CVA with left affect [facility] states Friday end-stage renal disease on dialysis Dementia 9 deficiency anemia Sacral decubitus ulcer Dysphagia with PEG placement protein calorie malnutrition - Plan Plan: Transfusion with dialysis IV antibiotics continue same treatment patient off and all vasopressors Nutritional Asmnt/Malnutr-PDOC - Dietary Evaluation Malnutrition Findings (Please click <Entered> for more info): Nutritional Asmnt/Malnutrition Start: 02/26/19 16: 42 Text: Status: Complete Freq: Protocol: Document 02/26/19 16:42 [email or web address] (Rec: 02/26/19 17:14 [email or web address] [id number]) Nutritional Asmnt/Malnutrition Patient General Information Nutritional Screening High Risk Consult Diagnosis AMS after HD, PNA, septic shock, hypotension Pertinent Medical Hx/Surgical Hx ESRD on HD, CVA, functional quadriplegia, DM, HTN, HLD, dysphagia s/p GT, sacral decubitus, hx of C.diff Subjective Information Pt on pressor and vent support , on trach, Nepro at 40 ml/hr upon visit, tolerating TF with no GRV per RN, +diarrhea, rectal tube placed. Pt on multiple abx. +unstageable sacrum, recommended TF meets 95% RDI. No family at bedside, unable to assess nutrition intake hx or wt hx. RN made aware of recs, states verbal order for 1500ml fluid restriction. Pending HD 02/27. Wt obtained by bedscale. Will reassess kcal needs once pt off vent support. Current Diet Order/ Nutrition Support Nepro at 40ml/hr x 20 hours= 800ml, 1440kcal, 65g protein, 581ml free water Patient / S.O Not Indicated Pertinent Medications vitamin C 500mg, Lipitor, folic acid, Levemir, Humalog, magnesium oxide, Reglan Q6h, norepinephrine, IV abx, Protonix, lactulose PRN Pertinent Labs (02/26) BUN 55, Cr 2.7, Glu 87, Alk Phos 106, Alb 3.3 Nutritional Hx/Data Height 1.68 m Height (Calculated Centimeters) 167.6 Current Weight (lbs) 68.492 kg Weight (Calculated Kilograms) 68.5 Weight (Calculated Grams) 74451.4 [place] Body Weight 142 lb Body Mass Index (BMI) 24.3 Weight Status Approriate GI Symptoms GI Symptoms Diarrhea Last BM 02/26 Difficult in: Swallowing Skin Integrity/Comment: unstageable sacrum Estimated Nutritional Goals BEE in Kcals: Adj wt of IBW Calories/Kcals/Kg 1717-8466 kcal Kcals Calculated 25-30 kcal/kg Protein: Adj wt of IBW Protein g/k-91g Protein Calculated 1.1-1.4 g/kg Fluid: ml 1000ml+UOP (dialysis) Nutritional Problem 2. Problem Problem Increased nutrient needs Etiology wound healing, ESRD Signs/Symptoms: unstageable sacrum, on HD 1. Problem Problem Inadequate enteral infusion Etiology new admit Signs/Symptoms: Nepro at 40ml/hr x 20 hours meets 89% kcal, 90% protein needs (suboptimal). Intervention/Recommendation Comments 1. Increase Nepro to 45 ml/hr goal rate x 20 hours= 900ml, 1620kcal, 73g protein, 654ml free water; meets 100% estimated kcal/protein needs 2. Consider water flush 100ml Q6h per MD 3. F/U as high risk in 2-3 days Expected Outcomes/Goals Expected Outcomes/Goals 1. Pt to meet at least 90% of nutritional needs via nutrition support with tolerance 2. Monitor TF rate, tolerance, wt, skin integrity and labs Mera Kaplan RD
--- NOTE | 2019-03-01 14:54 | General Progress Note ---
Subjective - Review of Systems Service Date: 03/01/19 Events since last encounter: REMAINS MECHANICALLY VENTILATED VIA TRACH S/P DIALYSIS TODAY WITH 2 UNITS PRBCS Subjective: TRYING TO COMMUNICATE, NO DISTRESS Objective - Results Result Diagrams: 03/01/19 06:00 03/01/19 06:00 Recent Labs: Laboratory Last Values WBC 10.4 Th/cmm (4.8-10.8) 03/01/19 06:00 RBC 2.19 Mil/cmm (3.80-5.80) L 03/01/19 06:00 Hgb 6.7 gm/dL (12-16) L* 03/01/19 06:00 Hct 21.4 % (41.0-60) L 03/01/19 06:00 MCV 97.5 fl (80-99) 03/01/19 06:00 MCH 30.7 pg (27.0-31.0) 03/01/19 06:00 MCHC Differential 31.5 pg (28.0-36.0) 03/01/19 06:00 RDW 18.6 % (11.5-20.0) 03/01/19 06:00 Plt Count 193 Th/cmm (150-400) 03/01/19 06:00 MPV 9.2 fl 03/01/19 06:00 Add Manual Diff YES 02/26/19 04:45 Neutrophils % 76.4 % (40.0-80.0) 03/01/19 06:00 Band Neutrophils % 0 % (0-10) 02/26/19 04:45 Lymphocytes % 11.2 % (20.0-50.0) L 03/01/19 06:00 Monocytes % 7.6 % (2.0-10.0) 03/01/19 06:00 Eosinophils % 4.4 % (0.0-5.0) 03/01/19 06:00 Basophils % 0.4 % (0.0-2.0) 03/01/19 06:00 Neutrophils (Manual) 86 % (40-80) H 02/26/19 04:45 Lymphocytes 7 % (20-50) L 02/26/19 04:45 Monocytes 5 % (2-10) 02/26/19 04:45 Eosinophils 2 % (0-5) 02/26/19 04:45 Basophils 0 % (0-3) 02/26/19 04:45 Platelet Estimate ADEQUATE (NORMAL) 02/26/19 04:45 PT 11.0 SECONDS (9.5-11.5) 02/26/19 04:45 INR 1.06 (0.5-1.4) 02/26/19 04:45 Specimen Source Arterial 02/27/19 07:57 Sample Site LB 02/27/19 07:57 pH 7.402 (7.35-7.45) 02/27/19 07:57 pCO2 35.6 mmHg (35.0-45.0) 02/27/19 07:57 pO2 125.9 mmHg (80.0-100.0) H 02/27/19 07:57 HCO3 21.7 mEq/L (20.0-26.0) 02/27/19 07:57 Base Excess -2.4 mEq/L (-3.0-3.0) 02/27/19 07:57 O2 Saturation 98.5 % (92.0-100.0) 02/27/19 07:57 Yeison Test N/A 02/27/19 07:57 Vent Rate 10 02/27/19 07:57 Inspired O2 30 02/27/19 07:57 Tidal Volume 450 02/27/19 07:57 PEEP 5 02/27/19 07:57 Pressure (ins/psv/peep) 10 02/27/19 07:57 Critical Value DM 02/27/19 07:57 Sodium 138 mEq/L (136-145) 03/01/19 06:00 Potassium 3.1 mEq/L (3.5-5.1) L 03/01/19 06:00 Chloride 97 mEq/L (98-107) L 03/01/19 06:00 Carbon Dioxide 30.0 mEq/L (21.0-31.0) 03/01/19 06:00 Anion Gap 14.1 (7.0-16.0) 03/01/19 06:00 BUN 56 mg/dL (7-25) H 03/01/19 06:00 Creatinine 2.9 mg/dL (0.7-1.3) H 03/01/19 06:00 Est GFR ( Amer) TNP 03/01/19 06:00 Est GFR (Non-Af Amer) TNP 03/01/19 06:00 BUN/Creatinine Ratio 19.3 03/01/19 06:00 Glucose 153 mg/dL (70-105) H 03/01/19 06:00 POC Glucose 169 MG/DL (70 - 105) H 03/01/19 11:49 Whole Bld Lactic Acid 0.69 mmol/L (0.60-1.99) 02/26/19 06:05 Calcium 8.9 mg/dL (8.6-10.3) 03/01/19 06:00 Magnesium 2.1 mg/dL (1.9-2.7) 02/28/19 04:50 Total Bilirubin 0.4 mg/dL (0.3-1.0) 03/01/19 06:00 Direct Bilirubin 0.16 mg/dL (0.0-0.2) 02/27/19 04:45 AST 17 U/L (13-39) 03/01/19 06:00 ALT 21 U/L (7-52) 03/01/19 06:00 Alkaline Phosphatase 96 U/L (34-104) 03/01/19 06:00 Ammonia 53 umol/L (16-53) 02/27/19 04:45 Total Protein 5.9 gm/dL (6.0-8.3) L 03/01/19 06:00 Albumin 2.6 gm/dL (4.2-5.5) L 03/01/19 06:00 Globulin 3.3 gm/dL 03/01/19 06:00 Albumin/Globulin Ratio 0.8 (1.0-1.8) L 03/01/19 06:00 TSH 2.68 uIU/ml (0.34-5.60) 02/27/19 04:45 Stool Occult Blood NEGATIVE (NEGATIVE) 03/01/19 05:45 Random Vancomycin 29.2 ug/mL (5.0-40.0) 03/01/19 06:00 Blood Type O POSITIVE 02/28/19 14:25 Antibody Screen NEGATIVE 02/28/19 14:25 Crossmatch See Detail 02/28/19 14:25 - Physical Exam Vitals and I&O: Vital Signs Temp 97.8 F 03/01/19 12:00 Pulse 94 03/01/19 14:00 Resp 20 03/01/19 14:00 BP 152/73 03/01/19 14:00 Pulse Ox 99 03/01/19 14:00 Intake & Output 02/28/19 03/01/19 03/01/19 18:59 06:59 18:59 Intake Total 580 680 50 Output Total 200 50 Balance 380 630 50 Weight (lbs) 68.946 kg 68.991 kg Intake: Intake, IV Amount 100 100 50 Piperacillin Sodium/ 100 100 50 Tazobact 2.25 gm In Sodium Chloride 0.9% 50 ml @ 100 mls/hr IV Q6H [facility] Rx#:[id number] Tube Feeding 480 460 Other 120 Output: Urine 0 0 Stool 200 50 Other: Stool Characteristics Liquid Liquid Liquid Brown Brown Brown Weight Source Bedscale Bedscale Active Medications: Current Medications Acetaminophen (Tylenol 650mg/20.3ml Suspension) 650 mg GT Q6H PRN PRN Reason: Fever >101 Stop: 04/27/19 01:35 Last Admin: 02/26/19 23:38 Dose: 650 mg Acetaminophen (Tylenol) 650 mg GT Q4HR PRN PRN Reason: Pain or Fever >101 Stop: 04/27/19 05:39 Last Admin: 02/26/19 17:54 Dose: 650 mg Albuterol/Ipratropium (Duoneb Neb) 3 ml HHN Q2HRT PRN PRN Reason: Shortness of Breath Stop: 04/27/19 05:39 Albuterol/Ipratropium (Duoneb Neb) 3 ml HHN Q4HRT [facility] Stop: 04/27/19 14:59 Last Admin: 03/01/19 10:56 Dose: 3 ml Amlodipine Besylate (Norvasc) 5 mg GT DAILY AMANDA Stop: 04/27/19 08:59 Last Admin: 03/01/19 08:53 Dose: 5 mg Artificial Tears (Artificial Tears Ophth Soln) 1 drop EACH EYE BID [facility] Stop: 04/27/19 08:59 Last Admin: 03/01/19 08:51 Dose: 1 drop Ascorbic Acid (Vitamin C) 500 mg GT DAILY AMANDA Stop: 04/27/19 08:59 Last Admin: 03/01/19 08:51 Dose: 500 mg Atorvastatin Calcium (Lipitor) 40 mg GT HS [facility] Stop: 04/27/19 20:59 Last Admin: 02/28/19 20:37 Dose: 40 mg Budesonide (Pulmicort) 0.5 mg HHN BIDRT [facility] Stop: 04/27/19 18:59 Last Admin: 03/01/19 07:42 Dose: 0.5 mg [place] [employer] Balsam/Trypsin (Venelex) 1 appl TP BID [facility] Stop: 04/27/19 09:14 Last Admin: 03/01/19 08:51 Dose: 1 appl Chlorhexidine Gluconate (Peridex) 15 ml MM 0800,1999 [facility] Stop: 04/27/19 07:59 Last Admin: 03/01/19 08:19 Dose: 15 ml Dextrose (D50w) 50 ml IVP PRN PRN PRN Reason: Blood Glucose less than 70 Stop: 04/27/19 00:25 Dextrose (Glutose 40%) 18.75 gm PO PRN PRN PRN Reason: Blood Glucose less than 70 Stop: 04/27/19 00:25 Epoetin [place] (Epogen) 6,000 units SUBQ MoWeFr [facility] Stop: 04/27/19 14:59 Last Admin: 02/26/19 18:00 Dose: Not Given Folic Acid (Folate) 1 mg GT DAILY [facility] Stop: 04/27/19 08:59 Last Admin: 03/01/19 08:51 Dose: 1 mg Glucagon (Glucagen) 1 mg IM PRN PRN PRN Reason: Blood Glucose less than 70 Stop: 04/27/19 00:25 Norepinephrine Bitartrate 4 mg (/ Dextrose) 254 mls @ 0 mls/hr IV TITR PRN; Protocol PRN Reason: BP MAINTENANCE (PER PROTOCOL) Stop: 04/27/19 00:34 Last Titration: 02/26/19 07:39 Dose: 0 mcg/min, 0 mls/hr Piperacillin Sod/Tazobactam (Sod 2.25 gm/ Sodium Chloride) 50 mls @ 100 mls/hr IV Q6H [facility] Stop: 04/27/19 07:59 Last Admin: 03/01/19 14:28 Dose: 100 mls/hr Insulin Glargine (Lantus Insulin) 20 units SUBQ Q12HR [facility] Stop: 04/27/19 20:59 Last Admin: 03/01/19 08:54 Dose: 20 units Insulin Human Lispro (Humalog Insulin Sliding Scale) 0 units SUBQ Q6HR [facility]; Protocol Stop: 04/27/19 05:59 Last Admin: 03/01/19 11:55 Dose: 2 units Lactobacillus Rhamnosus (Culturelle 15b) 1 each PO DAILY [facility] Stop: 04/28/19 08:59 Last Admin: 03/01/19 08:51 Dose: 1 each Lactulose (Cephulac) 30 gm GT DAILY PRN PRN Reason: Constipation Levetiracetam (Keppra) 750 mg PO Q12H [facility] Stop: 04/27/19 08:59 Last Admin: 03/01/19 08:54 Dose: 750 mg Magnesium Oxide (Mag-Oxide) 400 mg GT DAILY AMANDA Stop: 04/27/19 08:59 Last Admin: 03/01/19 08:52 Dose: 400 mg Metoclopramide HCl (Reglan) 5 mg GT Q6H [facility] Stop: 04/27/19 07:59 Last Admin: 03/01/19 13:10 Dose: 5 mg Metoprolol Tartrate (Lopressor) 25 mg GT BID [facility] Stop: 04/27/19 08:59 Last Admin: 03/01/19 08:52 Dose: 25 mg Miscellaneous (Zosyn Iv Per Pharmacy) 1 [facility] PRN PRN PRN Reason: PROTOCOL Stop: 04/26/19 21:23 Miscellaneous (Vancomycin Iv Per Pharmacy) 1 [facility] PRN PRN PRN Reason: PROTOCOL Stop: 04/27/19 06:05 Miscellaneous (Probiotic Screen) 1 [facility] PRN PRN PRN Reason: PROTOCOL Stop: 04/27/19 13:03 Miscellaneous (Vte [employer] Prophylaxis Screen/ Admission) 1 [facility] PRN PRN PRN Reason: PROTOCOL Stop: 04/27/19 13:10 Pantoprazole Sodium (Protonix) 40 mg GT DAILY AMANDA Stop: 04/27/19 08:59 Last Admin: 03/01/19 08:54 Dose: 40 mg Vancomycin HCl (Vancomycin Oral) 250 mg PO QID [facility] Stop: 04/28/19 08:59 Last Admin: 03/01/19 13:10 Dose: 250 mg General: Alert, No acute distress Neck: Supple, Other (s/p tracheostomy) Cardiovascular: Other (irregularly irregular) Lungs: Clear to auscultation Abdomen: Bowel sounds, Soft Extremities: Edema, no Clubbing, no Cyanosis Skin: Breakdown (sacral decubitus ) Other physical findings: RIGHT IJ PERMACATH + G TUBE - Procedures Procedures: Procedures Procedure Code Date RESPIRATORY VENTILATION, 24-96 CONSECUTIVE HOURS [id number] 02/25/19 Assessment/Plan - Assessment Assessment: ESRD/DIALYSIS STATUS ANEMIA ACUTE ON CHRONIC W ESRD VENT DEPENDENT RESPIRATORY FAILURE SEVERE SEPSIS HX CVA W CHRONIC ENCEPHALOPATHY PNA - Plan Plan: HD TODAY WITH 2 UNITS PRBCS, USUAL SCHEDULE IS TTS EPOGEN ABX SUPPORTIVE MGMT Nutritional Asmnt/Malnutr-PDOC - Dietary Evaluation Malnutrition Findings (Please click <Entered> for more info): Nutritional Asmnt/Malnutrition Start: 02/26/19 16: 42 Text: Status: Complete Freq: Protocol: Document 02/26/19 16:42 [email or web address] (Rec: 02/26/19 17:14 [email or web address]) Nutritional Asmnt/Malnutrition Patient General Information Nutritional Screening High Risk Consult Diagnosis AMS after HD, PNA, septic shock, hypotension Pertinent Medical Hx/Surgical Hx ESRD on HD, CVA, functional quadriplegia, DM, HTN, HLD, dysphagia s/p GT, sacral decubitus, hx of C.diff Subjective Information Pt on pressor and vent support , on trach, Nepro at 40 ml/hr upon visit, tolerating TF with no GRV per RN, +diarrhea, rectal tube placed. Pt on multiple abx. +unstageable sacrum, recommended TF meets 95% RDI. No family at bedside, unable to assess nutrition intake hx or wt hx. RN made aware of recs, states verbal order for 1500ml fluid restriction. Pending HD 02/27. Wt obtained by bedscale. Will reassess kcal needs once pt off vent support. Current Diet Order/ Nutrition Support Nepro at 40ml/hr x 20 hours= 800ml, 1440kcal, 65g protein, 581ml free water Patient / S.O Not Indicated Pertinent Medications vitamin C 500mg, Lipitor, folic acid, Levemir, Humalog, magnesium oxide, Reglan Q6h, norepinephrine, IV abx, Protonix, lactulose PRN Pertinent Labs (02/26) BUN 55, Cr 2.7, Glu 87, Alk Phos 106, Alb 3.3 Nutritional Hx/Data Height 1.68 m Height (Calculated Centimeters) 167.6 Current Weight (lbs) 68.492 kg Weight (Calculated Kilograms) 68.5 Weight (Calculated Grams) 34293.4 [place] Body Weight 142 lb Body Mass Index (BMI) 24.3 Weight Status Approriate GI Symptoms GI Symptoms Diarrhea Last BM 02/26 Difficult in: Swallowing Skin Integrity/Comment: unstageable sacrum Estimated Nutritional Goals BEE in Kcals: Adj wt of IBW Calories/Kcals/Kg 8805-9410 kcal Kcals Calculated 25-30 kcal/kg Protein: Adj wt of IBW Protein g/k-91g Protein Calculated 1.1-1.4 g/kg Fluid: ml 1000ml+UOP (dialysis) Nutritional Problem 2. Problem Problem Increased nutrient needs Etiology wound healing, ESRD Signs/Symptoms: unstageable sacrum, on HD 1. Problem Problem Inadequate enteral infusion Etiology new admit Signs/Symptoms: Nepro at 40ml/hr x 20 hours meets 89% kcal, 90% protein needs (suboptimal). Intervention/Recommendation Comments 1. Increase Nepro to 45 ml/hr goal rate x 20 hours= 900ml, 1620kcal, 73g protein, 654ml free water; meets 100% estimated kcal/protein needs 2. Consider water flush 100ml Q6h per MD 3. F/U as high risk in 2-3 days Expected Outcomes/Goals Expected Outcomes/Goals 1. Pt to meet at least 90% of nutritional needs via nutrition support with tolerance 2. Monitor TF rate, tolerance, wt, skin integrity and labs Mera Kaplan RD
[2019-03-02] MEDS ORDERED: Albumin 25% 25gm/100mL 25 GM/100 ML BTL IV PRN
[2019-03-02] MEDS ORDERED: Heparin Sod 5,000Units/ML 5,000 UNITS/ML VIAL HD SCH
[2019-03-02] MEDS ORDERED: Sodium Chloride 0.9% 500 ML IV PRN
[2019-03-02] MEDS: INSULIN LISPRO SLIDING SCALE 100 UNITS/ML UNIT SUBQ SCH ×4 (00:37→17:43)
[2019-03-02] MEDS: Piperacillin/Tazobact 2.25 gm in 0.9% NS 50 ML IV SCH ×4 (01:52→15:30)
[2019-03-02] MEDS: Albuterol/Ipratropium Neb 3 ML AERS HHN SCH ×4 (03:44→15:23)
[2019-03-02 04:56] LABS: % BASOPHILS 0.3 % (0.0-2.0); % EOSINOPHILS 5.3 % (0.0-5.0); % LYMPHOCYTES 13.7 % (20.0-50.0); % MONOCYTES 7.7 % (2.0-10.0); EOSINOPHILE ABSOLUTE 0.5 Th/cmm (0.1-0.4); HEMOGLOBIN 8.8 gm/dL (12-16); LYMPHOCYTE ABSOLUTE 1.3 Th/cmm (1.5-3.0); MEAN CELL VOLUME 91.3 fl (80-99); MEAN CORPUSCULAR HEMOGLOBIN 30.2 pg (27.0-31.0); MEAN CORPUSCULAR HGB CONC 33.1 pg (28.0-36.0); MEAN PLATELET VOLUME 8.3 fl; MONOCYTE ABSOLUTE 0.7 Th/cmm (0.3-1.0); NEUTROPHILE ABSOLUTE 6.8 Th/cmm (1.8-8.0); PLATELET COUNT 204 Th/cmm (150-400); RED CELL DISTRIBUTION WIDTH 16.9 % (11.5-20.0); WHITE BLOOD COUNT 9.3 Th/cmm (4.8-10.8)
--- NOTE | 2019-03-02 05:26 | Progress Notes ---
DATE: 03/01/2019 PULMONARY/CRITICAL CARE PROGRESS NOTE PROBLEM LIST: 1. Acute sepsis, improving. 2. Acute on chronic renal failure. SYMPTOMS: Nil. The patient is little bit more awake, though not too much communicative, meaningful communication could be done. No respiratory distress, etc. No other symptomatology, currently undergoing dialysis. PHYSICAL EXAMINATION: VITAL SIGNS: The patient's recorded vitals: Temperature is 97.8, heart rate is in 80s, BP 144/71, saturation is 100. NECK: Veins not visualized. CHEST: Shows diminished air entry with occasional rhonchi. HEART: Regular. ABDOMEN: Soft, nontender. LABORATORY DATA: The patient's white count is 10.4, trending better. Hemoglobin 6.7. Electrolytes shows potassium 3.1 and creatinine is 2.9. Chest x-ray, no major changes, some generalized mild haziness in the right side, otherwise unremarkable. ASSESSMENT: The patient is clinically stable, drop of hemoglobin, exact reason not clear. PLANS AND SUGGESTIONS: I have discussed with dialysis nurse to take fluid out while on dialysis. Continue rest of other treatment, etc. We will repeat lab and ABG, etc., tomorrow. JOB# [id number]
[2019-03-02 05:39] LABS: HEMATOCRIT 26.5 % (41.0-60)
[2019-03-02 05:48] LABS: ALB/GLOB RATIO 0.8 (1.0-1.8); ALBUMIN 2.8 gm/dL (4.2-5.5); ALKALINE PHOSPHATASE 107 U/L (34-104); ANION GAP 12.6 (7.0-16.0); BILIRUBIN,DIRECT 0.19 mg/dL (0.0-0.2); BILIRUBIN,TOTAL 0.6 mg/dL (0.3-1.0); BUN - UREA NITROGEN 34 mg/dL (7-25); CALCIUM SERUM 8.9 mg/dL (8.6-10.3); CHLORIDE 95 mEq/L (98-107); GLUCOSE 134 mg/dL (70-105); SGOT 24 U/L (13-39); SGPT/ALT 29 U/L (7-52); SODIUM SERUM 136 mEq/L (136-145); TOTAL PROTEIN,SERUM 6.2 gm/dL (6.0-8.3)
[2019-03-02 06:05] LABS: POTASSIUM SERUM 2.6 mEq/L (3.5-5.1)
[2019-03-02] MEDS: Budesonide 0.5 Mg/2 mL Ud HHN SCH (07:36)
--- NOTE | 2019-03-02 07:40 | General Progress Note ---
Subjective - Review of Systems Service Date: 03/02/19 Subjective: Patient was seen and examined. Awake, alert, responsive to verbal stimuli. no acute distress. Opens eyes. Patient doing better today. for dialysis today. Potassium 2.6. Objective - Results Result Diagrams: 03/02/19 04:10 03/02/19 04:10 Recent Labs: Laboratory Last Values WBC 9.3 Th/cmm (4.8-10.8) 03/02/19 04:10 RBC 2.90 Mil/cmm (3.80-5.80) L 03/02/19 04:10 Hgb 8.8 gm/dL (12-16) L 03/02/19 04:10 Hct 26.5 % (41.0-60) L D 03/02/19 04:10 MCV 91.3 fl (80-99) 03/02/19 04:10 MCH 30.2 pg (27.0-31.0) 03/02/19 04:10 MCHC Differential 33.1 pg (28.0-36.0) 03/02/19 04:10 RDW 16.9 % (11.5-20.0) 03/02/19 04:10 Plt Count 204 Th/cmm (150-400) 03/02/19 04:10 MPV 8.3 fl 03/02/19 04:10 Add Manual Diff YES 02/26/19 04:45 Neutrophils % 73.0 % (40.0-80.0) 03/02/19 04:10 Band Neutrophils % 0 % (0-10) 02/26/19 04:45 Lymphocytes % 13.7 % (20.0-50.0) L 03/02/19 04:10 Monocytes % 7.7 % (2.0-10.0) 03/02/19 04:10 Eosinophils % 5.3 % (0.0-5.0) H 03/02/19 04:10 Basophils % 0.3 % (0.0-2.0) 03/02/19 04:10 Neutrophils (Manual) 86 % (40-80) H 02/26/19 04:45 Lymphocytes 7 % (20-50) L 02/26/19 04:45 Monocytes 5 % (2-10) 02/26/19 04:45 Eosinophils 2 % (0-5) 02/26/19 04:45 Basophils 0 % (0-3) 02/26/19 04:45 Platelet Estimate ADEQUATE (NORMAL) 02/26/19 04:45 PT 11.0 SECONDS (9.5-11.5) 02/26/19 04:45 INR 1.06 (0.5-1.4) 02/26/19 04:45 Specimen Source Arterial 02/27/19 07:57 Sample Site LB 02/27/19 07:57 pH 7.402 (7.35-7.45) 02/27/19 07:57 pCO2 35.6 mmHg (35.0-45.0) 02/27/19 07:57 pO2 125.9 mmHg (80.0-100.0) H 02/27/19 07:57 HCO3 21.7 mEq/L (20.0-26.0) 02/27/19 07:57 Base Excess -2.4 mEq/L (-3.0-3.0) 02/27/19 07:57 O2 Saturation 98.5 % (92.0-100.0) 02/27/19 07:57 Yeison Test N/A 02/27/19 07:57 Vent Rate 10 02/27/19 07:57 Inspired O2 30 02/27/19 07:57 Tidal Volume 450 02/27/19 07:57 PEEP 5 02/27/19 07:57 Pressure (ins/psv/peep) 10 02/27/19 07:57 Critical Value DM 02/27/19 07:57 Sodium 136 mEq/L (136-145) 03/02/19 04:10 Potassium 2.6 mEq/L (3.5-5.1) L* 03/02/19 04:10 Chloride 95 mEq/L (98-107) L 03/02/19 04:10 Carbon Dioxide 31.0 mEq/L (21.0-31.0) 03/02/19 04:10 Anion Gap 12.6 (7.0-16.0) 03/02/19 04:10 BUN 34 mg/dL (7-25) H 03/02/19 04:10 Creatinine 2.0 mg/dL (0.7-1.3) H 03/02/19 04:10 Est GFR ( Amer) TNP 03/02/19 04:10 Est GFR (Non-Af Amer) TNP 03/02/19 04:10 BUN/Creatinine Ratio 17.0 03/02/19 04:10 Glucose 134 mg/dL (70-105) H 03/02/19 04:10 POC Glucose 108 MG/DL (70 - 105) H 03/02/19 06:18 Whole Bld Lactic Acid 0.69 mmol/L (0.60-1.99) 02/26/19 06:05 Calcium 8.9 mg/dL (8.6-10.3) 03/02/19 04:10 Magnesium 2.1 mg/dL (1.9-2.7) 02/28/19 04:50 Total Bilirubin 0.6 mg/dL (0.3-1.0) 03/02/19 04:10 Direct Bilirubin 0.19 mg/dL (0.0-0.2) 03/02/19 04:10 AST 24 U/L (13-39) 03/02/19 04:10 ALT 29 U/L (7-52) 03/02/19 04:10 Alkaline Phosphatase 107 U/L (34-104) H 03/02/19 04:10 Ammonia 53 umol/L (16-53) 02/27/19 04:45 Total Protein 6.2 gm/dL (6.0-8.3) 03/02/19 04:10 Albumin 2.8 gm/dL (4.2-5.5) L 03/02/19 04:10 Globulin 3.4 gm/dL 03/02/19 04:10 Albumin/Globulin Ratio 0.8 (1.0-1.8) L 03/02/19 04:10 TSH 2.68 uIU/ml (0.34-5.60) 02/27/19 04:45 Stool Occult Blood NEGATIVE (NEGATIVE) 03/01/19 05:45 Random Vancomycin 21.3 ug/mL (5.0-40.0) 03/02/19 04:10 Blood Type O POSITIVE 02/28/19 14:25 Antibody Screen NEGATIVE 02/28/19 14:25 Crossmatch See Detail 02/28/19 14:25 - Physical Exam Vitals and I&O: Vital Signs Temp 98 F 03/02/19 04:00 Pulse 76 03/02/19 07:17 Resp 19 03/02/19 06:00 BP 160/83 03/02/19 06:00 Pulse Ox 99 03/02/19 07:17 Intake & Output 03/01/19 03/02/19 03/02/19 18:59 06:59 18:59 Intake Total 700 650 Output Total 1700 250 Balance -1000 400 Weight (lbs) 69.218 kg 69.173 kg Intake: Intake, IV Amount 100 50 Piperacillin Sodium/ 100 50 Tazobact 2.25 gm In Sodium Chloride 0.9% 50 ml @ 100 mls/hr IV Q6H [facility] Rx#:[id number] Tube Feeding 480 440 Other 120 160 Output: Stool 50 250 Hemodialysis 1650 Other: Stool Characteristics Liquid Liquid Brown Brown Weight Source Bedscale Bedscale Active Medications: Current Medications Acetaminophen (Tylenol 650mg/20.3ml Suspension) 650 mg GT Q6H PRN PRN Reason: Fever >101 Stop: 04/27/19 01:35 Last Admin: 02/26/19 23:38 Dose: 650 mg Acetaminophen (Tylenol) 650 mg GT Q4HR PRN PRN Reason: Pain or Fever >101 Stop: 04/27/19 05:39 Last Admin: 03/01/19 16:43 Dose: 650 mg Albuterol/Ipratropium (Duoneb Neb) 3 ml HHN Q2HRT PRN PRN Reason: Shortness of Breath Stop: 04/27/19 05:39 Albuterol/Ipratropium (Duoneb Neb) 3 ml HHN Q4HRT [facility] Stop: 04/27/19 14:59 Last Admin: 03/02/19 07:17 Dose: 3 ml Amlodipine Besylate (Norvasc) 5 mg GT DAILY [facility] Stop: 04/27/19 08:59 Last Admin: 03/01/19 08:53 Dose: 5 mg Artificial Tears (Artificial Tears Ophth Soln) 1 drop EACH EYE BID [facility] Stop: 04/27/19 08:59 Last Admin: 03/01/19 16:42 Dose: 1 drop Ascorbic Acid (Vitamin C) 500 mg GT DAILY [facility] Stop: 04/27/19 08:59 Last Admin: 03/01/19 08:51 Dose: 500 mg Atorvastatin Calcium (Lipitor) 40 mg GT HS [facility] Stop: 04/27/19 20:59 Last Admin: 03/01/19 20:37 Dose: 40 mg Budesonide (Pulmicort) 0.5 mg HHN BIDRT [facility] Stop: 04/27/19 18:59 Last Admin: 03/02/19 07:36 Dose: 0.5 mg [place] Oil/Luxembourger Balsam/Trypsin (Venelex) 1 appl TP BID [facility] Stop: 04/27/19 09:14 Last Admin: 03/01/19 16:42 Dose: 1 appl Chlorhexidine Gluconate (Peridex) 15 ml MM 08,1999 [facility] Stop: 04/27/19 07:59 Last Admin: 03/01/19 20:38 Dose: 15 ml Dextrose (D50w) 50 ml IVP PRN PRN PRN Reason: Blood Glucose less than 70 Stop: 04/27/19 00:25 Dextrose (Glutose 40%) 18.75 gm PO PRN PRN PRN Reason: Blood Glucose less than 70 Stop: 04/27/19 00:25 Epoetin [place] (Epogen) 6,000 units SUBQ TuThSa [facility] Stop: 05/01/19 14:59 Folic Acid (Folate) 1 mg GT DAILY [facility] Stop: 04/27/19 08:59 Last Admin: 03/01/19 08:51 Dose: 1 mg Glucagon (Glucagen) 1 mg IM PRN PRN PRN Reason: Blood Glucose less than 70 Stop: 04/27/19 00:25 Heparin Sodium (Porcine) (Heparin) 5,000 units HD UD [facility] Stop: 03/03/19 00:00 Last Admin: 03/02/19 00:29 Dose: Not Given Norepinephrine Bitartrate 4 mg (/ Dextrose) 254 mls @ 0 mls/hr IV TITR PRN; Protocol PRN Reason: BP MAINTENANCE (PER PROTOCOL) Stop: 04/27/19 00:34 Last Titration: 02/26/19 07:39 Dose: 0 mcg/min, 0 mls/hr Piperacillin Sod/Tazobactam (Sod 2.25 gm/ Sodium Chloride) 50 mls @ 100 mls/hr IV Q6H [facility] Stop: 04/27/19 07:59 Last Admin: 03/02/19 01:52 Dose: 100 mls/hr Albumin Human (Albuminar 25%) 25 gm in 100 mls @ 50 mls/hr IV PRN PRN PRN Reason: BP Support During HD Stop: 05/01/19 00:00 Sodium Chloride (Nacl 0.9%) 500 mls @ 0 mls/hr IV .Q0M PRN PRN Reason: BP Support During Hemodialysis Stop: 03/02/19 23:59 Insulin Glargine (Lantus Insulin) 20 units SUBQ Q12HR [facility] Stop: 04/27/19 20:59 Last Admin: 03/01/19 20:48 Dose: 20 units Insulin Human Lispro (Humalog Insulin Sliding Scale) 0 units SUBQ Q6HR [facility]; Protocol Stop: 04/27/19 05:59 Last Admin: 03/02/19 06:21 Dose: Not Given Lactobacillus Rhamnosus (Culturelle 15b) 1 each PO DAILY [facility] Stop: 04/28/19 08:59 Last Admin: 03/01/19 08:51 Dose: 1 each Lactulose (Cephulac) 30 gm GT DAILY PRN PRN Reason: Constipation Levetiracetam (Keppra) 750 mg PO Q12H [facility] Stop: 04/27/19 08:59 Last Admin: 03/01/19 20:37 Dose: 750 mg Magnesium Oxide (Mag-Oxide) 400 mg GT DAILY [facility] Stop: 04/27/19 08:59 Last Admin: 03/01/19 08:52 Dose: 400 mg Metoclopramide HCl (Reglan) 5 mg GT Q6H [facility] Stop: 04/27/19 07:59 Last Admin: 03/02/19 01:52 Dose: 5 mg Metoprolol Tartrate (Lopressor) 25 mg GT BID [facility] Stop: 04/27/19 08:59 Last Admin: 03/01/19 16:43 Dose: 25 mg Miscellaneous (Zosyn Iv Per Pharmacy) 1 ea PRN PRN PRN Reason: PROTOCOL Stop: 04/26/19 21:23 Miscellaneous (Vancomycin Iv Per Pharmacy) 1 ea PRN PRN PRN Reason: PROTOCOL Stop: 04/27/19 06:05 Miscellaneous (Probiotic Screen) 1 ea PRN PRN PRN Reason: PROTOCOL Stop: 04/27/19 13:03 Miscellaneous (Vte Chemical Prophylaxis Screen/ Admission) 1 [facility] PRN PRN PRN Reason: PROTOCOL Stop: 04/27/19 13:10 Pantoprazole Sodium (Protonix) 40 mg GT DAILY [facility] Stop: 04/27/19 08:59 Last Admin: 03/01/19 08:54 Dose: 40 mg Vancomycin HCl (Vancomycin Oral) 250 mg PO QID [facility] Stop: 04/28/19 08:59 Last Admin: 03/01/19 20:38 Dose: 250 mg General: Alert, No acute distress Neck: Supple, Other (s/p tracheostomy) Cardiovascular: Other (irregularly irregular) Lungs: Clear to auscultation Abdomen: Bowel sounds, Soft Extremities: Edema, no Clubbing, no Cyanosis Skin: Breakdown (sacral decubitus ) - Procedures Procedures: Procedures Procedure Code Date RESPIRATORY VENTILATION, 24-96 CONSECUTIVE HOURS [id number] 02/25/19 Assessment/Plan - Assessment Assessment: AMS encephalopathy leukoocytosis anemia aspiration PNA Acute on Chronic Respiratory Failure s/p tracheostomy sepsis septic shock PNA +Pseudomonas and ESBL Klebsiella and Influenzae B h/o C. Difficile h/o Karmen albicans Chronic Atrial Fibrillation Seizure d/o CVA Functional Quadreplegia Dementia BPH HTN DM Hyperlipidemia ESRD on HD Sacral Decubitus stage 1/2 - Plan Plan: repeat labwork CBC, CMP, Lactic Acid ID consult pulmonary consult cardiology consult renal consult surgical consult CXR tomorrow continue Zosyn IV Nutritional Asmnt/Malnutr-PDOC - Dietary Evaluation Malnutrition Findings (Please click <Entered> for more info): Nutritional Asmnt/Malnutrition Start: 02/26/19 16: 42 Text: Status: Complete Freq: Protocol: Document 02/26/19 16:42 [email or web address] (Rec: 02/26/19 17:14 [email or web address] [email or web address]) Nutritional Asmnt/Malnutrition Patient General Information Nutritional Screening High Risk Consult Diagnosis AMS after HD, PNA, septic shock, hypotension Pertinent Medical Hx/Surgical Hx ESRD on HD, CVA, functional quadriplegia, DM, HTN, HLD, dysphagia s/p GT, sacral decubitus, hx of C.diff Subjective Information Pt on pressor and vent support , on trach, Nepro at 40 ml/hr upon visit, tolerating TF with no GRV per RN, +diarrhea, rectal tube placed. Pt on multiple abx. +unstageable sacrum, recommended TF meets 95% RDI. No family at bedside, unable to assess nutrition intake hx or wt hx. RN made aware of recs, states verbal order for 1500ml fluid restriction. Pending HD 02/27. Wt obtained by bedscale. Will reassess kcal needs once pt off vent support. Current Diet Order/ Nutrition Support Nepro at 40ml/hr x 20 hours= 800ml, 1440kcal, 65g protein, 581ml free water Patient / S.O Not Indicated Pertinent Medications vitamin C 500mg, Lipitor, folic acid, Levemir, Humalog, magnesium oxide, Reglan Q6h, norepinephrine, IV abx, Protonix, lactulose PRN Pertinent Labs (02/26) BUN 55, Cr 2.7, Glu 87, Alk Phos 106, Alb 3.3 Nutritional Hx/Data Height 1.68 m Height (Calculated Centimeters) 167.6 Current Weight (lbs) 68.492 kg Weight (Calculated Kilograms) 68.5 Weight (Calculated Grams) 14634.4 [place] Body Weight 142 lb Body Mass Index (BMI) 24.3 Weight Status Approriate GI Symptoms GI Symptoms Diarrhea Last BM 02/26 Difficult in: Swallowing Skin Integrity/Comment: unstageable sacrum Estimated Nutritional Goals BEE in Kcals: Adj wt of IBW Calories/Kcals/Kg 2195-2441 kcal Kcals Calculated 25-30 kcal/kg Protein: Adj wt of IBW Protein g/k-91g Protein Calculated 1.1-1.4 g/kg Fluid: ml 1000ml+UOP (dialysis) Nutritional Problem 2. Problem Problem Increased nutrient needs Etiology wound healing, ESRD Signs/Symptoms: unstageable sacrum, on HD 1. Problem Problem Inadequate enteral infusion Etiology new admit Signs/Symptoms: Nepro at 40ml/hr x 20 hours meets 89% kcal, 90% protein needs (suboptimal). Intervention/Recommendation Comments 1. Increase Nepro to 45 ml/hr goal rate x 20 hours= 900ml, 1620kcal, 73g protein, 654ml free water; meets 100% estimated kcal/protein needs 2. Consider water flush 100ml Q6h per MD 3. F/U as high risk in 2-3 days Expected Outcomes/Goals Expected Outcomes/Goals 1. Pt to meet at least 90% of nutritional needs via nutrition support with tolerance 2. Monitor TF rate, tolerance, wt, skin integrity and labs Mera Kaplan RD
[2019-03-02] MEDS ORDERED: Heparin Sod 5,000Units/ML 5,000 UNITS/ML VIAL SUBQ STA (07:42)
[2019-03-02 07:56] LABS: PaCO2 35.5 mmHg (35.0-45.0); PaO2 124.3 mmHg (80.0-100.0); pH 7.507 (7.35-7.45); sO2c 98.7 % (92.0-100.0)
[2019-03-02] MEDS: Apixaban 2.5 MG TABLET PO SCH (08:51)
[2019-03-02] MEDS: Pantoprazole 40 mg/Packet GT SCH (08:51)
[2019-03-02] MEDS: Lactobacillus Rhamnosus GG 15 Billion CFU CAP.SPRINK PO SCH (08:51)
[2019-03-02] MEDS: Insulin Glargine 100 units/ml 10ml Vial SUBQ SCH (08:52)
[2019-03-02] MEDS: Vancomycin HCL 250 mg /10mL UDC PO SCH ×3 (08:52→16:04)
[2019-03-02] MEDS: Polyvinyl Alcohol Ophth Soln 15 mL Bottle EACH EYE SCH ×2 (08:53→17:45)
[2019-03-02] MEDS: Venelex 60gm Tube TP SCH ×2 (08:53→17:45)
[2019-03-02] MEDS: Chlorhexidine Gluconate 0.12% 15mL Mouthwash MM SCH (08:54)
--- NOTE | 2019-03-02 10:55 | Infectious Disease Prog Note ---
Infectious Disease Subjective - Review of Systems Service Date: 03/02/19 Subjective: There is no new change, no fever. on the ventilator. s/p trach and peg. Infectious Disease Objective - Results Result Diagrams: 03/02/19 04:10 03/02/19 04:10 Recent Labs: Laboratory Last Values WBC 9.3 Th/cmm (4.8-10.8) 03/02/19 04:10 RBC 2.90 Mil/cmm (3.80-5.80) L 03/02/19 04:10 Hgb 8.8 gm/dL (12-16) L 03/02/19 04:10 Hct 26.5 % (41.0-60) L D 03/02/19 04:10 MCV 91.3 fl (80-99) 03/02/19 04:10 MCH 30.2 pg (27.0-31.0) 03/02/19 04:10 MCHC Differential 33.1 pg (28.0-36.0) 03/02/19 04:10 RDW 16.9 % (11.5-20.0) 03/02/19 04:10 Plt Count 204 Th/cmm (150-400) 03/02/19 04:10 MPV 8.3 fl 03/02/19 04:10 Add Manual Diff YES 02/26/19 04:45 Neutrophils % 73.0 % (40.0-80.0) 03/02/19 04:10 Band Neutrophils % 0 % (0-10) 02/26/19 04:45 Lymphocytes % 13.7 % (20.0-50.0) L 03/02/19 04:10 Monocytes % 7.7 % (2.0-10.0) 03/02/19 04:10 Eosinophils % 5.3 % (0.0-5.0) H 03/02/19 04:10 Basophils % 0.3 % (0.0-2.0) 03/02/19 04:10 Neutrophils (Manual) 86 % (40-80) H 02/26/19 04:45 Lymphocytes 7 % (20-50) L 02/26/19 04:45 Monocytes 5 % (2-10) 02/26/19 04:45 Eosinophils 2 % (0-5) 02/26/19 04:45 Basophils 0 % (0-3) 02/26/19 04:45 Platelet Estimate ADEQUATE (NORMAL) 02/26/19 04:45 PT 11.0 SECONDS (9.5-11.5) 02/26/19 04:45 INR 1.06 (0.5-1.4) 02/26/19 04:45 Specimen Source Arterial 03/02/19 07:48 Sample Site LB 03/02/19 07:48 pH 7.507 (7.35-7.45) H 03/02/19 07:48 pCO2 35.5 mmHg (35.0-45.0) 03/02/19 07:48 pO2 124.3 mmHg (80.0-100.0) H 03/02/19 07:48 HCO3 27.5 mEq/L (20.0-26.0) H 03/02/19 07:48 Base Excess 4.6 mEq/L (-3.0-3.0) H 03/02/19 07:48 O2 Saturation 98.7 % (92.0-100.0) 03/02/19 07:48 Yeison Test N/A 03/02/19 07:48 Vent Rate 10 03/02/19 07:48 Inspired O2 30 03/02/19 07:48 Tidal Volume 450 03/02/19 07:48 PEEP 5 03/02/19 07:48 Pressure (ins/psv/peep) 10 03/02/19 07:48 Critical Value DM 03/02/19 07:48 Sodium 136 mEq/L (136-145) 03/02/19 04:10 Potassium 2.6 mEq/L (3.5-5.1) L* 03/02/19 04:10 Chloride 95 mEq/L (98-107) L 03/02/19 04:10 Carbon Dioxide 31.0 mEq/L (21.0-31.0) 03/02/19 04:10 Anion Gap 12.6 (7.0-16.0) 03/02/19 04:10 BUN 34 mg/dL (7-25) H 03/02/19 04:10 Creatinine 2.0 mg/dL (0.7-1.3) H 03/02/19 04:10 Est GFR ( Amer) TNP 03/02/19 04:10 Est GFR (Non-Af Amer) TNP 03/02/19 04:10 BUN/Creatinine Ratio 17.0 03/02/19 04:10 Glucose 134 mg/dL (70-105) H 03/02/19 04:10 POC Glucose 108 MG/DL (70 - 105) H 03/02/19 06:18 Whole Bld Lactic Acid 0.69 mmol/L (0.60-1.99) 02/26/19 06:05 Calcium 8.9 mg/dL (8.6-10.3) 03/02/19 04:10 Magnesium 2.1 mg/dL (1.9-2.7) 02/28/19 04:50 Total Bilirubin 0.6 mg/dL (0.3-1.0) 03/02/19 04:10 Direct Bilirubin 0.19 mg/dL (0.0-0.2) 03/02/19 04:10 AST 24 U/L (13-39) 03/02/19 04:10 ALT 29 U/L (7-52) 03/02/19 04:10 Alkaline Phosphatase 107 U/L (34-104) H 03/02/19 04:10 Ammonia 53 umol/L (16-53) 02/27/19 04:45 Total Protein 6.2 gm/dL (6.0-8.3) 03/02/19 04:10 Albumin 2.8 gm/dL (4.2-5.5) L 03/02/19 04:10 Globulin 3.4 gm/dL 03/02/19 04:10 Albumin/Globulin Ratio 0.8 (1.0-1.8) L 03/02/19 04:10 TSH 2.68 uIU/ml (0.34-5.60) 02/27/19 04:45 Stool Occult Blood NEGATIVE (NEGATIVE) 03/01/19 05:45 Random Vancomycin 21.3 ug/mL (5.0-40.0) 03/02/19 04:10 Blood Type O POSITIVE 02/28/19 14:25 Antibody Screen NEGATIVE 02/28/19 14:25 Crossmatch See Detail 02/28/19 14:25 - Physical Exam Vitals and I&O: Vital Signs Temp 98.2 F 03/02/19 08:00 Pulse 78 03/02/19 09:33 Resp 22 06/04/19 09:00 BP 129/67 03/02/19 09:00 Pulse Ox 98 03/02/19 09:33 Intake & Output 03/01/19 03/02/19 03/02/19 18:59 06:59 18:59 Intake Total 700 700 Output Total 1700 250 Balance -1000 450 Weight (lbs) 69.218 kg 69.173 kg Intake: Intake, IV Amount 100 100 Piperacillin Sodium/ 100 100 Tazobact 2.25 gm In Sodium Chloride 0.9% 50 ml @ 100 mls/hr IV Q6H [facility] Rx#:[id number] Tube Feeding 480 440 Other 120 160 Output: Stool 50 250 Hemodialysis 1650 Other: Stool Characteristics Liquid Liquid Liquid Brown Brown Brown Weight Source Bedscale Bedscale Active Medications: Current Medications Acetaminophen (Tylenol 650mg/20.3ml Suspension) 650 mg GT Q6H PRN PRN Reason: Fever >101 Stop: 04/27/19 01:35 Last Admin: 02/26/19 23:38 Dose: 650 mg Acetaminophen (Tylenol) 650 mg GT Q4HR PRN PRN Reason: Pain or Fever >101 Stop: 04/27/19 05:39 Last Admin: 03/01/19 16:43 Dose: 650 mg Albuterol/Ipratropium (Duoneb Neb) 3 ml HHN Q2HRT PRN PRN Reason: Shortness of Breath Stop: 04/27/19 05:39 Albuterol/Ipratropium (Duoneb Neb) 3 ml HHN Q4HRT [facility] Stop: 04/27/19 14:59 Last Admin: 03/02/19 07:17 Dose: 3 ml Amlodipine Besylate (Norvasc) 5 mg GT DAILY [facility] Stop: 04/27/19 08:59 Last Admin: 03/02/19 08:51 Dose: Not Given Artificial Tears (Artificial Tears Ophth Soln) 1 drop EACH EYE BID [facility] Stop: 04/27/19 08:59 Last Admin: 03/02/19 08:53 Dose: 1 drop Ascorbic Acid (Vitamin C) 500 mg GT DAILY [facility] Stop: 04/27/19 08:59 Last Admin: 03/02/19 08:50 Dose: 500 mg Atorvastatin Calcium (Lipitor) 40 mg GT HS [facility] Stop: 04/27/19 20:59 Last Admin: 03/01/19 20:37 Dose: 40 mg Budesonide (Pulmicort) 0.5 mg HHN BIDRT [facility] Stop: 04/27/19 18:59 Last Admin: 03/02/19 07:36 Dose: 0.5 mg [place] Oil/[place] Balsam/Trypsin (Venelex) 1 appl TP BID [facility] Stop: 04/27/19 09:14 Last Admin: 03/02/19 08:53 Dose: 1 appl Chlorhexidine Gluconate (Peridex) 15 ml MM 0800,1999 [facility] Stop: 04/27/19 07:59 Last Admin: 03/02/19 08:54 Dose: 15 ml Dextrose (D50w) 50 ml IVP PRN PRN PRN Reason: Blood Glucose less than 70 Stop: 04/27/19 00:25 Dextrose (Glutose 40%) 18.75 gm PO PRN PRN PRN Reason: Blood Glucose less than 70 Stop: 04/27/19 00:25 Epoetin [place] (Epogen) 6,000 units SUBQ TuThSa [facility] Stop: 05/01/19 14:59 Folic Acid (Folate) 1 mg GT DAILY [facility] Stop: 04/27/19 08:59 Last Admin: 03/02/19 08:51 Dose: 1 mg Glucagon (Glucagen) 1 mg IM PRN PRN PRN Reason: Blood Glucose less than 70 Stop: 04/27/19 00:25 Norepinephrine Bitartrate 4 mg (/ Dextrose) 254 mls @ 0 mls/hr IV TITR PRN; Protocol PRN Reason: BP MAINTENANCE (PER PROTOCOL) Stop: 04/27/19 00:34 Last Titration: 02/26/19 07:39 Dose: 0 mcg/min, 0 mls/hr Piperacillin Sod/Tazobactam (Sod 2.25 gm/ Sodium Chloride) 50 mls @ 100 mls/hr IV Q6H [facility] Stop: 04/27/19 07:59 Last Admin: 03/02/19 10:40 Dose: 100 mls/hr Albumin Human (Albuminar 25%) 25 gm in 100 mls @ 50 mls/hr IV PRN PRN PRN Reason: BP Support During HD Stop: 05/01/19 00:00 Sodium Chloride (Nacl 0.9%) 500 mls @ 0 mls/hr IV .Q0M PRN PRN Reason: BP Support During Hemodialysis Stop: 03/02/19 23:59 Insulin Glargine (Lantus Insulin) 20 units SUBQ Q12HR [facility] Stop: 04/27/19 20:59 Last Admin: 03/02/19 08:52 Dose: Not Given Insulin Human Lispro (Humalog Insulin Sliding Scale) 0 units SUBQ Q6HR [facility]; Protocol Stop: 04/27/19 05:59 Last Admin: 03/02/19 06:21 Dose: Not Given Lactobacillus Rhamnosus (Culturelle 15b) 1 each PO DAILY [facility] Stop: 04/28/19 08:59 Last Admin: 03/02/19 08:51 Dose: 1 each Lactulose (Cephulac) 30 gm GT DAILY PRN PRN Reason: Constipation Levetiracetam (Keppra) 750 mg PO Q12H [facility] Stop: 04/27/19 08:59 Last Admin: 03/02/19 08:50 Dose: 750 mg Magnesium Oxide (Mag-Oxide) 400 mg GT DAILY [facility] Stop: 04/27/19 08:59 Last Admin: 03/02/19 08:51 Dose: 400 mg Metoclopramide HCl (Reglan) 5 mg GT Q6H [facility] Stop: 04/27/19 07:59 Last Admin: 03/02/19 08:56 Dose: 5 mg Metoprolol Tartrate (Lopressor) 25 mg GT BID [facility] Stop: 04/27/19 08:59 Last Admin: 03/02/19 08:53 Dose: Not Given Miscellaneous (Zosyn Iv Per Pharmacy) 1 ea PRN PRN PRN Reason: PROTOCOL Stop: 04/26/19 21:23 Miscellaneous (Vancomycin Iv Per Pharmacy) 1 ea PRN PRN PRN Reason: PROTOCOL Stop: 04/27/19 06:05 Miscellaneous (Probiotic Screen) 1 ea PRN PRN PRN Reason: PROTOCOL Stop: 04/27/19 13:03 Miscellaneous (Vte Chemical Prophylaxis Screen/ Admission) 1 ea PRN PRN PRN Reason: PROTOCOL Stop: 04/27/19 13:10 Pantoprazole Sodium (Protonix) 40 mg GT DAILY [facility] Stop: 04/27/19 08:59 Last Admin: 03/02/19 08:51 Dose: 40 mg Vancomycin HCl (Vancomycin Oral) 250 mg PO QID [facility] Stop: 04/28/19 08:59 Last Admin: 03/02/19 08:52 Dose: 250 mg General: no acute distress, well developed, well nourished HEENT: atraumatic, normocephalic, PERRLA, EOMI Neck: supple, no thyromegaly Cardiovascular: S1S2, regular Lungs: clear to auscultation bilaterally, clear to percussion Abdomen: soft, bowel sounds, other (G tube ok, rectal tube), no tender, no distended, no mass, no hepatomegaly, no splenomegaly Extremities: lines (Left arm PICC line, Right SC HD catheter.), no cyanosis, no clubbing, no edema Neurological: awake, alert, other (moves his extremities, spontaneously.) Skin: other (Sacral wound) - Procedures Procedures: Procedures Procedure Code Date RESPIRATORY VENTILATION, GREATER THAN 96 CONSECUTIVE HOURS [id number] 02/25/19 Infectious Disease Assmt/Plan - Assessment Assessment: 1. Septic shock, resolved. r/o Bacteremia. 2. Pneumonia 3. Respiratory failure, on ventilator. 4. History of pneumonia. 5. History of Karm[place] infection. 6. History of Clostridium difficile colitis recently. 7. Cerebrovascular accident. 8. Ventilator-dependent respiratory failure. 9. Benign prostatic hypertrophy. 10. Hyperlipidemia. 11. Decubitus sacral large necrotic ulcer, unstageable. - Plan Plan: Continue vancO PO x 10 more days and ZosynD5/10. May change zosyn to augmentin 500mg po daily for 5 days. Wound care. ?diverting colostomy. may be considered. Nutritional Asmnt/Malnutr-PDOC - Dietary Evaluation Malnutrition Findings (Please click <Entered> for more info): Nutritional Asmnt/Malnutrition Start: 02/26/19 16: 42 Text: Status: Complete Freq: Protocol: Document 02/26/19 16:42 [email or web address] (Rec: 02/26/19 17:14 [email or web address] [id number]) Nutritional Asmnt/Malnutrition Patient General Information Nutritional Screening High Risk Consult Diagnosis AMS after HD, PNA, septic shock, hypotension Pertinent Medical Hx/Surgical Hx ESRD on HD, CVA, functional quadriplegia, DM, HTN, HLD, dysphagia s/p GT, sacral decubitus, hx of C.diff Subjective Information Pt on pressor and vent support , on trach, Nepro at 40 ml/hr upon visit, tolerating TF with no GRV per RN, +diarrhea, rectal tube placed. Pt on multiple abx. +unstageable sacrum, recommended TF meets 95% RDI. No family at bedside, unable to assess nutrition intake hx or wt hx. RN made aware of recs, states verbal order for 1500ml fluid restriction. Pending HD 02/27. Wt obtained by bedscale. Will reassess kcal needs once pt off vent support. Current Diet Order/ Nutrition Support Nepro at 40ml/hr x 20 hours= 800ml, 1440kcal, 65g protein, 581ml free water Patient / S.O Not Indicated Pertinent Medications vitamin C 500mg, Lipitor, folic acid, Levemir, Humalog, magnesium oxide, Reglan Q6h, norepinephrine, IV abx, Protonix, lactulose PRN Pertinent Labs (02/26) BUN 55, Cr 2.7, Glu 87, Alk Phos 106, Alb 3.3 Nutritional Hx/Data Height 1.68 m Height (Calculated Centimeters) 167.6 Current Weight (lbs) 68.492 kg Weight (Calculated Kilograms) 68.5 Weight (Calculated Grams) 16350.4 [place] Body Weight 142 lb Body Mass Index (BMI) 24.3 Weight Status Approriate GI Symptoms GI Symptoms Diarrhea Last BM 02/26 Difficult in: Swallowing Skin Integrity/Comment: unstageable sacrum Estimated Nutritional Goals BEE in Kcals: Adj wt of IBW Calories/Kcals/Kg 9568-2389 kcal Kcals Calculated 25-30 kcal/kg Protein: Adj wt of IBW Protein g/k-91g Protein Calculated 1.1-1.4 g/kg Fluid: ml 1000ml+UOP (dialysis) Nutritional Problem 2. Problem Problem Increased nutrient needs Etiology wound healing, ESRD Signs/Symptoms: unstageable sacrum, on HD 1. Problem Problem Inadequate enteral infusion Etiology new admit Signs/Symptoms: Nepro at 40ml/hr x 20 hours meets 89% kcal, 90% protein needs (suboptimal). Intervention/Recommendation Comments 1. Increase Nepro to 45 ml/hr goal rate x 20 hours= 900ml, 1620kcal, 73g protein, 654ml free water; meets 100% estimated kcal/protein needs 2. Consider water flush 100ml Q6h per MD 3. F/U as high risk in 2-3 days Expected Outcomes/Goals Expected Outcomes/Goals 1. Pt to meet at least 90% of nutritional needs via nutrition support with tolerance 2. Monitor TF rate, tolerance, wt, skin integrity and labs Mera Kaplan RD
[2019-03-02] MEDS ORDERED: Epoetin Alfa 20000 Units/mL Vial SUBQ SCH (15:00)
--- NOTE | 2019-03-02 16:56 | General Progress Note ---
Subjective - Review of Systems Service Date: 03/02/19 Subjective: Patient still on ventilatory tracheostomy patient having dialysis and transfusion Objective - Results Result Diagrams: 03/02/19 04:10 03/02/19 04:10 Recent Labs: Laboratory Last Values WBC 9.3 Th/cmm (4.8-10.8) 03/02/19 04:10 RBC 2.90 Mil/cmm (3.80-5.80) L 03/02/19 04:10 Hgb 8.8 gm/dL (12-16) L 03/02/19 04:10 Hct 26.5 % (41.0-60) L D 03/02/19 04:10 MCV 91.3 fl (80-99) 03/02/19 04:10 MCH 30.2 pg (27.0-31.0) 03/02/19 04:10 MCHC Differential 33.1 pg (28.0-36.0) 03/02/19 04:10 RDW 16.9 % (11.5-20.0) 03/02/19 04:10 Plt Count 204 Th/cmm (150-400) 03/02/19 04:10 MPV 8.3 fl 03/02/19 04:10 Add Manual Diff YES 02/26/19 04:45 Neutrophils % 73.0 % (40.0-80.0) 03/02/19 04:10 Band Neutrophils % 0 % (0-10) 02/26/19 04:45 Lymphocytes % 13.7 % (20.0-50.0) L 03/02/19 04:10 Monocytes % 7.7 % (2.0-10.0) 03/02/19 04:10 Eosinophils % 5.3 % (0.0-5.0) H 03/02/19 04:10 Basophils % 0.3 % (0.0-2.0) 03/02/19 04:10 Neutrophils (Manual) 86 % (40-80) H 02/26/19 04:45 Lymphocytes 7 % (20-50) L 02/26/19 04:45 Monocytes 5 % (2-10) 02/26/19 04:45 Eosinophils 2 % (0-5) 02/26/19 04:45 Basophils 0 % (0-3) 02/26/19 04:45 Platelet Estimate ADEQUATE (NORMAL) 02/26/19 04:45 PT 11.0 SECONDS (9.5-11.5) 02/26/19 04:45 INR 1.06 (0.5-1.4) 02/26/19 04:45 Specimen Source Arterial 03/02/19 07:48 Sample Site LB 03/02/19 07:48 pH 7.507 (7.35-7.45) H 03/02/19 07:48 pCO2 35.5 mmHg (35.0-45.0) 03/02/19 07:48 pO2 124.3 mmHg (80.0-100.0) H 03/02/19 07:48 HCO3 27.5 mEq/L (20.0-26.0) H 03/02/19 07:48 Base Excess 4.6 mEq/L (-3.0-3.0) H 03/02/19 07:48 O2 Saturation 98.7 % (92.0-100.0) 03/02/19 07:48 Yeison Test N/A 03/02/19 07:48 Vent Rate 10 03/02/19 07:48 Inspired O2 30 03/02/19 07:48 Tidal Volume 450 03/02/19 07:48 PEEP 5 03/02/19 07:48 Pressure (ins/psv/peep) 10 03/02/19 07:48 Critical Value DM 03/02/19 07:48 Sodium 136 mEq/L (136-145) 03/02/19 04:10 Potassium 2.6 mEq/L (3.5-5.1) L* 03/02/19 04:10 Chloride 95 mEq/L (98-107) L 03/02/19 04:10 Carbon Dioxide 31.0 mEq/L (21.0-31.0) 03/02/19 04:10 Anion Gap 12.6 (7.0-16.0) 03/02/19 04:10 BUN 34 mg/dL (7-25) H 03/02/19 04:10 Creatinine 2.0 mg/dL (0.7-1.3) H 03/02/19 04:10 Est GFR ( Amer) TNP 03/02/19 04:10 Est GFR (Non-Af Amer) TNP 03/02/19 04:10 BUN/Creatinine Ratio 17.0 03/02/19 04:10 Glucose 134 mg/dL (70-105) H 03/02/19 04:10 POC Glucose 175 MG/DL (70 - 105) H 03/02/19 12:44 Whole Bld Lactic Acid 0.69 mmol/L (0.60-1.99) 02/26/19 06:05 Calcium 8.9 mg/dL (8.6-10.3) 03/02/19 04:10 Magnesium 2.1 mg/dL (1.9-2.7) 02/28/19 04:50 Total Bilirubin 0.6 mg/dL (0.3-1.0) 03/02/19 04:10 Direct Bilirubin 0.19 mg/dL (0.0-0.2) 03/02/19 04:10 AST 24 U/L (13-39) 03/02/19 04:10 ALT 29 U/L (7-52) 03/02/19 04:10 Alkaline Phosphatase 107 U/L (34-104) H 03/02/19 04:10 Ammonia 53 umol/L (16-53) 02/27/19 04:45 Total Protein 6.2 gm/dL (6.0-8.3) 03/02/19 04:10 Albumin 2.8 gm/dL (4.2-5.5) L 03/02/19 04:10 Globulin 3.4 gm/dL 03/02/19 04:10 Albumin/Globulin Ratio 0.8 (1.0-1.8) L 03/02/19 04:10 TSH 2.68 uIU/ml (0.34-5.60) 02/27/19 04:45 Stool Occult Blood NEGATIVE (NEGATIVE) 03/01/19 05:45 Random Vancomycin 21.3 ug/mL (5.0-40.0) 03/02/19 04:10 Blood Type O POSITIVE 02/28/19 14:25 Antibody Screen NEGATIVE 02/28/19 14:25 Crossmatch See Detail 02/28/19 14:25 - Physical Exam Vitals and I&O: Vital Signs Temp 97.8 F 03/02/19 12:00 Pulse 98 03/02/19 16:04 Resp 21 03/02/19 12:00 BP 140/72 03/02/19 16:04 Pulse Ox 99 03/02/19 16:00 Intake & Output 03/01/19 03/02/19 03/02/19 18:59 06:59 18:59 Intake Total 700 700 100 Output Total 1700 250 Balance -1000 450 100 Weight (lbs) 69.218 kg 69.173 kg Intake: Intake, IV Amount 100 100 100 Piperacillin Sodium/ 100 100 100 Tazobact 2.25 gm In Sodium Chloride 0.9% 50 ml @ 100 mls/hr IV Q6H [facility] Rx#:[id number] Tube Feeding 480 440 Other 120 160 Output: Stool 50 250 Hemodialysis 1650 Other: Stool Characteristics Liquid Liquid Liquid Brown Brown Brown Weight Source Bedscale Bedscale Active Medications: Current Medications Acetaminophen (Tylenol 650mg/20.3ml Suspension) 650 mg GT Q6H PRN PRN Reason: Fever >101 Stop: 04/27/19 01:35 Last Admin: 03/02/19 16:04 Dose: 650 mg Acetaminophen (Tylenol) 650 mg GT Q4HR PRN PRN Reason: Pain or Fever >101 Stop: 04/27/19 05:39 Last Admin: 03/01/19 16:43 Dose: 650 mg Albuterol/Ipratropium (Duoneb Neb) 3 ml HHN Q2HRT PRN PRN Reason: Shortness of Breath Stop: 04/27/19 05:39 Albuterol/Ipratropium (Duoneb Neb) 3 ml HHN Q4HRT [facility] Stop: 04/27/19 14:59 Last Admin: 03/02/19 15:23 Dose: 3 ml Amlodipine Besylate (Norvasc) 5 mg GT DAILY [facility] Stop: 04/27/19 08:59 Last Admin: 03/02/19 08:51 Dose: Not Given Artificial Tears (Artificial Tears Ophth Soln) 1 drop EACH EYE BID [facility] Stop: 04/27/19 08:59 Last Admin: 03/02/19 08:53 Dose: 1 drop Ascorbic Acid (Vitamin C) 500 mg GT DAILY [facility] Stop: 04/27/19 08:59 Last Admin: 03/02/19 08:50 Dose: 500 mg Atorvastatin Calcium (Lipitor) 40 mg GT HS [facility] Stop: 04/27/19 20:59 Last Admin: 03/01/19 20:37 Dose: 40 mg Budesonide (Pulmicort) 0.5 mg HHN BIDRT [facility] Stop: 04/27/19 18:59 Last Admin: 03/02/19 07:36 Dose: 0.5 mg [place] Oil/Beninese Balsam/Trypsin (Venelex) 1 appl TP BID [facility] Stop: 04/27/19 09:14 Last Admin: 03/02/19 08:53 Dose: 1 appl Chlorhexidine Gluconate (Peridex) 15 ml MM 0800,1999 [facility] Stop: 04/27/19 07:59 Last Admin: 03/02/19 08:54 Dose: 15 ml Dextrose (D50w) 50 ml IVP PRN PRN PRN Reason: Blood Glucose less than 70 Stop: 04/27/19 00:25 Dextrose (Glutose 40%) 18.75 gm PO PRN PRN PRN Reason: Blood Glucose less than 70 Stop: 04/27/19 00:25 Epoetin [place] (Epogen) 6,000 units SUBQ TuThSa [facility] Stop: 05/01/19 14:59 Last Admin: 03/02/19 16:06 Dose: 6,000 units Folic Acid (Folate) 1 mg GT DAILY [facility] Stop: 04/27/19 08:59 Last Admin: 03/02/19 08:51 Dose: 1 mg Glucagon (Glucagen) 1 mg IM PRN PRN PRN Reason: Blood Glucose less than 70 Stop: 04/27/19 00:25 Norepinephrine Bitartrate 4 mg (/ Dextrose) 254 mls @ 0 mls/hr IV TITR PRN; Protocol PRN Reason: BP MAINTENANCE (PER PROTOCOL) Stop: 04/27/19 00:34 Last Titration: 02/26/19 07:39 Dose: 0 mcg/min, 0 mls/hr Piperacillin Sod/Tazobactam (Sod 2.25 gm/ Sodium Chloride) 50 mls @ 100 mls/hr IV Q6H [facility] Stop: 04/27/19 07:59 Last Infusion: 03/02/19 16:00 Dose: Infused Albumin Human (Albuminar 25%) 25 gm in 100 mls @ 50 mls/hr IV PRN PRN PRN Reason: BP Support During HD Stop: 05/01/19 00:00 Sodium Chloride (Nacl 0.9%) 500 mls @ 0 mls/hr IV .Q0M PRN PRN Reason: BP Support During Hemodialysis Stop: 03/02/19 23:59 Insulin Glargine (Lantus Insulin) 20 units SUBQ Q12HR [facility] Stop: 04/27/19 20:59 Last Admin: 03/02/19 08:52 Dose: Not Given Insulin Human Lispro (Humalog Insulin Sliding Scale) 0 units SUBQ Q6HR [facility]; Protocol Stop: 04/27/19 05:59 Last Admin: 03/02/19 13:28 Dose: 2 units Lactobacillus Rhamnosus (Culturelle 15b) 1 each PO DAILY [facility] Stop: 04/28/19 08:59 Last Admin: 03/02/19 08:51 Dose: 1 each Lactulose (Cephulac) 30 gm GT DAILY PRN PRN Reason: Constipation Levetiracetam (Keppra) 750 mg PO Q12H [facility] Stop: 04/27/19 08:59 Last Admin: 03/02/19 08:50 Dose: 750 mg Magnesium Oxide (Mag-Oxide) 400 mg GT DAILY [facility] Stop: 04/27/19 08:59 Last Admin: 03/02/19 08:51 Dose: 400 mg Metoclopramide HCl (Reglan) 5 mg GT Q6H [facility] Stop: 04/27/19 07:59 Last Admin: 03/02/19 13:28 Dose: 5 mg Metoprolol Tartrate (Lopressor) 25 mg GT BID [facility] Stop: 04/27/19 08:59 Last Admin: 03/02/19 16:04 Dose: 25 mg Miscellaneous (Zosyn Iv Per Pharmacy) 1 [facility] PRN PRN PRN Reason: PROTOCOL Stop: 04/26/19 21:23 Miscellaneous (Vancomycin Iv Per Pharmacy) 1 [facility] PRN PRN PRN Reason: PROTOCOL Stop: 04/27/19 06:05 Miscellaneous (Probiotic Screen) 1 [facility] PRN PRN PRN Reason: PROTOCOL Stop: 04/27/19 13:03 Miscellaneous (Vte Chemical Prophylaxis Screen/ Admission) 1 [facility] PRN PRN PRN Reason: PROTOCOL Stop: 04/27/19 13:10 Pantoprazole Sodium (Protonix) 40 mg GT DAILY [facility] Stop: 04/27/19 08:59 Last Admin: 03/02/19 08:51 Dose: 40 mg Vancomycin HCl (Vancomycin Oral) 250 mg PO QID [facility] Stop: 04/28/19 08:59 Last Admin: 03/02/19 16:04 Dose: 250 mg General: Alert, No acute distress Neck: Supple, Other (s/p tracheostomy) Cardiovascular: Other (irregularly irregular) Lungs: Clear to auscultation Abdomen: Bowel sounds, Soft Extremities: Edema, no Clubbing, no Cyanosis Skin: Breakdown (sacral decubitus ) - Procedures Procedures: Procedures Procedure Code Date RESPIRATORY VENTILATION, GREATER THAN 96 CONSECUTIVE HOURS [id number] 02/25/19 Assessment/Plan - Assessment Assessment: Septic shock Hypotension Chronic respiratory failure on ventilator with tracheostomy Aspiration pneumonia pseudomonas Ventricular tachycardia Atrial fibrillation converted to normal sinus rhythm C. difficile colitis Seizure disorder CVA with left affect [facility] Friday end-stage renal disease on dialysis Dementia 9 deficiency anemia Sacral decubitus ulcer Dysphagia with PEG placement protein calorie malnutrition - Plan Plan: Transfusion with dialysis IV antibiotics continue same treatment patient off and all vasopressors Patient stable for discharge Nutritional Asmnt/Malnutr-PDOC - Dietary Evaluation Malnutrition Findings (Please click <Entered> for more info): Nutritional Asmnt/Malnutrition Start: 02/26/19 16: 42 Text: Status: Complete Freq: Protocol: Document 02/26/19 16:42 [email or web address] (Rec: 02/26/19 17:14 [email or web address] [id number]) Nutritional Asmnt/Malnutrition Patient General Information Nutritional Screening High Risk Consult Diagnosis AMS after HD, PNA, septic shock, hypotension Pertinent Medical Hx/Surgical Hx ESRD on HD, CVA, functional quadriplegia, DM, HTN, HLD, dysphagia s/p GT, sacral decubitus, hx of C.diff Subjective Information Pt on pressor and vent support , on trach, Nepro at 40 ml/hr upon visit, tolerating TF with no GRV per RN, +diarrhea, rectal tube placed. Pt on multiple abx. +unstageable sacrum, recommended TF meets 95% RDI. No family at bedside, unable to assess nutrition intake hx or wt hx. RN made aware of recs, states verbal order for 1500ml fluid restriction. Pending HD 02/27. Wt obtained by bedscale. Will reassess kcal needs once pt off vent support. Current Diet Order/ Nutrition Support Nepro at 40ml/hr x 20 hours= 800ml, 1440kcal, 65g protein, 581ml free water Patient / S.O Not Indicated Pertinent Medications vitamin C 500mg, Lipitor, folic acid, Levemir, Humalog, magnesium oxide, Reglan Q6h, norepinephrine, IV abx, Protonix, lactulose PRN Pertinent Labs (02/26) BUN 55, Cr 2.7, Glu 87, Alk Phos 106, Alb 3.3 Nutritional Hx/Data Height 1.68 m Height (Calculated Centimeters) 167.6 Current Weight (lbs) 68.492 kg Weight (Calculated Kilograms) 68.5 Weight (Calculated Grams) 56504.4 [place] Body Weight 142 lb Body Mass Index (BMI) 24.3 Weight Status Approriate GI Symptoms GI Symptoms Diarrhea Last BM 02/26 Difficult in: Swallowing Skin Integrity/Comment: unstageable sacrum Estimated Nutritional Goals BEE in Kcals: Adj wt of IBW Calories/Kcals/Kg 0888-6841 kcal Kcals Calculated 25-30 kcal/kg Protein: Adj wt of IBW Protein g/k-91g Protein Calculated 1.1-1.4 g/kg Fluid: ml 1000ml+UOP (dialysis) Nutritional Problem 2. Problem Problem Increased nutrient needs Etiology wound healing, ESRD Signs/Symptoms: unstageable sacrum, on HD 1. Problem Problem Inadequate enteral infusion Etiology new admit Signs/Symptoms: Nepro at 40ml/hr x 20 hours meets 89% kcal, 90% protein needs (suboptimal). Intervention/Recommendation Comments 1. Increase Nepro to 45 ml/hr goal rate x 20 hours= 900ml, 1620kcal, 73g protein, 654ml free water; meets 100% estimated kcal/protein needs 2. Consider water flush 100ml Q6h per MD 3. F/U as high risk in 2-3 days Expected Outcomes/Goals Expected Outcomes/Goals 1. Pt to meet at least 90% of nutritional needs via nutrition support with tolerance 2. Monitor TF rate, tolerance, wt, skin integrity and labs Mera Kaplan RD
--- NOTE | 2019-03-03 05:31 | Progress Notes ---
DATE: 03/02/2019 PULMONARY AND CRITICAL CARE PROGRESS NOTE PROBLEM LIST: 1. Acute on chronic respiratory failure. 2. Sepsis. 3. History of chronic renal failure, on hemodialysis with chronic right-sided changes. SYMPTOMS: The patient is awake, responding appropriately periodically, but no respiratory distress, on SIMV of 10. PHYSICAL EXAMINATION: VITAL SIGNS: The patient's temperature is 97.8, blood pressure 141/67, saturation is high 90s on 30%. NECK: Veins not visualized. CHEST: Shows diminished air entry with occasional secretory noise. HEART: Regular. ABDOMEN: Soft, nontender. LABORATORY DATA: White count is 9.3 K, hemoglobin 8.8 and ABG, pO2 is 154 on SIMV of 10 with 30%. ASSESSMENT: The patient clinically appears to be stable, improving sepsis, decreasing white count. PLANS AND SUGGESTIONS: We will go ahead and continue current treatment, leave out on SIMV mode and maybe 28%. Pulmonary baker, he is okay to let him go back to subacute unit. JOB# [id number]
--- NOTE | 2019-03-03 09:44 | Discharge Summary ---
DATE OF DISCHARGE: 03/02/2019 PRELIMINARY DIAGNOSES: 1. Altered mental status. 2. Encephalopathy. 3. Leukocytosis. 4. Anemia. 5. Aspiration pneumonia. 6. Upmmn-lt-cwnjsge respiratory failure, status post tracheostomy. 7. Sepsis. 8. Septic shock. 9. Pneumonia. 10. History of Clostridium difficile. 11. History of Karmen albicans. 12. Chronic atrial fibrillation. 13. Seizure disorder. 14. Cerebrovascular accident. 15. Functional quadriplegia. 16. Dementia. 17. Benign prostatic hypertrophy. 18. Hypertension. 19. Diabetes mellitus. 20. Hyperlipidemia. 21. End-stage renal disease, on hemodialysis. 22. Sacral decubitus, stage 1. DISCHARGE DIAGNOSES: 1. Altered mental status. 2. Encephalopathy. 3. Leukocytosis. 4. Anemia. 5. Aspiration pneumonia. 6. Vuykv-kj-uldxiit respiratory failure, status post tracheostomy. 7. Sepsis. 8. Septic shock. 9. Pneumonia. 10. History of Clostridium difficile. 11. History of Karmen albicans. 12. Chronic atrial fibrillation. 13. Seizure disorder. 14. Cerebrovascular accident. 15. Functional quadriplegia. 16. Dementia. 17. Benign prostatic hypertrophy. 18. Hypertension. 19. Diabetes mellitus. 20. Hyperlipidemia. 21. End-stage renal disease, on hemodialysis. 22. Sacral decubitus, stage 1. HISTORY OF PRESENT ILLNESS: This is a 73-year-old male who was initially at his dialysis center getting hemodialysis, during which time he was noted to have some altered mental status, was then subsequently transferred here to [facility] ER for evaluation. The patient has a history of xmznd-ag-mpkfjed respiratory failure, status post tracheostomy. The patient also has a history of sepsis, has a history of pneumonia that was positive for Pseudomonas as well as ESBL Klebsiella and influenza B, has had a history of C. difficile, has a history of Karmen albicans, has a history of atrial fibrillation, seizure disorder, CVA, functional quadriplegia, dementia, BPH, hypertension, diabetes mellitus, hyperlipidemia, end-stage renal disease, on hemodialysis and sacral decubitus. Initial lab work done in the ER revealed a white count of 16.7, hemoglobin of 9, hematocrit of 26.8, platelets 231,000. Sodium 142, potassium 3.5, BUN 47, creatinine 2.4, glucose 115. The patient also had an initial chest x-ray done in the ER which revealed no acute changes. The patient was subsequently transferred to the ICU for further evaluation and treatment. HOSPITAL COURSE: The patient improved during his hospital stay, was initially transferred to ICU with a high white count of 16,000, was started on IV vancomycin per pharmacy. The patient was seen and evaluated by ID. See dictated report. The patient also was seen by Nephrology for his chronic renal failure and hemodialysis. Please see dictated report. The patient also was seen by Pulmonary for his history of chronic respiratory failure. Please see dictated report. The patient's white count had decreased to 17.6 on 02/27/2019 and on 02/28/2019 dropped to 11,000 and on 03/01/2019 had improved to a normal level of 10.4 and on day of discharge on 03/02/2019 improved to 9.3. [facility] and to continue his current orders. JOB# [id number]
== END 2019-03-02 19:42 | DRG 870 ==
LOC: ER 19:00 → EDBD 19:00 → ICU 21:10
PROVIDERS: ADMIT Family Medicine; ATTEND Family Medicine
PROC: 5A1955Z Respiratory Ventilation, Greater than 96 Consecutive Hours (ICD-10-PCS; principal; 2019-02-25)
PROC: 30233N1 Transfusion of Nonautologous Red Blood Cells into Peripheral Vein, Percutaneous Approach (ICD-10-PCS; 2019-03-01)
PROC: 5A1D70Z Performance of Urinary Filtration, Intermittent, Less than 6 Hours Per Day (ICD-10-PCS; 2019-03-01)
PROC: 5A1D70Z Performance of Urinary Filtration, Intermittent, Less than 6 Hours Per Day (ICD-10-PCS; 2019-03-02)
DX: A41.9 Sepsis, unspecified organism (principal); R65.21 Severe sepsis with septic shock; J69.0 Pneumonitis due to inhalation of food and vomit; R53.2 Functional quadriplegia; N18.6 End stage renal disease; J96.20 Acute and chronic respiratory failure, unspecified whether with hypoxia or hypercapnia; Z99.11 Dependence on respirator [ventilator] status; A04.72 Enterocolitis due to Clostridium difficile, not specified as recurrent; I47.1 Supraventricular tachycardia; G93.40 Encephalopathy, unspecified; Z99.2 Dependence on renal dialysis; E11.22 Type 2 diabetes mellitus with diabetic chronic kidney disease; E78.5 Hyperlipidemia, unspecified; F03.90 Unspecified dementia, unspecified severity, without behavioral disturbance, psychotic disturbance, mood disturbance, and anxiety; G40.909 Epilepsy, unspecified, not intractable, without status epilepticus; N40.0 Benign prostatic hyperplasia without lower urinary tract symptoms; Z93.1 Gastrostomy status; Z93.0 Tracheostomy status; I48.2 Chronic atrial fibrillation; I69.30 Unspecified sequelae of cerebral infarction; D50.9 Iron deficiency anemia, unspecified; D63.1 Anemia in chronic kidney disease; E87.6 Hypokalemia; L89.151 Pressure ulcer of sacral region, stage 1; Z79.4 Long term (current) use of insulin; Z74.01 Bed confinement status
CPT/HCPCS: 36415-UA; 36600-90; 71045-TC; 80048-TC; 80053-TC; 80076-TC; 80202-TC; 82140-TC; 82270-TC; 82803-TC; 82948-90; 83036-90; 83605; 83735-TC; 84443-TC; 85007-TC; 85025-TC; 85610-TC; 86850-TC; 86900-TC; 86901-TC; 86922-TC; 87230-TC; 93005; 94002; 94003; 94640; 94760; A4217; J0885; J1644; J1815; J2543; J3370; J7030; J7040; P9016; X6452; Z7610